=== PATIENT | male | born 1960 | race Caucasian/White ===

== ENCOUNTER 2017-12-05 05:59 | Inpatient (IN) | payer BC, SELFPAY ==
[2017-12-05] VITALS (16 sets, daily range): BP systolic 115–139; BP diastolic 57–108; PULSE 85–156; RESP 16–26; TEMP 36.3–37; O2SAT 94–100; BMI 23.9; BMI 23.6
--- NOTE | 2017-12-05 06:07 | RAD_ITS ---
RAD/Chest 1 View (Portable) IMPRESSION: Stable COPD. Interstitial prominence, slightly more pronounced in the right base possible due to compression. No air bronchograms to suggest a confluent pneumonia detected. Electronically Signed: Kinjal Bernardo MD at 6:44 EDT , Service support ,
[2017-12-05] MEDS: dilTIAZem 25 MG/5 ML Vial 20 MG IV BOLUS (06:09)
[2017-12-05] MEDS: Aspirin 81 MG TAB.CHEW 324 MG PO (06:10)
[2017-12-05 06:18] LABS: Absolute Lymphocyte Count 1.79 X10^3/ul (0.83-4.51); Absolute Neutrophil Count 6.7 X10^3/uL (2.0-7.7); Basophil# 0.05 X10^3/uL; Basophil% 0.5 % (0-1); Eosinophil# 0.21 X10^3/uL; Eosinophils% 2.2 % (0-5); Hematocrit 45.1 % (40-54); Hemoglobin 14.8 g/dl (13.0-16.5); Lymphocyte # 1.79 X10^3/ul (4.0); Lymphocyte % 18.5 % (19-41); Mean Corp Hgb Conc 32.8 g/gl (32-36); Mean Corpuscular Volume 94.4 fL (80-94); Mean Platelet Vol. 11.5 fl (6.2-12.0); Monocyte# 0.91 X10^3/uL; Monocyte% 9.4 % (0-10); Neutrophil # 6.71 X10^3/uL (2.7-7.7); Neutrophil % 69.2 % (47-70); Platelet Count 233 K/mm3 (150-450); RBC Distribution Width CV 14.5 % (11.6-14.6); RBC Distribution Width SD 49.2 fl (35.1-43.9); Red Blood Count 4.78 M/mm3 (4.6-6.2); White Blood Count 9.7 K/mm3 (4.4-11.0)
[2017-12-05 06:23] LABS: POSITIVE COUNT NO; POSITIVE DIFFERENTIAL NO; POSITIVE MORPHOLOGY NO
[2017-12-05 06:53] LABS: Anion Gap 10 (5-15); BUN 10 mg/dL (7-18); BUN/Creat Ratio 10.7 RATIO (10-20); Calcium,Total 8.3 mg/dL (8.5-10.1); Chloride 105 mmol/L (98-107); Creatinine, Serum 0.93 mg/dL (0.70-1.30); EST Glomerular Filtration Rate 88 mL/min (>60); Est Glom Filt Rate - Afr Amer 107 mL/min (>60); Estimated Creatinine Clearance 92.21 ml/min; Glucose 103 mg/dL (74-106); Sodium Level 143 mmol/L (136-145)
--- NOTE | 2017-12-05 07:17 | ED.VISSUMM ---
- ER Visit Summary Date of Service: 12/05/17 Chief Complaint: Shortness of breath History of Present Illness: The patient is a 57 M presenting for evaluation secondary shortness of breath. Patient reports that at about 4:00 this morning he woke up and had a sudden onset of feeling that he was significantly short of breath. Patient states it was not associated with any sort of chest pain, and states that the shortness of breath was worse with exertion and really did not seem to have any sort of relieving factors. He denies that he has been having any illnesses recently, but does state that he has been having some intermittent palpitations over the course the last couple of weeks. Patient states that he has a history of hypertension but does not take his medications for this. Patient is a heavy smoker. Denies any DVT or PE risk factors. Review of systems otherwise negative. Physical Examination: Vital signs notable for heart rate of 150. Well-nourished male no acute distress. Moist mucous membranes. No JVD. Heart was irregular and significantly tachycardic without murmur noted. Lung sounds were clear. Abdomen was soft nontender. Extremities were nontender nonedematous 2+ radial pulses bilaterally symmetric skin was normal color no rash patient was alert and oriented with no lateralizing neurological deficits. Test Results: EKG demonstrates atrial fibrillation with a rapid ventricular rate, rate of 142 with nonspecific T-wave changes. CBC chemistry unremarkable troponin elevated to an indeterminate range at 0.06. Chest x-ray shows some interstitial changes, blood per radiology no evidence of confluent pneumonia. Emergency Department Course and Treatment: Patient presented secondary to atrial fibrillation with rapid ventricular rate. I did attempt vagal maneuvers on this patient in an attempt to slow down or convert him. This was unsuccessful, so the patient was given 20 mg of Cardizem and had improvement of his heart rate 200. Patient's workup does show some elevated troponin likely associated with cardiac strain from the patient's rapid rate. He had improvement on repeat evaluation, but I still believe he requires admission I discussed this with hospitalist Disposition: Admission Impression: 1. New onset atrial fibrillation with rapid ventricular rate This note was generated with [employer]ation software. It may contain incorrect words, spelling, and punctuation that were not noted in review of the chart prior to signing ED Disposition - Plan for ED Patient: Chief Complaint: Shortness of Breath Referrals: Nathaniel Be MD [Primary Care Provider] -
--- NOTE | 2017-12-05 07:26 | ED.DCSUM_ITS ---
- ER Visit Summary Date of Service: 12/05/17 Chief Complaint: Shortness of breath History of Present Illness: The patient is a 57 M presenting for evaluation secondary shortness of breath. Patient reports that at about 4:00 this morning he woke up and had a sudden onset of feeling that he was significantly short of breath. Patient states it was not associated with any sort of chest pain, and states that the shortness of breath was worse with exertion and really did not seem to have any sort of relieving factors. He denies that he has been having any illnesses recently, but does state that he has been having some intermittent palpitations over the course the last couple of weeks. Patient states that he has a history of hypertension but does not take his medications for this. Patient is a heavy smoker. Denies any DVT or PE risk factors. Review of systems otherwise negative. Physical Examination: Vital signs notable for heart rate of 150. Well- nourished male no acute distress. Moist mucous membranes. No JVD. Heart was irregular and significantly tachycardic without murmur noted. Lung sounds were clear. Abdomen was soft nontender. Extremities were nontender nonedematous 2+ radial pulses bilaterally symmetric skin was normal color no rash patient was alert and oriented with no lateralizing neurological deficits. Test Results: EKG demonstrates atrial fibrillation with a rapid ventricular rate , rate of 142 with nonspecific T-wave changes. CBC chemistry unremarkable troponin elevated to an indeterminate range at 0.06. Chest x-ray shows some interstitial changes, blood per radiology no evidence of confluent pneumonia. Emergency Department Course and Treatment: Patient presented secondary to atrial fibrillation with rapid ventricular rate. I did attempt vagal maneuvers on this patient in an attempt to slow down or convert him. This was unsuccessful, so the patient was given 20 mg of Cardizem and had improvement of his heart rate 200. Patient's workup does show some elevated troponin likely associated with cardiac strain from the patient's rapid rate. He had improvement on repeat evaluation, but I still believe he requires admission I discussed this with hospitalist Disposition: Admission Impression: 1. New onset atrial fibrillation with rapid ventricular rate This note was generated with [employer] software. It may contain incorrect words, spelling, and punctuation that were not noted in review of the chart prior to signing ED Disposition - Plan for ED Patient: Chief Complaint: Shortness of Breath Referrals: Nathaniel Be MD [Primary Care Provider] -
--- NOTE | 2017-12-05 07:26 | PCM.HP.STD ---
Problem List (1) Atrial fibrillation with RVR Status: Acute (2) Tobacco user Status: Chronic History of Present Illness Date of Admission: 12/05/17 Chief Complaint: SOB, palpitations - 6 days The patient is a 57 year old M with past medical history of nicotine dependence, comes in with complaints of shortness of breath ongoing for 6 days. Patient noticed sudden onset of shortness of breath 6 days ago that lasted for a short time and went away. Over the course of the next few days she had associated palpitations with shortness of breath that was worse with exertion. Denied any chest pain or dizziness or fever or chills or night sweats or weight loss. He denied any leg swelling orthopnea or PND. In the emergency department, his vitals showed heart rate 156, blood pressure 132/108, respiratory rate of 21, 97.4F EKG shows atrial fibrillation with RVR Admitting blood work was unremarkable except for elevated troponin of 0.062. Past Medical History Past Medical History (Chronic Problems): Chronic Problems Hypotension (Chronic) Psoriasiform eczema (Chronic) Tobacco user (Chronic) Psoriasis (Chronic) Fatty liver (Chronic) Allergies No Known Allergies Allergy (Verified 12/05/17 06:03) Home Medications: Ambulatory Orders Medication Instructions Recorded Acetaminophen [Tylenol Extra 1,000 mg PO BID 12/05/17 Strength] Surgical History: herniorrhaphy, - - Eye surgery as child. Psychiatric History: No pertinent psych hx Lives: With Family Smoking Status: Current every day smoker Tobacco Use: Cigarettes Alcohol: None Drugs: None - *Family History Maternal History Items: Asthma, Hypertension Paternal History Items: Heart Disease, Hypertension - Father w/ history of [place] 60-61. Notes his paternal uncles w/ history of early [place] also. Review of Systems Constitutional: Denies: Anorexia, Chills, Fever, Malaise, Weakness, Weight Change Eyes: Denies: Blurred vision, Cataracts, Conjunctivae Inflammation, Pain, Redness, Vision Change HEENT: Denies: Difficulty Hearing, Difficulty Swallowing, Head Aches, Hearing Changes, Sinus Congestion, Sinus Drainage Cardiovascular: Denies: Chest Pain, Claudication, Light Headedness, Orthopnea, Palpitations, Syncope Respiratory: Reports: Shortness of Breath, Shortness of breath at rest, Shortness of breath upon exertion. Denies: Cough, Hemoptysis, Pleuritic Pain, Sputum production Gastrointestinal: Denies: Abdominal Pain, Constipation, Hematemesis, Hematochezia, Nausea, Vomiting Genitourinary: Denies: Dysuria, Frequency, Incontinence Musculoskeletal: Denies: Joint Pain, Joint stiffness, Joint swelling, Joint Tenderness Skin: Denies: Pruritis, Rash, Wounds Neurological: Reports: Headaches - mild bilateral temporal headaches, Numbness - left thenar region, not new, ongoing for 5 years. Denies: Focal weakness, Tingling Psychiatric: Denies: Anxiety, Depression, Homicidal Ideations, Suicidal Ideations Hematologic/ Lymphatic: Denies: Easy Bruising, Easy Bleeding VTE Information - Inpt Only VTE Present on Admission: No VTE Pharm Prophylaxis ordered?: Yes Patient Problems: Active and Suspected Problems Atrial fibrillation with RVR (Acute) - Physical Exam General: Alert, Oriented x3, Cooperative, No apparent distress HEENT: Atraumatic, PERRLA, EOMI, Normocephalic Oral: Moist Mucosa Neck: Supple, No JVD, Negative Carotid Bruits Lungs: Clear to auscultation, Normal air movement Cardiovascular: Regular rate, Regular Rhythm, Normal S1, Normal S2, No murmurs Abdomen: Bowel Sounds Present, Soft, Non Tender, Non-Distended, No Hepato-splenomegaly Extremities: No edema Skin: No rashes, No breakdown Musculoskeletal: No Tenderness to Palpation of Joints or Extremities Lymphatic: No Cervical, Supraclavicular, or Inguinal Adenopathy Neurological: Cranial nerves II-XII grossly intact, Neuro grossly intact Psych/Mental Status: Normal Affect, Appropriate Vital Signs Temp Pulse Resp BP Pulse Ox 97.4 F L 112 H 25 H 120/85 H 94 12/05/17 06:00 12/05/17 06:53 12/05/17 06:53 12/05/17 06:53 12/05/17 06:53 Oxygen Delivery Method Room Air Weight: 77.9 kg Body Mass Index (BMI) 23.9 Laboratory Tests Past 24 Hrs 12/05/17 12/05/17 06:03 06:03 WBC 9.7 RBC 4.78 Hgb 14.8 Hct 45.1 MCV 94.4 H MCH 31.0 MCHC 32.8 RDW 14.5 RDW Differential 49.2 H Plt Count 233 MPV 11.5 Immature Gran % (Auto) 0.200 Neut % (Auto) 69.2 Lymph % (Auto) 18.5 L [place] % (Auto) 9.4 Eos % (Auto) 2.2 Baso % (Auto) 0.5 Absolute Neuts (auto) 6.7 Absolute Lymphs (auto) 1.79 Total Counted Not Reportable Sodium 143 Potassium 4.0 Chloride 105 Carbon Dioxide 28.0 Anion Gap 10 BUN 10 Creatinine 0.93 Estim Creat Clear Calc 92.21 Est GFR (MDRD) Af Amer 107 Est GFR (MDRD) Non-Af 88 BUN/Creatinine Ratio 10.7 Glucose 103 Calcium 8.3 L Troponin I 0.062 H Assessment/Plan All Active Problems Atrial fibrillation with RVR (Acute) 57 year old M with past medical history of nicotine dependence, comes in with complaints of shortness of breath ongoing for 6 days. Patient noticed sudden onset of shortness of breath 6 days ago that lasted for a short time and went away . It kept recurring over the subsequent days and worse when he woke up this am. 1. Shortness of breath likely secondary to A. fib with RVR, patient was given Cardizem bolus in the ED, rate controlled at time of admission to the floor. Plan: Admit to PCU, monitor on telemetry, Lovenox therapeutic dosing twice daily, 2D echo, trend troponins, continue on metoprolol 25 mg p.o. twice daily check D-dimer to r/o PE 2. Elevated troponin, likely secondary to demand ischemia, continue to trend troponins 3. Hypertension, uncontrolled, will monitor with start of metoprolol 4. Nicotine dependence, on replacement 5. DVT prophylaxis with Lovenox -therapeutic dosing Code Visit Inpatient E&M: 11285 [facility] Hosp L2
[2017-12-05] MEDS: dilTIAZem 30 MG Tablet PO (07:27)
[2017-12-05] MEDS: 0.9% Normal Saline 1,000 ML 75 ML IV (08:00)
[2017-12-05 08:23] LABS: Thyroid Stim Hormone (TSH) 0.89 uIU/mL (0.358-3.74)
[2017-12-05 08:39] LABS: BNP,B-Type NATRIURETIC PEPTIDE 1047.6 pg/mL (0-100)
[2017-12-05 09:12] LABS: D-Dimer Quantitative (DVT/PE) 0.28 FEU/ug/m (0.27-0.49)
[2017-12-05] MEDS: Enoxaparin 80 MG/0.8 ML Syringe SC (10:20)
[2017-12-05] MEDS: Metoprolol Tartrate 25 MG Tablet PO (10:20)
[2017-12-05] MEDS: 0.9% NaCl Peripheral Flush Adult/Peds IV (13:35)
[2017-12-05] MEDS: Furosemide 20 MG/2 ML VIAL IV (13:35)
--- NOTE | 2017-12-05 13:59 | CASEMGMT ---
Per [employer] Website, tertiary hospitals in Network w/ [employer] insurance are as follows: [facility], [facility], [facility], [facility], [facility], [facility], [facility], [facility], [facility], [facility] Jaime SINGHN RN CM
--- NOTE | 2017-12-05 14:05 | PCM.CONS.C ---
Problem List (1) LV dysfunction Status: Acute (2) Non-STEMI (non-ST elevated myocardial infarction) Status: Acute (3) Atrial fibrillation with RVR Status: Acute (4) Tobacco user Status: Chronic Reason for Consult Date of Consultation: 12/05/17 Reason for Consultation: Atrial fibrillation, non-STEMI, LV dysfunction, hypertension History of Present Illness: The patient is a 57 year old M [id number] smoking history, nondiabetic, with hypertension, unknown cholesterol, no previous known cardiac disease, who has noted worsening insomnia over the last several weeks, culminating into not feeling well this past Sunday after visiting with his grandchildren. Patient noted shortness of breath, diaphoresis, but no chest pain or anginal symptoms. He denied any palpitations, but did have dyspnea on exertion. His symptoms worsened over the weekend and when he went to go cut his grass this past Sunday he was unable to complete his grass cutting despite the fact that he done in a week and a half ago without any difficulty whatsoever. His main issue was extreme diaphoresis, shortness of breath and dyspnea on exertion. When the patient's symptoms did not improve he reported to [facility] ER where he is found to be in atrial fibrillation with rapid ventricular response which was a new diagnosis for him. He was admitted and placed on Cardizem as well as subcu Lovenox. A 2D echo with Doppler today demonstrated severe LV dysfunction with an EF around 25% and atrial fibrillation. EKG shows atrial fibrillation with rapid ventricular response and poor R-wave progression across precordium possibly suggestive of an old anterior wall myocardial infarction. Previous EKG in 2014 showed sinus bradycardia with adequate R-wave progression. Patient has low normal troponins and maximum which is 0.06, and trending downwards. His TSH is normal. Chest x-ray shows clear lungs bilaterally, no evidence of pulmonary edema. [] Past Medical History Allergies/Adverse Reactions: Allergies doxycycline Allergy (Verified 12/05/17 08:36) Rash Home Medications: Ambulatory Orders Medication Instructions Recorded Acetaminophen [Tylenol Extra 1,000 mg PO BID 12/05/17 Strength] Past Medical History (Chronic Problems): Chronic Problems Hypotension (Chronic) Psoriasiform eczema (Chronic) Tobacco user (Chronic) Psoriasis (Chronic) Fatty liver (Chronic) Surgical History: herniorrhaphy, - - Eye surgery as child. Psychiatric History: No pertinent psych hx - *Family History Maternal History Items: Asthma, Hypertension Paternal History Items: Heart Disease, Hypertension - Father w/ history of [place] 60-61. Notes his paternal uncles w/ history of early [place] also. Lives: With Family Smoking Status: Current every day smoker Tobacco Use: Cigarettes Alcohol: None Drugs: None Review of Systems - Review of Systems General: Denies: Fever, Night Sweats, Fatigue Cardiovascular: Reports: Shortness of Breath with Exertion, Palpitations. Denies: Chest Discomfort, Orthopnea, PND, Peripheral Edema, Lightheadedness, Dizziness, Near Syncope, Syncope Respiratory: Denies: Cough, Sputum Production, Hemoptysis Gastrointestinal: Denies: Hematemesis, Hematochezia, Melena Genitourinary: Denies: Dysuria, Hematuria Skin: Denies: Rash Subjectve: Patient sitting up in bed, no acute distress. Objective: Vital Signs Temp Pulse Resp BP Pulse Ox 98.4 F 85 16 121/69 H 98 12/05/17 10:20 12/05/17 11:03 12/05/17 10:20 12/05/17 10:20 12/05/17 10:20 Oxygen Delivery Method Room Air Weight: 169 lb 8.568 oz Body Mass Index (BMI) 23.6 Intake and Output for Last 24 Hours 12/03/17 12/04/17 12/05/17 23:59 23:59 23:59 Intake Total 424 / 424 Balance 424 / 424 General: Awake, Alert, Oriented x 3 HEENT: PERRL, EOMI, Sclera Non Icteric Neck: Supple, Good ROM, No Lymph Node Enlargement Lungs: Clear to auscultation Cardiovascular: Irregular Rhythm, Normal S1, Normal S2, No Murmurs, No Rubs, No Gallops Vascular: No Carotid Bruits, Normal Femoral Pulses, Normal Radial Pulses, Normal Dorsalis Pedal Pulse, Normal Posterior Tibial Pulses Abdomen: Bowel Sounds Present, Soft, Non Tender, No HSM, No Organomegaly Extremities: No Cyanosis, No Clubbing, No edema Neurological: No Focal Motor or Sensory Deficit 12/05/17 08:55: Troponin I 0.047 H 12/05/17 12:12: Troponin I 0.043 Rhythm: EKG: ECHO: Severely dysfunction with an EF of 25%, severe left atrial enlargement, atrial fibrillation, unable to quantitate RVSP. Stress Test: Cardiac Cath: Pending PCI: CT Surgery: Holter monitor: EPS: PPM: CXR: Chest CT Scan: Assessment/Plan 1. LV dysfunction: Patient has significant LV dysfunction as diagnosed by echocardiogram and evidence on his EKG of possible old anteroseptal wall myocardial infarction. Patient has newly diagnosed atrial fibrillation with rapid ventricular response. He does not appear to have significant pulmonary edema by chest x-ray or by physical exam and has no evidence of edema. At this point I recommend rate control with Coreg 3.125 mg p.o. twice daily and starting him on Cozaar 25 mg p.o. daily for afterload reduction. Patient received 1 dose of IV Lasix, and his breathing has improved. Also recommended that he undergo a left heart catheterization tomorrow morning to determine if he has any coronary artery disease that could explain his significant LV dysfunction. Recommend holding his Lovenox tomorrow morning and loading him with Plavix 3 mg ?1 now followed by 75 mg p.o. daily starting tomorrow. Recommend starting baby aspirin 81 mg p.o. daily. If the patient has no significant coronary disease we will discontinue his Plavix and continue baby aspirin as well as Coumadin. He will continue Coumadin for period of 4 weeks time followed by elective DC cardioversion. If his cardioversion is successful and durable, we will repeat his echocardiogram in 3 months time. If his LV dysfunction has not improved with maximal medical therapy and resynchronization he may require a prophylactic AICD therapy. In addition would recommend a 1500 cc fluid restriction going forward. His TSH is normal so this most likely not a thyroid related issue. 2. Hyperlipidemia: Recommend obtaining a fasting lipid profile. Recommend treating his LDL to less than 70. 3. Tobacco cessation: I had a long and thorough discussion with the patient and his daughter regarding tobacco cessation, and strongly recommended he discontinue all tobacco products. Patient is voiced understanding and agrees to quit. 4. Discussed with Dr. Mendes. Thank you very much for the opportunity to participate in the cardiac care of your patient. Consultation time took place between 145 and 2:15 PM. Code Visit Inpatient E&M: 80812 Init Hosp L2
--- NOTE | 2017-12-05 14:25 | CASEMGMT ---
SEE KIMBERLY CHILDS ASSESS LINK: D/C PLAN: HOME Intro role to KIMBERLY CHILDS. Pt independent with all ADL's, drives, and uses no DME. No needs identified. Pt's daughter in room with pt at time of assessment. Pt and daughter state they have questions re: heart cath scheduled for tomorrow and daughter voicing concerns about pt having cath done @ [facility]. Daughter and pt asking questions about pt having cath done @ another hospital that would be able to provide all levels of care for pt in the event her dad would need more done than [facility] veterinary laboratory technician is able to do. Pt given list of tertiary hospitals that are in-network with [facility]. KIMBERLY CHILDS stated will have Primary RN talk with them re: questions and concerns. They stated they would also like to talk to Dr Vazquez if he is available. KIMBERLY Spencer, made aware. Jaime SINGHN KIMBERLY CHILDS
[2017-12-05] MEDS: Clopidogrel Bisulfate 300 MG Tablet PO (14:26)
[2017-12-05 14:42] LABS: Hemoglobin A1c 5.3 % (4.2-6.3)
--- NOTE | 2017-12-05 16:15 | PCM.DC ---
- Discharge Diagnoses Current Active Problems: Current Active and Chronic Problems Atrial fibrillation with RVR (Acute) LV dysfunction (Acute) Non-STEMI (non-ST elevated myocardial infarction) (Acute) Reason(s) for Visit for Discharge Instructions: Palpitations, new onset LV dysfunction You will use the following diet at home:: Cardiac Your food should be the consistency of: Regular Your liquids should be the consistency of: Regular/Thin Discharge Activity: Return to Normal Activity Allergies/Adverse Reactions: Allergies doxycycline Allergy (Verified 12/05/17 08:36) Rash Medications to take at Discharge Acetaminophen [Tylenol Extra Strength] 1,000 mg PO BID 12/05/17 Primary Care Physician: Nathaniel Be MD [Primary Care Provider] - Please follow up with your Primary Care Physician in: within 2 week of Test Results: Test results from this visit will be discussed in further detail at your follow-up appointment, if applicable. Proposed Discharge Date: 12/05/17
--- NOTE | 2017-12-05 16:19 | PCM.DC.SUM ---
Discharge Date and Diagnosis Date of Admission: 12/05/17 Date of Discharge: 12/05/17 - Primary Discharge Diagnosis Active and Suspected Problems Atrial fibrillation with RVR (Acute) LV dysfunction (Acute) Non-STEMI (non-ST elevated myocardial infarction) (Acute) - Secondary Discharge Diagnosis Chronic Problems Hypotension (Chronic) Psoriasiform eczema (Chronic) Tobacco user (Chronic) Psoriasis (Chronic) Fatty liver (Chronic) Hospital Course and Treatment Imaging Results: 12/05/17 07:58 Echo Complete W/ Contrast [ECHO] Routine Cardiology Operations: None Procedures: 2-D Echocardiogram Summary of Care Provided: 57 year old M with past medical history of nicotine dependence, comes in with complaints of shortness of breath ongoing for 6 days. Patient noticed sudden onset of shortness of breath 6 days ago that lasted for a short time and went away . It kept recurring over the subsequent days and worse when he woke up on the day of admission. Patient was found to be in A. fib with RVR in the ED, was given Cardizem bolus, he was rate controlled. Started on Lovenox therapeutic dosing. He was rate controlled on metoprolol 25 mg p.o. twice daily. Patient had 2D echo done that showed significant left ventricular dysfunction with EF of 25%. Review of patient previous echo showed EF of about 46%. Patient also has slight elevation in troponin. Cardiology was consulted, recommended cardiac cath. Upon discussion with the patient and family, patient preferred to have workup done in [facility]. Patient was transferred to [facility] request of family. Discharge Diet: Low fat/ Low Cholesterol, 2000 mg Sodium Diet Discharge Activity: Return to Normal Activity Home Medications: Medications to take at Discharge Acetaminophen [Tylenol Extra Strength] 1,000 mg PO BID 12/05/17 Primary Care Physician: Nathaniel Be MD [Primary Care Provider] - Please follow up with your Primary Care Physician in: within 2 week of Disposition: Acute care Hospital Minutes spent on discharge:: 55 - Time spent coordinating transfer to acute care hospital Patient Condition:: Stable Medical Necessity - Tobacco Use Smoking Status: Current every day smoker Tobacco Use: Cigarettes Meaningful Use Info Meaningful Use Diagnoses (Choose all that apply): None applicable Code Visit Inpatient E&M: 94572 Disch Hosp
--- NOTE | 2017-12-05 19:32 | NURSING ---
Called report to Sara HARRIS at [facility]
--- NOTE | 2017-12-05 19:49 | NURSING ---
CALLED FOR TRANSPORT FROM [facility]. THEY WILL BE HERE IN 30-45 MINUTES.
[2017-12-05] MEDS: Carvedilol 3.125 MG TABLET PO (20:06)
--- NOTE | 2017-12-05 20:29 | NURSING ---
transport at bedside. patient getting transported to [facility]. report given to transport team. at bedside.
== END 2017-12-05 20:30 | disposition short-term general hospital (02) | DRG 282 ==
LOC: ED 07:26 → PCU 07:29
PROVIDERS: Admitting Provider Internal Medicine; Emergency Provider Emergency Medicine; Family Provider Family Medicine; PCP Family Medicine; Visit Provider Internal Medicine
DX: I48.91 Unspecified atrial fibrillation (principal); I21.4 Non-ST elevation (NSTEMI) myocardial infarction; F17.210 Nicotine dependence, cigarettes, uncomplicated; K76.0 Fatty (change of) liver, not elsewhere classified; L40.9 Psoriasis, unspecified; I11.9 Hypertensive heart disease without heart failure
CPT/HCPCS: 71045; 80048; 83036; 83880; 84443; 84484; 85025; 85379; 93005; 93306; 99285; 99406; J7030; Q9957; A4216; C8929; J1940

== ENCOUNTER → 2017-12-13 12:37 | Outpatient (CLI) | payer BC, SELFPAY ==
[2017-12-13 14:08] LABS: Anion Gap 9 (5-15); BUN 25 mg/dL (7-18); BUN/Creat Ratio 24.5 RATIO (10-20); Calcium,Total 8.9 mg/dL (8.5-10.1); Chloride 98 mmol/L (98-107); Creatinine, Serum 1.02 mg/dL (0.70-1.30); EST Glomerular Filtration Rate 80 mL/min (>60); Est Glom Filt Rate - Afr Amer 96 mL/min (>60); Glucose 94 mg/dL (74-106); Potassium 4.5 mmol/L (3.5-5.1); Sodium Level 135 mmol/L (136-145)
== END ==
PROVIDERS: Family Provider Family Medicine; PCP Family Medicine; Visit Provider Family Medicine
DX: I50.9 Heart failure, unspecified (principal)
CPT/HCPCS: 36415; 80048

== ENCOUNTER 2017-12-25 10:30 | Emergency (ER) | payer BC, SELFPAY ==
[2017-12-25] VITALS (10 sets, daily range): BP systolic 112–136; BP diastolic 80–90; PULSE 62–72; RESP 12–19; TEMP 36.4; O2SAT 94–100; BMI 24.8
--- NOTE | 2017-12-25 10:51 | EKG12_ITS ---
Test Reason : Blood Pressure : / mmHG Vent. Rate : 066 BPM Atrial Rate : 066 BPM P-R Int : 156 ms QRS Dur : 098 ms QT Int : 418 ms P-R-T Axes : 079 070 133 degrees QTc Int : 438 ms Normal sinus rhythm T wave abnormality, consider lateral ischemia Abnormal ECG Confirmed by TERI YOUNGER, INNA ([id number]), newspaper editor managing CRISTELA RODRIGUEZ ([id number]) on 12/28/2017 1:14:59 PM Referred By: BRIONNA Confirmed By:INNA WILLIAMSON MD
--- NOTE | 2017-12-25 11:04 | RAD_ITS ---
STUDY: X-RAY CHEST REASON FOR EXAM: Male, 57 years old. Chest tightness. TECHNIQUE: Single AP portable view of the chest. COMPARISON: Comparison is made with prior study dated December 05, 2017. FINDINGS: EKG electrodes are seen. Hyperinflation. Scattered calcified granulomas. The lungs are clear. There is no demonstrated pleural abnormality. Normal size heart. Normal mediastinum and rudi. Normal visualized pulmonary arteries. Normal visualized aortic arch and descending thoracic aorta. Normal visualized thoracic spine. Normal visualized ribs, clavicles, and shoulders. There is no demonstrated abnormality of the visualized soft tissue structures of the upper abdomen. RAD/Chest 1 View (Portable) IMPRESSION: Hyperinflation. No acute abnormality is seen. Electronically Signed: Tanmay Zheng MD at 11:18 EDT Tel [phone], Service support ,
--- NOTE | 2017-12-25 11:10 | NURSING ---
ATTEMPTING TO REACH MEDICAL RECORDS AT [facility] FOR CATH REPORT AND EKG FROM LAST MONTH.
[2017-12-25 11:29] LABS: Absolute Lymphocyte Count 1.89 X10^3/ul (0.83-4.51); Absolute Neutrophil Count 5.1 X10^3/uL (2.0-7.7); Basophil# 0.07 X10^3/uL; Basophil% 0.9 % (0-1); Eosinophils% 2.5 % (0-5); Hematocrit 45.5 % (40-54); Hemoglobin 15.1 g/dl (13.0-16.5); Lymphocyte # 1.89 X10^3/ul (4.0); Lymphocyte % 23.4 % (19-41); Mean Corp Hgb Conc 33.2 g/gl (32-36); Mean Corpuscular Hgb 30.6 pg (27.0-32.0); Mean Corpuscular Volume 92.1 fL (80-94); Mean Platelet Vol. 10.6 fl (6.2-12.0); Monocyte# 0.84 X10^3/uL; Monocyte% 10.4 % (0-10); Neutrophil # 5.05 X10^3/uL (2.7-7.7); Neutrophil % 62.4 % (47-70); Platelet Count 262 K/mm3 (150-450); RBC Distribution Width CV 13.7 % (11.6-14.6); RBC Distribution Width SD 45.2 fl (35.1-43.9); Red Blood Count 4.94 M/mm3 (4.6-6.2); White Blood Count 8.1 K/mm3 (4.4-11.0)
[2017-12-25 11:32] LABS: POSITIVE COUNT NO; POSITIVE DIFFERENTIAL NO; POSITIVE MORPHOLOGY NO
[2017-12-25 11:41] LABS: Anion Gap 8 (5-15); BUN 19 mg/dL (7-18); BUN/Creat Ratio 22.9 RATIO (10-20); Calcium,Total 8.7 mg/dL (8.5-10.1); Chloride 101 mmol/L (98-107); Creatinine, Serum 0.83 mg/dL (0.70-1.30); EST Glomerular Filtration Rate 101 mL/min (>60); Est Glom Filt Rate - Afr Amer 122 mL/min (>60); Estimated Creatinine Clearance 100.17 ml/min; Glucose 89 mg/dL (74-106); Potassium 4.5 mmol/L (3.5-5.1); Sodium Level 139 mmol/L (136-145)
--- NOTE | 2017-12-25 13:13 | NURSING ---
CALLED [facility], IN MEDICAL RECORDS. FAXED RELEASE TO HER [phone] SCHNEIDER OFFICE, THEY WILL SEND CATH REPORT AND EKG TO US
--- NOTE | 2017-12-25 14:33 | NURSING ---
DR MANZANARES PAGED
--- NOTE | 2017-12-25 14:34 | NURSING ---
DR LEIGHTON STATON
[2017-12-25 15:04] LABS: Erythrocyte Sedimentation Rate 8 mm/hr (0-20)
--- NOTE | 2017-12-25 16:00 | ED.VISSUMM ---
- ER Visit Summary Date of Service: 12/25/17 Chief Complaint: Chest discomfort, dyspnea, diaphoresis History of Present Illness: The patient is a 57 M who has history of nonischemic cardiomyopathy and A. fib with RVR was diagnosed the past month who presents with chest tightness, dyspnea and diaphoresis that occurred at work. He did report lightheadedness. He denied any radiation of the discomfort. He has minimal discomfort at this time. He initially told the nurse he is on no anticoagulant. He is presently on Eliquis. His only cardiac risk factor is tobacco. He reports he had a cardiac catheterization [facility]. The cath was performed by Dr. Brandon Knox. The report was faxed to us from [facility] and left main, left anterior descending, left circumflex artery and right coronary artery are normal with 0% stenosis or plaques. The posterior descending artery was normal with 0% stenosis and no plaque. The distal right coronary artery to the distal third right posterior lateral artery was normal with no stenosis or plaque. EF was 22%. EF on echo performed prior to transfer to [facility] was 25%. Physical Examination: Vital signs are noted. Slightly diaphoretic. Blood pressure slightly elevated 139/89. Head is atraumatic normocephalic. Pupils are equal round reactive. Extraocular muscles are intact. TMs are pearly white with landmarks noted. Nares patent with no drainage. Posterior pharynx without erythema or exudate. Uvula is midline. There is no dysphonia or dysphasia. Trachea is midline. There is no stridor with auscultation of the neck. Heart is regular without murmur, gallop or rub. S1 and S2 are normal. Lungs are clear to auscultation with good movement of air bilaterally. Abdomen is soft nontender. Neuro exam is nonfocal. There is no asymmetry, swelling, discoloration, leg vein distention, palpable cords or tenderness along the distribution of the deep venous system. Test Results: EKG performed upon arrival revealed a sinus rhythm rate of [address]-T wave changes noted V3 through V4. This is unchanged from EKG obtained July 07, 2014. Portable chest x-ray reveals normal cardiac silhouette normal mediastinum. Osseous structures are normal. Minimal chronic lung parenchymal changes noted. CBC unremarkable. Basic metabolic panel is unremarkable. Troponin less than 0.015. ESR was obtained to evaluate for pericarditis and negative. Emergency Department Course and Treatment: With history of EF of 25% concern for coronary disease cardiac workup was undertaken. After reviewing records from [facility] patient has no evidence of coronary artery disease. His cardiomyopathy is nonischemic and most likely secondary to viral infection. ESR was obtained to evaluate for evidence of pericarditis. Treatment Plan: Follow-up with primary care physician as needed. Disposition: Discharged home Impression: 1. Chest pain unknown etiology 2. Nonischemic cardiomyopathy 3. History of paroxysmal atrial fibrillation This note was generated with [employer] dictation software. It may contain incorrect words, spelling, and punctuation that were not noted in review of the chart prior to signing ED Disposition - Plan for ED Patient: Disposition: Home or Assisted Living Chief Complaint: Shortness of Breath Instructions: ED Chest Pain Atypical Unkn Cause, Living with Cardiomyopathy Referrals: Kendra Antunez MD [Primary Care Provider] - 3-5 Days
--- NOTE | 2017-12-25 16:05 | ED.DCSUM_ITS ---
- ER Visit Summary Date of Service: 12/25/17 Chief Complaint: Chest discomfort, dyspnea, diaphoresis History of Present Illness: The patient is a 57 M who has history of nonischemic cardiomyopathy and A. fib with RVR was diagnosed the past month who presents with chest tightness, dyspnea and diaphoresis that occurred at work. He did report lightheadedness. He denied any radiation of the discomfort. He has minimal discomfort at this time. He initially told the nurse he is on no anticoagulant. He is presently on Eliquis. His only cardiac risk factor is tobacco. He reports he had a cardiac catheterization [facility]. The cath was performed by Dr. Brandon Knox. The report was faxed to us from [facility] and left main, left anterior descending, left circumflex artery and right coronary artery are normal with 0% stenosis or plaques. The posterior descending artery was normal with 0% stenosis and no plaque. The distal right coronary artery to the distal third right posterior lateral artery was normal with no stenosis or plaque. EF was 22%. EF on echo performed prior to transfer to [facility] was 25%. Physical Examination: Vital signs are noted. Slightly diaphoretic. Blood pressure slightly elevated 139/89. Head is atraumatic normocephalic. Pupils are equal round reactive. Extraocular muscles are intact. TMs are pearly white with landmarks noted. Nares patent with no drainage. Posterior pharynx without erythema or exudate. Uvula is midline. There is no dysphonia or dysphasia. Trachea is midline. There is no stridor with auscultation of the neck. Heart is regular without murmur, gallop or rub. S1 and S2 are normal. Lungs are clear to auscultation with good movement of air bilaterally. Abdomen is soft nontender. Neuro exam is nonfocal. There is no asymmetry, swelling, discoloration, leg vein distention, palpable cords or tenderness along the distribution of the deep venous system. Test Results: EKG performed upon arrival revealed a sinus rhythm rate of [address]-T wave changes noted V3 through V4. This is unchanged from EKG obtained July 07, 2014. Portable chest x-ray reveals normal cardiac silhouette normal mediastinum. Osseous structures are normal. Minimal chronic lung parenchymal changes noted. CBC unremarkable. Basic metabolic panel is unremarkable. Troponin less than 0.015. ESR was obtained to evaluate for pericarditis and negative. Emergency Department Course and Treatment: With history of EF of 25% concern for coronary disease cardiac workup was undertaken. After reviewing records from [facility] patient has no evidence of coronary artery disease. His cardiomyopathy is nonischemic and most likely secondary to viral infection. ESR was obtained to evaluate for evidence of pericarditis. Treatment Plan: Follow-up with primary care physician as needed. Disposition: Discharged home Impression: 1. Chest pain unknown etiology 2. Nonischemic cardiomyopathy 3. History of paroxysmal atrial fibrillation This note was generated with [employer] dictation software. It may contain incorrect words, spelling, and punctuation that were not noted in review of the chart prior to signing ED Disposition - Plan for ED Patient: Disposition: Home or Assisted Living Chief Complaint: Shortness of Breath Instructions: ED Chest Pain Atypical Unkn Cause, Living with Cardiomyopathy Referrals: Kendra Antunez MD [Primary Care Provider] - 3-5 Days
== END 2017-12-25 16:23 | disposition home or self-care (01) ==
PROVIDERS: Emergency Provider Emergency Medicine; Family Provider Family Medicine; PCP Family Medicine
DX: R07.9 Chest pain, unspecified (principal); I42.9 Cardiomyopathy, unspecified; I48.0 Paroxysmal atrial fibrillation; Z72.0 Tobacco use; Z79.02 Long term (current) use of antithrombotics/antiplatelets; Z79.82 Long term (current) use of aspirin
CPT/HCPCS: 71045; 80048; 84484; 85025; 85652; 93005; 99285; J7030; A4216

== ENCOUNTER → 2018-01-16 15:26 | Outpatient (CLI) | payer BC, SELFPAY ==
--- NOTE | 2018-01-16 15:28 | CT_ITS ---
STUDY: LOW DOSE CT LUNG CANCER SCREENING REASON FOR EXAM: Male, 57 years old. 45 pack-year smoking history. RADIATION DOSAGE (If Supplied By Facility): CTDIvol = ( 2.55 ) mGy, DLP = ( 98.57 ) mGycm TECHNIQUE: No contrast was administered. Low dose technique was utilized (average mAS-38 and kVp 120). 1.25 mm axial source images with a slice interval of 1.25-mm were reconstructed in lung windows. 2.5 mm axial source images with a slice interval of 2.5-mm were reconstructed in lung windows. 5.0 mm axial source images with a slice interval of 5.0-mm were reconstructed in soft tissue windows. Nodule measured using lung windows on PACS and/or independent workstation with automated measurement of minimum and maximum diameter. Nodule measurement reported as average diameter rounded to the nearest whole number. Growth is defined as an increase ins size of greater than 1.5 mm. COMPARISON: None. NODULES: Total lung nodules (excluding granulomas): 0 Emphysema: There are minimal emphysematous changes lungs with minimal bilateral apical pleural scarring. Endobronchial lesion: None Aorta: Normal Coronary arteries: There is very minimal atherosclerotic changes of the coronary arteries. Heart: Normal in size Pulmonary artery: Normal Mediastinal nodes: There is nonspecific subcentimeter mediastinal lymphadenopathy. Other chest and abdominal findings: Minimal degenerative changes of the thoracic spine. CT/Low Dose CT Lung Screening IMPRESSION: Lung-RADS category 1 - Continue annual screening with LDCT in 12 months. IMPORTANT NOTES FOR USE: ACR Lung-RADS Version 1.0 Assessment Categories Release Date: August 11, 2013 Category: Coded 0-4 bases on nodule(s) with highest degree of suspicion. Negative screen is defined as categories 1 and 2; a positive screen is defined as categories 3 and 4. Category 3 and 4A nodules that are unchanged on interval CT should be coded as category 2, and individuals returned to screening in 12 months. Category 4X: Category 3 or 4 nodules with additional imaging findings that increase the suspicion of lung cancer, such as spiculation, GGN that doubles in size in 1 year, enlarged lymph notes, etc. Category Modifiers: S (significant finding unrelated to lung cancer) and C (prior history of treated lung cancer) may be added to the 0-4 Lung-RADS Electronically Signed: Elver Fernández DO at 21:09 EDT Tel [phone], Service support ,
== END ==
PROVIDERS: Family Provider Family Medicine; PCP Family Medicine; Referring Provider Internal Medicine Pulmonary Disease; Visit Provider Internal Medicine Pulmonary Disease
DX: Z87.891 Personal history of nicotine dependence (principal)
CPT/HCPCS: G0297

== ENCOUNTER → 2018-05-28 14:36 | Outpatient (CLI) | payer BC, SELFPAY ==
[2018-04-12 15:20] VITALS: BMI 23.6
--- NOTE | 2018-05-28 14:41 | ECHOD_ITS ---
Left Ventricle Normal left ventricle. The estimated ejection fraction is 35 %. Stage 1 diastolic dysfunction. No regional wall motion abnormalities noted. Right Ventricle Normal RV size. Normal systolic function. Atria Normal left atrium. Normal right atrium. Mitral Valve Normal mitral valve. Mild (1+) eccentric mitral valve insufficiency. Tricuspid Valve Normal tricuspid valve. Mild tricuspid valve insufficiency. Pulmonary artery systolic pressure is 30 mmHg. Aortic Valve Normal aortic valve. Trisinus/trileaflet aortic valve. Pulmonic Valve Normal pulmonic valve. Great Vessels Normal aortic root. The pulmonary artery is normal size. Normal inferior vena cava. Pericardium/Pleural No pericardial effusion. MMode/2D Measurements & Calculations LVIDd: 5.3 cm IVSd: 0.84 cm Ao root diam: 3.6 cm LVIDs: 4.0 cm LVPWd: 0.96 cm RVDd: 3.2 cm FS: 25.5 % LAV(MOD-bp): 50.0 ml LA A4 area: 17.4 cm2 LA dimension(2D): 3.8 cm LAV(MOD-bp) Indexed: 25.6 ml/m2 LAV(MOD-sp2): 49.6 ml LAV(MOD-sp4): 47.5 ml RA A4 area: 14.5 cm2 Time Measurements MV dec time: 0.35 sec Doppler Measurements & Calculations MV E max frank: 40.2 cm/sec Lat Peak E' Frank: 5.8 cm/sec Med Peak E' Frank: 4.8 cm/sec MV A max frank: 52.9 cm/sec E/E' lat: 6.9 E/E' med: 8.3 MV E/A: 0.76 Ao V2 max: 115.4 cm/sec LV V1 max: 88.4 cm/sec PA V2 max: 85.4 cm/sec Ao max P.3 mmHg LV V1 max P.1 mmHg TR max frank: 249.6 cm/sec TR max P.0 mmHg Interpretation Summary Normal left ventricle. The estimated ejection fraction is 35 %. Stage 1 diastolic dysfunction. Mild tricuspid valve insufficiency. Compared to previous study, the left ventricular systolic function has improved.. Ordering Physician: Yvon Patiño Referring Physician: Yvon Patiño
== END ==
PROVIDERS: Family Provider Family Medicine; PCP Family Medicine; Referring Provider Internal Medicine Cardiovascular Disease; Visit Provider Internal Medicine Cardiovascular Disease
DX: I42.8 Other cardiomyopathies (principal); I48.91 Unspecified atrial fibrillation; I50.21 Acute systolic (congestive) heart failure
CPT/HCPCS: 93306

== ENCOUNTER → 2018-07-15 15:34 | Outpatient (CLI) | payer BC, SELFPAY ==
[2018-06-04 15:35] VITALS: BMI 24.3
[2018-07-15 17:44] LABS: Anion Gap 7 (5-15); BUN 19 mg/dL (7-18); BUN/Creat Ratio 19.7 RATIO (10-20); Calcium,Total 8.8 mg/dL (8.5-10.1); Chloride 107 mmol/L (98-107); Creatinine, Serum 0.96 mg/dL (0.70-1.30); EST Glomerular Filtration Rate 85 mL/min (>60); Est Glom Filt Rate - Afr Amer 103 mL/min (>60); Glucose 90 mg/dL (74-106); Potassium 4.3 mmol/L (3.5-5.1); Sodium Level 141 mmol/L (136-145)
== END ==
PROVIDERS: Family Provider Family Medicine; PCP Family Medicine; Visit Provider Family Medicine
DX: I10 Essential (primary) hypertension (principal)
CPT/HCPCS: 36415; 80048

== ENCOUNTER 2018-08-16 06:25 | Day surgery (SDC) | payer BC, SELFPAY ==
[2018-08-08 10:30] VITALS: BMI 24.3
--- NOTE | 2018-08-15 19:44 | PCM.HP.BLA ---
History and Physical Date of Admission: 08/16/18 HISTORY OF PRESENT ILLNESS 58 year old man presents with a lesion on his left upper eyelid in the mid aspect by the eyebrow that has been increasing in size over the last several months. He states it is starting to bother his vision because it is in the way. He denies trauma. He denies bleeding. He denies fever. He denies recent infection. He states he had the lesion removed in 2018 and it has since recurred. He thinks he was told it was benign. He also has concerns about a soft tissue mass on his right posterior neck by occipital hairline that has increased in size over the last several months. He denies any recent infection. He denies fever. He denies any bleeding. He denies any trauma. There is some discomfort when he bumps it. He presents at this time for further evaluation and treatment. PAST MEDICAL HISTORY New onset atrial fibrillation Non-ischemic cardiomyopathy Acute systolic CHF (congestive heart failure) Nicotine dependence Atrial fibrillation with RVR Non-STEMI (non-ST elevated myocardial infarction) COPD (chronic obstructive pulmonary disease) Fatty liver Psoriasiform eczema Psoriasis PAST SURGICAL HISTORY eye surgery herniorrhaphy right and left heart catheterization ALLERGIES doxycycline MEDICATIONS furosemide losartan nitroglycerin carvedilol FAMILY HISTORY Father - Heart disease, Myocardial infarction, Hypertension Uncle - Heart disease, Myocardial infarction Mother - Hypertension, Asthma, Breast cancer, Diabetes SOCIAL HISTORY Smoking Status: Former smoker how long ago did patient quit smokin weeks ago alcohol intake: current alcohol intake frequency: holidays/special occasions only Alcohol type: beer REVIEW OF SYSTEMS General - Denies fever and weight loss. Has fatigue. Eyes - Denies cataracts and glaucoma. ENT - Denies nasal congestion and sore throat. Endocrine - Denies excessive thirst and urination. Skin - Denies skin cancer. Has enlarging lesion left upper eyelid in mid aspect by eyebrow and enlarging soft tissue mass right posterior neck by occipital hairline. Musculoskeletal - Denies joint pain, weakness of muscles and joints, back pain, and arthritis. Has joint stiffness. Neuro - Denies headaches. Cardiovascular - Denies chest pain, fatigue, and shortness of breath with exertion. Psych - Denies anxiety and depression. Respiratory - Denies chronic cough. Has shortness of breath. Patient is a former smoker. Gastrointestinal - Denies nausea, vomiting, diarrhea, and constipation. Hematologic - Denies abnormal bruising and bleeding. Genitourinary - Denies hematuria and urinary frequency. PHYSICAL EXAMINATION General - Alert and Oriented. HEENT - PERRL. EOMI. Throat is clear. On the left upper eyelid is a lesion that is nodular and raised in configuration. Located in mid aspect by eyebrow and measures 1 cm. No ulceration. Lesion is nontender. It has a stalk which helps it to protrude in the line of vision. Neck - Supple and nontender. No cervical adenopathy. On the right posterior neck by occipital hairline is a soft tissue mass. It is mobile. Some of the overlying skin is adherent to the mass. Measures 2 cm. No evidence of infection. Slight discomfort when bumped. No ulceration. Lungs - Clear to auscultation. Heart - Regular rate and rhythm. Abdomen - Soft and nondistended. Extremities - FROM. No axillary adenopathy. Radial pulses are palpable. Neuro - CN II-XII grossly intact. Psych - Normal mood and affect. ASSESSMENT 1. 1 cm lesion left upper eyelid in mid aspect by eyebrow. 2. 2 cm painful soft tissue mass right posterior neck by occipital hairline. 3. Former smoker. PLAN Recommend excision of these lesions which can be done under general anesthesia on an outpatient basis. Will send the lesions to pathology for analysis to rule out carcinoma. If carcinoma is present then further excision will be done with skin flap and/or skin graft reconstruction. Additional margin needed for a carcinoma would mean some excision of the adjacent eyebrow which will necessitate advancement eyebrow skin flaps reconstruction. Depending on how much of the skin needs to be removed from the soft tissue mass right posterior neck by occipital hairline due to adherence to the mass will determine if a local skin flap is needed for wound closure reconstruction. Patient was informed of the risks and complications of the procedure including alternatives to surgery. These were discussed with the patient personally. Patient voices understanding and wishes to proceed. Some of the risks and complications were included in a form from the [employer].
[2018-08-16] VITALS (7 sets, daily range): BP systolic 103–128; BP diastolic 79–87; PULSE 48–62; RESP 16; TEMP 36.2–36.8; O2SAT 97–99; BMI 23.7
--- NOTE | 2018-08-16 08:00 | LES_PTH ---
PATIENT: YARY CAVAZOS LOC: [facility] – [place] U#:[id number] AGE/SX: 58/M ROOM: RE08/16/[address]: Dr. Jun Tobias MD : 1960 BED: DIS: 08/16/2018 SPEC #: [id number] RECD: 08/16/18 10:28 STATUS: SANDEEP ERNESTO #: [id number] GAYLE: 08/16/18 08:[address]: Jun Tobias DEPT: SURGICAL PATHOLOGY RECD BY: Tom Mckinney ENTERED: 08/16/18 13:33 SP TYPE: Lesion OTHR DR: Dr. Kendra Antunez MD Tissues: A - Skin of eyelid, NOS B - Skin of neck, NOS Procedures: Surgery Specimen Level III Surgery Specimen Level IV HEADER OPERATION: Excision soft tissue mass right posterior neck, possible skin flap PRE-OP DIAGNOSIS: 1 cm lesion left upper eyelid in mid aspect by eyebrow; 2 cm painful soft tissue mass right posterior neck by occipital hairline TISSUE SUBMITTED: A - Cystic lesion left upper eyelid by eyebrow, B - 2 cm soft tissue mass right posterior neck by occipital hairline MICROSCOPIC DIAGNOSIS A. 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 B. Right posterior neck soft tissue mass by occipital hairline, excisional biopsy: Mature adipose tissue consistent with lipoma. NUNO:katlyn 08/19/18 MICROSCOPIC DESCRIPTION Slides are reviewed. GROSS DESCRIPTION A - Received in fixative is one container labeled with the patient's name and designated cystic lesion left upper eyelid by eyebrow. The specimen consists of a previously bisected piece of upton-white skin with underlying tissue measuring 1 x 0.7 cm and up to 0.7 cm in thickness. The specimen is bisected and submitted entirely in one cassette. B - Received in fixative is one container labeled with the patient's name and designated 2 cm soft tissue mass right posterior neck by occipital hairline. The specimen consists of a piece of skin with underlying tissue. The skin piece measures 2 x 0.6 cm and underlying tissue measures 2 x 2 x 1 cm. The underlying tissue consists of upton-yellow adipose tissue without area of hemorrhage, necrosis or cystic degeneration. The entire specimen is submitted in two cassettes. / NUNO:katlyn 08/16/18 TC:1 CPT: 27125, 76392
[2018-08-16] MEDS: Mupirocin Ointment 22gm Tube 1 APPLIC (10:00)
--- NOTE | 2018-08-16 10:05 | OP.PCM_ITS ---
Report of Operation Date of Procedure: 08/16/18 Pre-Operative Diagnosis: 1. 1 cm lesion left upper eyelid in mid aspect by eyebrow. 2. 2 cm painful soft tissue mass right posterior neck by occipital hairline. 3. Former smoker. Post-Operative Diagnosis: 1. 1 cm cystic lesion left upper eyelid in mid aspect by eyebrow. 2. 2 cm painful soft tissue mass right posterior neck by occipital hairline. 3. Former smoker. Surgery/Procedure Performed:: 1. Excision 1 cm cystic lesion left upper eyelid in mid aspect by eyebrow with medial and lateral advancement flaps reconstruction (6.6 cm2). 2. Excision 2 cm painful soft tissue mass right posterior neck by occipital hairline with 2 cm layered closure. Description of Surgical Findings:: 58 year old man presents with a lesion on his left upper eyelid in the mid aspect by the eyebrow that has been increasing in size over the last several months. He states it is starting to bother his vision because it is in the way. He denies trauma. He denies bleeding. He denies fever. He denies recent infection. He states he had the lesion removed in 2018 and it has since recurred. He thinks he was told it was benign. He also has concerns about a soft tissue mass on his right posterior neck by occipital hairline that has increased in size over the last several months. He denies any recent infection. He denies fever. He denies any bleeding. He denies any trauma. There is some discomfort when he bumps it. Patient was informed of the risks and complications of the procedure including alternatives to surgery. These were discussed with the patient personally. Patient voices understanding and wishes to proceed. Some of the risks and complications were included in a form from the [employer]. 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 Specimen's removed: 1. Cystic lesion left upper eyelid in mid aspect by eyebrow to Pathology. 2. Painful soft tissue mass right posterior neck by occipital hairline to Pathology. Drains: None. Estimated Blood Loss (mL): 5 ml. Description of Procedure: Patient was taken to OR in supine position and was given IV sedation. The face and right posterior neck areas were prepped and draped in the usual fashion. SCD's were placed for DVT prophylaxis. Perioperative antibiotics were given intravenously. The lesion left upper eyelid in mid aspect by eyebrow and the soft tissue mass right posterior neck were infiltrated with xylocaine and epinephrine. After waiting 5 minutes for the anesthetic to take effect, I attempted an intradermal excision of the lesion left upper eyelid because of the concern for carcinoma. However, at the time of the intradermal excision, it was noted it was a cystic lesion and not a solid lesion that may possibly indicate carcinoma. Therefore, instead of a frozen section, I went ahead and excised the cystic lesion into the subcutaneous tissue. It was adherent to the underlying muscle. After excision, it was sent to Pathology for analysis to rule out carcinoma. It was excised with a couple mm margin. I then designed adjacent horizontal skin flaps. I infiltrated the inferior aspect of the eyebrow as I will be making horizontal incisions in the eyebrow hairline. Incisions were made and I elevated skin flaps on a subcutaneous pedicel at the level of the underlying muscle. I advanced both the medial and lateral eyelid flaps into the defect with minimal tension and minimal distortion except for a small bulge inferiorly. I excised this small bulge with a V-excision. Hemostasis was obtained with electrocautery. The wound was irrigated with saline. The wounds were then closed in a layered fashion with 5-0 Monocryl interrupted sutures for the dermis and subcutaneous tissue. The skin was approximated with 5-0 fast absorbing simple interrupted sutures. Antibiotic ointment was applied followed by a small gauze dressing. Patient was able to close his eyelid without difficulty and without distortion. The size of the defect and the size of the flaps required to close the defect was 6.6 cm2. I then made an oblique elliptical incision over the soft tissue mass right posterior neck by the occipital hairline and dissected into the subcutaneous tis victor manuel. A lipomatous mass was seen. It was surrounded by a lot of scar tissue which was excised. The mass extended down to and was adherent to the muscle. Once the lipomatous mass was excised, it was sent to Pathology for analysis to rule out carcinoma. The mass was well encapsulated. Hemostasis was obtained with electrocautery. The wound was irrigated with saline. The mass was 2 cm. The layered closure was 2 cm. Using 4-0 Monocryl figure of eight interrupted sutures, I approximated the deep subcutaneous tissue to close the space and minimizer seroma formation. The deep dermis and subcutaneous tissue was approximated with 4-0 Monocryl interrupted sutures. The skin was approximated with 4-0 Prolene simple interrupted and vertical mattress interrupted sutures. Antibiotic ointment was applied followed by a gauze dressing. Patient tolerated the procedure well and was sent to PACU in satisfactory condition. Patient will be sent home on antibiotics and pain medication. He will keep his head elevated during the initial postop period. Patient will followup in a week for a wound check and for discussion of the pathology report and for removal of the sutures. Grafts/Implants Used: None. - Complications None. - Admit VTE Documentation VTE Present on Admission: No VTE Mechan Device Prophylaxis: SCD's VTE Pharm Prophylaxis ordered?: No Code Visit Surgery Charges CPT - 86086 ICD-10 - D49.2, Z87.891 90670 R22.1, R20.8, Z87.891
--- NOTE | 2018-08-16 10:10 | PCM.DC ---
You will use the following diet at home:: No restrictions Discharge Activity: May not drive while taking narcotic pain medications., May Shower - in two days., - - keep head elevated. no heavy lifting. May shower in (days): 2 May resume sexual activity in: No Restrictions Ice area for (Minutes): 5 - as needed for facial swelling. Weight Bearing Status: Weight bearing as tolerated Lifting Restrictions: 20 lbs. Keep extremity elevated above heart level: - - elevate head. Call your doctor if your incision/area has: Continuous Slow Oozing, Sudden Increased Bleeding, Increased Pain/ Swelling, Increased Redness, Foul Smelling Discharge, Swelling at the incision site Call your doctor if you observe: Fever of 101 or Higher, Coldness, Increased Pain, Shortness of breath, Chest pain, Calf discomfort, Uncontrolled pain Suture Line Care: - - apply antibiotic ointment to suture line daily after operative dressing is removed in two days. Change Dressing in (Days):: 2 - apply antibiotic ointment daily to suture lines. Cleanse incision/area with: - - may get incisions wet in the shower in two days. Allergies/Adverse Reactions: Allergies doxycycline Allergy (Verified 08/16/18 07:04) Rash Medications to take at Discharge furosemide 20 mg tablet 20 mg PO DAILY #30 tab 12/26/17 losartan 25 mg tablet 25 mg PO DAILY #30 tab 12/26/17 nitroglycerin 0.4 mg sublingual tablet 0.4 mg SUBLINGUAL Q5-15M PRN 12/26/17 carvedilol 25 mg tablet 25 mg PO BID #180 tab 06/04/18 Acetaminophen [Tylenol] 500 - 1,000 mg PO Q6H PRN PRN 08/12/18 Clindamycin HCl [Cleocin] 300 mg PO TID #12 cap 08/16/18 Lactobacillus Acidophilus/Fos [Acidophilus Probiotic Tablet] 1 ea PO BID #10 tab 08/16/18 Oxycodone HCl/Acetaminophen [Percocet 5/325] 1 tab PO 4X/DAY PRN PRN 5 Days #20 tab 08/16/18 The following prescriptions were given: Oxycodone HCl/Acetaminophen [Percocet 5/325] 1 tab PO 4X/DAY PRN PRN 5 Days #20 tab PRN Reason: Pain Lactobacillus Acidophilus/Fos [Acidophilus Probiotic Tablet] 1 ea PO BID #10 tab Clindamycin HCl [Cleocin] 300 mg PO TID #12 cap Primary Care Physician: Kendra Antunez MD [Primary Care Provider] - Test Results: Test results from this visit will be discussed in further detail at your follow-up appointment, if applicable. Please Follow Up With: Jun Tobias MD When: one week. call [phone] for appt. Proposed Discharge Date: 08/16/18
--- NOTE | 2018-08-16 10:13 | DCINST_ITS ---
You will use the following diet at home:: No restrictions Discharge Activity: May not drive while taking narcotic pain medications., May Shower - in two days., - - keep head elevated. no heavy lifting. May shower in (days): 2 May resume sexual activity in: No Restrictions Ice area for (Minutes): 5 - as needed for facial swelling. Weight Bearing Status: Weight bearing as tolerated Lifting Restrictions: 20 lbs. Keep extremity elevated above heart level: - - elevate head. Call your doctor if your incision/area has: Continuous Slow Oozing, Sudden Increased Bleeding, Increased Pain/ Swelling, Increased Redness, Foul Smelling Discharge, Swelling at the incision site Call your doctor if you observe: Fever of 101 or Higher, Coldness, Increased Pain, Shortness of breath, Chest pain, Calf discomfort, Uncontrolled pain Suture Line Care: - - apply antibiotic ointment to suture line daily after operative dressing is removed in two days. Change Dressing in (Days):: 2 - apply antibiotic ointment daily to suture lines. Cleanse incision/area with: - - may get incisions wet in the shower in two days. Allergies/Adverse Reactions: Allergies doxycycline Allergy (Verified 08/16/18 07:04) Rash Medications to take at Discharge furosemide 20 mg tablet 20 mg PO DAILY #30 tab 12/26/17 losartan 25 mg tablet 25 mg PO DAILY #30 tab 12/26/17 nitroglycerin 0.4 mg sublingual tablet 0.4 mg SUBLINGUAL Q5-15M PRN 12/26/17 carvedilol 25 mg tablet 25 mg PO BID #180 tab 06/04/18 Acetaminophen [Tylenol] 500 - 1,000 mg PO Q6H PRN PRN 08/12/18 Clindamycin HCl [Cleocin] 300 mg PO TID #12 cap 08/16/18 Lactobacillus Acidophilus/Fos [Acidophilus Probiotic Tablet] 1 ea PO BID #10 tab 08/16/18 Oxycodone HCl/Acetaminophen [Percocet 5/325] 1 tab PO 4X/DAY PRN PRN 5 Days #20 tab 08/16/18 The following prescriptions were given: Oxycodone HCl/Acetaminophen [Percocet 5/325] 1 tab PO 4X/DAY PRN PRN 5 Days #20 tab PRN Reason: Pain Lactobacillus Acidophilus/Fos [Acidophilus Probiotic Tablet] 1 ea PO BID #10 tab Clindamycin HCl [Cleocin] 300 mg PO TID #12 cap Primary Care Physician: Kendra Antunez MD [Primary Care Provider] - Test Results: Test results from this visit will be discussed in further detail at your follow- up appointment, if applicable. Please Follow Up With: Jun Tobias MD When: one week. call [phone] for appt. Proposed Discharge Date: 08/16/18
== END 2018-08-16 10:54 | disposition home or self-care (01) ==
LOC: SDC 06:29 → AC 06:29
PROVIDERS: Family Provider Family Medicine; PCP Family Medicine; Referring Provider Surgery; Visit Provider Surgery
PROC: (CPT 11422; principal; 2018-08-16 07:45)
DX: D23.121 Other benign neoplasm of skin of left upper eyelid, including canthus (principal); D17.0 Benign lipomatous neoplasm of skin and subcutaneous tissue of head, face and neck; I48.91 Unspecified atrial fibrillation; I42.9 Cardiomyopathy, unspecified; I11.0 Hypertensive heart disease with heart failure; I50.21 Acute systolic (congestive) heart failure; J44.9 Chronic obstructive pulmonary disease, unspecified; I25.2 Old myocardial infarction; Z87.891 Personal history of nicotine dependence; Z79.899 Other long term (current) drug therapy
CPT/HCPCS: 11422; 12041; 14060; 88304; 88305; J7120

== ENCOUNTER → 2019-01-15 | Outpatient (CLI) | payer BC, SELFPAY ==
[2018-12-24 15:10] VITALS: BMI 24.1
[2019-01-15 18:19] LABS: Anion Gap 7 (5-15); BUN 17 mg/dL (7-18); Calcium,Total 8.7 mg/dL (8.5-10.1); Chloride 102 mmol/L (98-107); EST Glomerular Filtration Rate 92 mL/min (>60); Est Glom Filt Rate - Afr Amer 112 mL/min (>60); Glucose 82 mg/dL (74-106); Sodium Level 141 mmol/L (136-145)
== END | disposition home or self-care (01) ==
LOC: MFPLAB 16:18
PROVIDERS: Family Provider Family Medicine; PCP Family Medicine; Referring Provider Family Medicine; Visit Provider Family Medicine
DX: I10 Essential (primary) hypertension (principal)
CPT/HCPCS: 36415; 80048

== ENCOUNTER → 2019-01-23 | Outpatient (CLI) | payer BC, SELFPAY ==
[2018-12-24 15:10] VITALS: BMI 24.1
--- NOTE | 2019-01-23 15:20 | CT_ITS ---
STUDY: LOW DOSE CT LUNG CANCER SCREENING REASON FOR EXAM: Male, 58 years old. Lung screening RADIATION DOSAGE (If Supplied By Facility): CTDIvol = ( 2.55 ) mGy, DLP = ( 94.74 ) mGycm TECHNIQUE: No contrast was administered. Low dose technique was utilized (average mAS-38 and kVp 120). 1.25 mm axial source images with a slice interval of 1.25-mm were reconstructed in lung windows. 2.5 mm axial source images with a slice interval of 2.5-mm were reconstructed in lung windows. 5.0 mm axial source images with a slice interval of 5.0-mm were reconstructed in soft tissue windows. Nodule measured using lung windows on PACS and/or independent workstation with automated measurement of minimum and maximum diameter. Nodule measurement reported as average diameter rounded to the nearest whole number. Growth is defined as an increase ins size of greater than 1.5 mm. COMPARISON: None. NODULES: Total lung nodules (excluding granulomas): 0 Emphysema: Mild Endobronchial lesion: None Aorta: Normal Coronary arteries: Minimal calcifications. Heart: Normal Pulmonary artery: Normal Mediastinal nodes: Normal Other chest and abdominal findings: None significant CT/Low Dose CT Lung Screening IMPRESSION: Mild emphysema. No significant pulmonary nodules or masses. Lung Rads 1. IMPORTANT NOTES FOR USE: ACR Lung-RADS Version 1.0 Assessment Categories Release Date: August 11, 2013 Category: Coded 0-4 bases on nodule(s) with highest degree of suspicion. Negative screen is defined as categories 1 and 2; a positive screen is defined as categories 3 and 4. Category 3 and 4A nodules that are unchanged on interval CT should be coded as category 2, and individuals returned to screening in 12 months. Category 4X: Category 3 or 4 nodules with additional imaging findings that increase the suspicion of lung cancer, such as spiculation, GGN that doubles in size in 1 year, enlarged lymph notes, etc. Category Modifiers: S (significant finding unrelated to lung cancer) and C (prior history of treated lung cancer) may be added to the 0-4 Lung-RADS Electronically Signed: Prabhjot Osei, at 16:04 EDT Tel , Service support ,
== END | disposition home or self-care (01) ==
LOC: CT 15:18
PROVIDERS: Family Provider Family Medicine; PCP Family Medicine; Referring Provider Family Medicine; Visit Provider Family Medicine
DX: J44.9 Chronic obstructive pulmonary disease, unspecified (principal); Z12.2 Encounter for screening for malignant neoplasm of respiratory organs
CPT/HCPCS: G0297

== ENCOUNTER 2019-06-26 11:11 | Observation (INO) | payer BC, SELFPAY ==
[2018-12-24 15:10] VITALS: BMI 24.1
[2019-06-26] VITALS (12 sets, daily range): BP systolic 116–148; BP diastolic 80–95; PULSE 46–70; RESP 14–17; TEMP 36.6–36.9; O2SAT 94–98; BMI 25.2; BMI 24.9
--- NOTE | 2019-06-26 11:12 | EKG12_ITS ---
Test Reason : WEAKNESS Blood Pressure : / mmHG Vent. Rate : 057 BPM Atrial Rate : 057 BPM P-R Int : 160 ms QRS Dur : 090 ms QT Int : 446 ms P-R-T Axes : 074 048 059 degrees QTc Int : 434 ms Sinus bradycardia Low voltage QRS Borderline ECG Confirmed by KALIE YOUNGER, LAZARO ([id number]), editor in chief newspaper QUINTON BREWSTER ([id number]) on 06/27/2019 1:07:28 PM Referred By: SHANNON Confirmed By:HATTIE JADE MD
--- NOTE | 2019-06-26 11:12 | CT_ITS ---
STUDY: CT BRAIN WITHOUT CONTRAST REASON FOR EXAM: Male, 59 years old. WEAKNESS RADIATION DOSAGE (If Supplied By Facility): CTDIvol = ( 44.99 ) mGy, DLP = ( 796.11 ) mGycm TECHNIQUE: Transaxial CT imaging of the brain was performed without administration of intravenous contrast material. Individualized dose optimization techniques were used for this CT. COMPARISON: No relevant priors. FINDINGS: Normal soft tissue structures. Normal calvarium. Normal size ventricles and extra-axial spaces for the patient''s age. There are areas of decreased attenuation within the white matter tracts of the supratentorial brain, consistent with microvascular disease changes. Normal basal ganglia and thalami. Normal brainstem. Normal cerebellum. There is no intracranial hemorrhage. There are no findings of an acute ischemic infarction. Normal visualized paranasal sinuses. CT/Brain/Head without Contrast IMPRESSION: No acute intracranial pathology Electronically Signed: Rajesh Dominguez, at 12:24 EDT Tel , Service support ,
--- NOTE | 2019-06-26 11:14 | ED.VIS.GEN ---
History of Present Illness Chief Complaint: Weakness Informant: Patient Onset: Today Context: Gradual Onset Timing: Intermittent Current Severity: Moderate Maximum Severity: Moderate Narrative: The patient is a 59-year-old male with medical history significant for viral cardiomyopathy that presents to the emergency department with dizziness and arm pain. The patient states he woke in his normal state of health. He states that he felt unsteady on his feet. He went to work and was feeling mildly dizzy. He states he took his blood pressure and it was normal. He states shortly thereafter, the dizziness came back. He is unsure if it is incited by motion. He states he also had some pain in his left arm and under his left chest. He does not he is never had pain like this before. He denies any fevers or chills. He has had a scant nonproductive cough. He denies any recent falls or trauma. Prior similar symptoms: No Recent Illness/Hospitalization: No Past Medical History - Allergies and Home Meds Allergies/Adverse Reactions: Allergies doxycycline Allergy (Verified 06/26/19 11:12) Rash Primary Care Physician: Kendra Antunez MD [Primary Care Provider] - Prior records reviewed: Yes Past Medical History: - - Viral cardiomyopathy Surgical History: herniorrhaphy, - Smoking Status: Former smoker - Family History Maternal Family History: Family History (Last Reviewed 12/24/18 @ 15:43 by BERNIE Bowen) Father Heart disease Myocardial infarction Hypertension Uncle Heart disease Myocardial infarction Mother Hypertension Asthma Breast cancer Diabetes Family History: Reports: Asthma, Hypertension Paternal Family History: Family History (Last Reviewed 12/24/18 @ 15:43 by BERNIE Bowen) Father Heart disease Myocardial infarction Hypertension Uncle Heart disease Myocardial infarction Mother Hypertension Asthma Breast cancer Diabetes Family History: Reports: Heart Disease, Hypertension - Father w/ history of DE 60-61. Notes his paternal uncles w/ history of early DE also. Review of Systems General: Denies: Chills, Fever, Sweats Eyes: Denies: Visual changes - bilaterally, Diplopia ENT: Denies: Rhinorrhea, Sore throat Cardiovascular: Reports: Chest pain. Denies: Palpitations Respiratory: Denies: Dyspnea, Cough, Dyspnea on exertion Gastrointestinal: Reports: Nausea. Denies: Abdominal pain, Vomiting, Diarrhea, Melena, Hematochezia Genitourinary: Denies: Dysuria, Hematuria, Frequency Musculoskeletal: Denies: Back pain, Extremity Pain Skin: Denies: Rash, Wounds Neurological: Reports: Numbness. Denies: Headache, Weakness Physical Exam Inital Vital Signs reviewed: Yes General: Well nourished, Well developed, No Acute Distress Head: Normocephalic, Atraumatic Eyes: Perrl, EOMI ENT: Moist mucous membranes, No rhinorrhea Neck: Supple, Nontender Cardiovascular: Regular rate, Regular rhythm, No murmurs Respiratory: No distress, CTA bilaterally, Chest nontender Abdomen: Soft, Nontender, Nondistended, Normal bowel sounds Back: Nontender, Normal Inspection Extremities: Nontender, No edema Skin: Normal color, No rash Neurological: Alert, Oriented x3, Cranial nerves II-XII grossly intact, Normal Strength, Normal Sensation Psychological: Normal affect, Normal Mood Diagnostic/Tx/Re-eval Clinical Impression(s) from Imaging Studies Brain CT 06/26/19 11:12 IMPRESSION: No acute intracranial pathology Electronically Signed: Rajesh Dominguez, at 12:24 EDT Tel , Service support , Chest X-Ray 06/26/19 11:25 IMPRESSION: Hyperinflation. No acute abnormality is seen. Electronically Signed: Tanmay Zheng, at 13:30 EDT , Service support , Head/Neck CTA 06/26/19 12:16 IMPRESSION: Normal CTA Head and neck with contrast. Electronically Signed: Rajesh Dominguez, at 13:42 EDT Tel , Service support , Abnormal Lab Results 06/26/19 06/26/19 06/26/19 11:26 11:26 13:21 WBC 6.1 RBC 4.60 Hgb 13.7 Hct 41.7 MCV 90.7 MCH 29.8 MCHC 32.9 RDW Std Deviation 42.7 RDW Coeff of Sanjuanita 13.0 Plt Count 242 MPV 10.4 Immature Gran % (Auto) 0.200 Neut % (Auto) 57.7 Lymph % (Auto) 28.3 Mcleod % (Auto) 9.2 Eos % (Auto) 3.6 Baso % (Auto) 1.0 Absolute Neuts (auto) 3.5 Absolute Lymphs (auto) 1.72 Nucleated RBC % 0 Sodium 139 Potassium 4.0 Chloride 105 Carbon Dioxide 29.0 Anion Gap 5 BUN 11 Creatinine 0.80 Estim Creat Clear Calc 104.58 Est GFR (MDRD) Af Amer 126 Est GFR (MDRD) Non-Af 105 BUN/Creatinine Ratio 13.7 Glucose 91 Calcium 8.1 L Total Bilirubin 0.30 AST 14 L ALT 30 Alkaline Phosphatase 55 Troponin I < 0.015 Total Protein 6.7 Albumin 3.5 Globulin 3.2 Albumin/Globulin Ratio 1.1 Urine Color Yellow Urine Clarity Sl. Cloudy Urine pH 6.0 Ur Specific [place] 1.015 Urine Protein Negative Urine Glucose (UA) Normal Urine Ketones Negative Urine Occult Blood Negative Urine Nitrite Negative Urine Bilirubin Negative Urine Urobilinogen Normal Ur Leukocyte Esterase Negative Urine RBC 0-5 SEEN Urine WBC 0 SEEN Ur Squamous Epith Cells 0-5 SEEN Urine Bacteria 0 SEEN Urine Mucus 0 SEEN - Medical Decision Making The patient presents with new onset ataxia. He does have a remote history of paroxysmal atrial fibrillation but is off anticoagulants. He has a history of viral cardiomyopathy with diminished ejection fraction. His NIH is 0 as he has no appreciable ataxia on exam while sitting, when the patient ambulates he does stumble mildly to the left. Metabolic work-up was pursued. EKG demonstrates low voltage but no acute ischemia. Labs are unremarkable. Noncontrast head CT is negative for acute process. With a new ataxia and mild pain in his neck, I did obtain a CTA. This was also negative for acute process. However, given the patient's age and multiple risk factors I do feel that he would benefit from observation for MRI and neurologic work-up. I do feel that he may benefit from echo given his symptoms. This was discussed with the hospitalist who agrees with plan of care. Impression 1. Ataxia ED Disposition - Plan for ED Patient: Referrals: Kendra Antunez MD [Primary Care Provider] -
--- NOTE | 2019-06-26 11:25 | RAD_ITS ---
STUDY: X-RAY CHEST REASON FOR EXAM: Male, 59 years old. PT ARRIVES WITH WEAKNESS THAT CAUSES HIM TO LEAN TO HIS LEFT OCCASIONALLY. PAIN RADIATING DOWN LEFT ARM STARTING IN HIS LEFT TRAPEZIUS TECHNIQUE: Single AP portable view of the chest. COMPARISON: Comparison is made with prior examination of December 25, 2017. FINDINGS: EKG electrodes are seen. Hyperinflation. Scattered calcified granulomas. There is no demonstrated pleural abnormality. Normal size heart. Normal mediastinum and rudi. Normal visualized pulmonary arteries. There is atherosclerotic tortuosity of the aortic arch and descending thoracic aorta. There are diffuse degenerative changes of the visualized thoracic spine. Normal visualized ribs, clavicles, and shoulders. There is no demonstrated abnormality of the visualized soft tissue structures of the upper abdomen. RAD/Chest 1 View (Portable) IMPRESSION: Hyperinflation. No acute abnormality is seen. Electronically Signed: Tanmay Zheng, at 13:30 EDT , Service support ,
[2019-06-26 11:32] LABS: Absolute Lymphocyte Count 1.72 X10^3/uL (0.83-4.51); Absolute Neutrophil Count 3.5 X10^3/uL (2.0-7.7); Basophil# 0.06 X10^3/uL; Eosinophil# 0.22 X10^3/uL; Eosinophils% 3.6 % (0-5); Hematocrit 41.7 % (40-54); Hemoglobin 13.7 g/dL (13.0-16.5); Lymphocyte # 1.72 X10^3/ul (4.0); Lymphocyte % 28.3 % (19-41); Mean Corp Hgb Conc 32.9 g/dL (32-36); Mean Corpuscular Hgb 29.8 pg (27.0-32.0); Mean Corpuscular Volume 90.7 fL (80-94); Mean Platelet Vol. 10.4 fl (6.2-12.0); Monocyte# 0.56 X10^3/uL; Monocyte% 9.2 % (0-10); NRBC Flagged by Analyzer 0 % (0-5); Neutrophil # 3.51 X10^3/uL (2.7-7.7); Neutrophil % 57.7 % (47-70); Platelet Count 242 K/mm3 (150-450); RBC Distribution Width SD 42.7 fl (35.1-43.9); White Blood Count 6.1 K/mm3 (4.4-11.0)
[2019-06-26 11:50] LABS: ALB/GLOB Ratio 1.1 RATIO (0.9-2.4); AST(SGOT) 14 U/L (15-37); Alanine Aminotransfer ALT/SGPT 30 U/L (16-61); Albumin, Serum 3.5 g/dL (3.2-5.0); Alkaline Phosphatase 55 U/L (45-117); Anion Gap 5 (5-15); BUN 11 mg/dL (7-18); BUN/Creat Ratio 13.7 RATIO (10-20); Calcium,Total 8.1 mg/dL (8.5-10.1); Chloride 105 mmol/L (98-107); EST Glomerular Filtration Rate 105 mL/min (>60); Est Glom Filt Rate - Afr Amer 126 mL/min (>60); Estimated Creatinine Clearance 104.58 ml/min; Globulin 3.2 g/dL (2.2-4.2); Glucose 91 mg/dL (74-106); Protein, Total 6.7 g/dL (6.4-8.2); Sodium Level 139 mmol/L (136-145)
--- NOTE | 2019-06-26 12:16 | CT_ITS ---
STUDY: CTA HEAD AND NECK WITH CONTRAST REASON FOR EXAM: Male, 59 years old. ATAXIA, WEAKNESS, PAIN DOWN LEFT ARM RADIATION DOSAGE (If Supplied By Facility): CTDIvol = ( 24.30 ) mGy, DLP = ( 779.13 ) mGycm TECHNIQUE: CT angiography was performed with a multi-detector CT scanner. Data acquisition was obtained from the skull base through the vertex following intravenous administration of IV 100mL [id number]-370. MIP images were reconstructed from the axial data set. Post-processing of the angiographic images was performed, with multiplanar reformation and 3D reconstruction. Individualized dose optimization techniques were used for this CT. COMPARISON: No relevant priors. FINDINGS: Normal bilateral petrous carotid arteries. Normal right cavernous carotid artery with a normal supraclinoid bifurcation. Normal left cavernous carotid artery with a normal supraclinoid bifurcation. Normal right A1 segments of the anterior cerebral artery. Normal left A1 segments of the anterior cerebral artery. Normal intact anterior communicating artery (ACOM). Normal bilateral A2 segments of the anterior cerebral arteries. Normal right M1 and M2 segments of the middle cerebral arteries, with a normal M1 bifurcation. Normal left M1 and M2 segments of the middle cerebral arteries, with a normal M1 bifurcation. Normal right posterior communicating artery (PCOM). Normal left posterior communicating artery (PCOM). Normal bilateral vertebral arteries. Normal basilar artery with a normal basilar bifurcation. The visualized bilateral superior cerebellar (SCA) arteries are normal. Normal bilateral P1, P2 and visualized P3 segments of the posterior cerebral arteries. There is no demonstrated aneurysm of the mentasta of [place]. There is no demonstrated abnormality of the visualized brain. AORTIC ARCH: Normal visualized aortic arch. Normal origins of the brachiocephalic, left common carotid, and left subclavian arteries. RIGHT CAROTID ARTERIES: Normal right common carotid artery (CCA). Normal right common carotid bulb. Normal origin of the right internal carotid (ICA) artery without a hemodynamically significant stenosis. Normal visualized cervical portion of the right internal carotid artery. Normal origin of the right external carotid artery (ECA). LEFT CAROTID ARTERIES: Normal left common carotid artery (CCA). Normal left common carotid bulb. Normal origin of the left internal carotid (ICA) artery without a hemodynamically significant stenosis. Normal visualized cervical portion of the left internal carotid artery. Normal origin of the left external carotid artery (ECA). VERTEBRAL ARTERIES: Normal bilateral vertebral arteries. Mild centrilobular emphysema. 9 mm posterior left thyroid lobe nodule. There is reversal of the cervical lordosis. Multilevel degenerative disc disease. CT/CTA Head AND Neck W/ Contrast IMPRESSION: Normal CTA Head and neck with contrast. Electronically Signed: Rajesh Dominguez, at 13:42 EDT Tel , Service support ,
[2019-06-26 13:29] LABS: Bacteria 0 SEEN /hpf (None Seen); Mucous, Urine 0 SEEN /hpf (<or=2+); White Blood Cells 0 SEEN /hpf (0-5)
[2019-06-26 13:35] LABS: Color, Urine Yellow (Yellow); Glucose, Dipstick Normal (Normal); Ketone-Dipstick Negative (Negative); Leukocyte Esterase-Dipstick Negative /ul (Negative); Nitrite-Dipstick Negative (Negative); Occult Blood-Urine Negative /ul (Negative); Protein-Dipstick Negative (Negative); Specific Gravity, Urine 1.015 (1.002-1.030); Urine Bilirubin Dipstick Negative (Negative); Urine Clarity Sl. Cloudy (Clear); Urine Urobilinogen Normal (Normal)
[2019-06-26 13:53] LABS: Red Blood Cells-Urine 0-5 SEEN /hpf (0-5); Squamous Epithelial Cells - UA 0-5 SEEN /hpf (0-5)
--- NOTE | 2019-06-26 14:12 | HP.PCM_ITS ---
Problem List (1) Pilomatrixoma of eyelid Status: Chronic Comment: 1 cm pilomatrixoma left upper eyelid mid aspect adjacent to eyebrow (2) Lipoma of neck Status: Chronic Comment: 2 cm painful lipoma right posterior neck by occipital hairline (3) Former smoker Status: Chronic (4) Neoplasm of skin of eyelid Status: Chronic Comment: 1 cm lesion left upper eyelid mid aspect adjacent to eyebrow (5) Dysesthesia Status: Chronic Comment: right posterior neck by occipital hairline (6) Mass of right side of neck Status: Chronic Comment: 2 cm painful mass right posterior neck by occipital hairline (7) Dyspnea on exertion Status: Acute (8) Hypertension Status: Chronic Qualifiers: Hypertension type: essential hypertension Qualified Code(s): I10 - Essential (primary) hypertension (9) New onset atrial fibrillation Status: Chronic (10) Non-ischemic cardiomyopathy Status: Chronic (11) Acute systolic CHF (congestive heart failure) Status: Resolved (12) Nicotine dependence Status: Chronic (13) Atrial fibrillation with RVR Status: Resolved (14) Non-STEMI (non-ST elevated myocardial infarction) Status: Resolved (15) Disequilibrium Status: Acute History of Present Illness Date of Admission: 06/26/19 Chief Complaint: Loss of balance today The patient is a 59 year old M with 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 The symptoms la sted about 2 to 3 hours. This started with left axilla pain which radiated to left arm and fingers and then back to the neck. He denies any shortness of breath, palpitation, near syncope or syncope. At same time he felt he could not walk straight and leaning on the left side. He denies flulike illness last 2 to 3 weeks including fever chills, denies new urinary tract symptoms including burning micturition In ED, vital signs stable. Orthostatic vitals were negative for postural hypotension. Head CT was done negative for acute intracranial abnormality. CT head and neck was reported as normal EKG sinus bradycardia at 51 bpm. QTc 439 ms. EMS EKG was similar normal sinus rhythm at [address]-T abnormality. First troponin negative Clinical Impression(s) from Imaging Studies Brain CT 06/26/19 11:12 IMPRESSION: No acute intracranial pathology Chest X-Ray 06/26/19 11:25 IMPRESSION: Hyperinflation. No acute abnormality is seen. Head/Neck CTA 06/26/19 12:16 IMPRESSION: Normal CTA Head and neck with contrast. Past Medical History Past Medical History (Chronic Problems): Chronic Problems (Last Updated 12/24/18 @ 15:43 by BERNIE Bowen) Pilomatrixoma of eyelid (Chronic) 1 cm pilomatrixoma left upper eyelid mid aspect adjacent to eyebrow Lipoma of neck (Chronic) 2 cm painful lipoma right posterior neck by occipital hairline Former smoker (Chronic) Neoplasm of skin of eyelid (Chronic) 1 cm lesion left upper eyelid mid aspect adjacent to eyebrow Dysesthesia (Chronic) right posterior neck by occipital hairline Mass of right side of neck (Chronic) 2 cm painful mass right posterior neck by occipital hairline Hypertension (Chronic) New onset atrial fibrillation (Chronic 12/05/17) Non-ischemic cardiomyopathy (Chronic) Nicotine dependence (Chronic) Medical History: Medical History (Last Updated 12/24/18 @ 15:43 by BERNIE Bowen) New onset atrial fibrillation (Chronic) Onset Date: 12/05/17 I48.91 Non-ischemic cardiomyopathy (Chronic) I42.8 Acute systolic CHF (congestive heart failure) (Resolved) I50.21 Nicotine dependence (Chronic) F17.200 Atrial fibrillation with RVR (Resolved) Onset Date: 12/05/17 I48.91 Non-STEMI (non-ST elevated myocardial infarction) (Resolved) I21.4 COPD (chronic obstructive pulmonary disease) J44.9 Fatty liver K76.0 Psoriasiform eczema L30.8 Psoriasis L40.9 Allergies doxycycline Allergy (Verified 06/26/19 11:12) Rash Home Medications: Ambulatory Orders Medication Instructions Recorded carvedilol 25 mg tablet 25 mg PO BID #180 tab 12/24/18 furosemide 20 mg tablet 20 mg PO DAILY #90 tab 12/24/18 Losartan Potassium [Cozaar] 25 mg PO DAILY 06/26/19 Surgical History: Surgical History (Last Reviewed 12/24/18 @ 15:43 by BERNIE Bowen) History of eye surgery Z98.890 History of herniorrhaphy Z98.890, Z87.19 History of right and left heart catheterization Onset Date: 12/07/17 Z98.890 normal coronary angiography @ [facility] 12/07/17 Surgical History: herniorrhaphy, - Psychiatric History: No pertinent psych hx Smoking Status: Former smoker Tobacco Use: Cigarettes - *Family History Maternal Family History: Family History (Last Reviewed 12/24/18 @ 15:43 by BERNIE Bowen) Father Heart disease Myocardial infarction Hypertension Uncle Heart disease Myocardial infarction Mother Hypertension Asthma Breast cancer Diabetes History Items: Asthma, Hypertension Paternal Family History: Family History (Last Reviewed 12/24/18 @ 15:43 by BERNIE Bowen) Father Heart disease Myocardial infarction Hypertension Uncle Heart disease Myocardial infarction Mother Hypertension Asthma Breast cancer Diabetes History Items: Heart Disease, Hypertension - Father w/ history of PA 60-61. Notes his paternal uncles w/ history of early PA also. Review of Systems Constitutional: Denies: Chills, Fever, Weight Change HEENT: Denies: Head Aches, Sinus Congestion, Sinus Drainage Cardiovascular: Reports: - - Left axilla and arm pain. Denies: Chest Pain, Palpitations Respiratory: Denies: Cough, Shortness of breath at rest, Sputum production Gastrointestinal: Denies: Abdominal Pain, Nausea, Vomiting Genitourinary: Denies: Dysuria Musculoskeletal: Reports: Arm Pain. Denies: Joint Pain, Joint Tenderness Skin: Denies: Rash, Wounds Neurological: Reports: Balance problems, Incoordination, Numbness - Some numbness and tingling in the left hand and finger, Tingling. Denies: Blurred vision, Double vision, Change in Speech, Slurred speech, Confusion, Difficulty swallowing, Focal weakness, Headaches Psychiatric: Denies: Anxiety, Depression, Homicidal Ideations, Suicidal Ideations Hematologic/ Lymphatic: Denies: Easy Bruising, Easy Bleeding VTE Information - Inpt Only VTE Present on Admission: No VTE Mechan Device Prophylaxis: None VTE Pharm Prophylaxis ordered?: Yes Patient Problems: Active and Suspected Problems (Last Updated 12/24/18 @ 15:43 by BERNIE Bowen) Disequilibrium (Acute) - Physical Exam Vitals/I&O's: Vital Signs Temp Pulse Resp BP Pulse Ox 98.3 F 53 L 16 116/80 98 06/26/19 11:12 06/26/19 13:35 06/26/19 13:35 06/26/19 12:10 06/26/19 13:35 Oxygen Delivery Method Room Air Weight: 180 lb 12.465 oz Body Mass Index (BMI) 25.2 Intake and Output for Last 24 Hours 06/24/19 06/25/19 06/26/19 23:59 23:59 23:59 Intake Total 500 / 500 Balance 500 / 500 General: Alert, Oriented x3, Cooperative HEENT: Atraumatic, PERRLA, EOMI, Normocephalic Neck: Supple, No JVD, Negative Carotid Bruits Lungs: Clear to auscultation, Normal air movement, No rhonchi, No wheeze, No rales Cardiovascular: Regular rate, Regular Rhythm, Normal S1, Normal S2, No murmurs, - - Low intensity heart sounds Abdomen: Bowel Sounds Present, Soft, Non Tender, Non-Distended Extremities: No edema, Capillary Refill Less than 3 Seconds Skin: No rashes, No breakdown Musculoskeletal: No Tenderness to Palpation of Joints or Extremities, Arthritic Changes Lymphatic: No Cervical, Supraclavicular, or Inguinal Adenopathy Neurological: Cranial nerves II-XII grossly intact, Deep Tendon Reflexes 2+/4 and Symmetrical, Neuro grossly intact, Motor Exam 5/5 strength throughout, - - NIH stroke scale 0. Cerebellar signs including [id number] test, heel fernandes test, dysdiadochokinesia are negative Psych/Mental Status: Normal Affect, Appropriate Laboratory Results 06/26/19 11:26: WBC 6.1, RBC 4.60, Hgb 13.7, Hct 41.7, MCV 90.7, MCH 29.8, MCHC 32.9, RDW Std Deviation 42.7, RDW Coeff of Sanjuanita 13.0, Plt Count 242, MPV 10.4, Immature Gran % (Auto) 0.200, Neut % (Auto) 57.7, Lymph % (Auto) 28.3, Vernon % (Auto) 9.2, Eos % (Auto) 3.6, Baso % (Auto) 1.0, Absolute Neuts (auto) 3.5, Absolute Lymphs (auto) 1.72, Nucleated RBC % 0 06/26/19 11:26: Sodium 139, Potassium 4.0, Chloride 105, Carbon Dioxide 29.0, Anion Gap 5, BUN 11, Creatinine 0.80, Estim Creat Clear Calc 104.58, Est GFR (MDRD) Af Amer 126, Est GFR (MDRD) Non-Af 105, BUN/Creatinine Ratio 13.7, Glucose 91, Calcium 8.1 L, Total Bilirubin 0.30, AST 14 L, ALT 30, Alkaline Phosphatase 55, Troponin I < 0.015, Total Protein 6.7, Albumin 3.5, Globulin 3.2, Albumin/Globulin Ratio 1.1 06/26/19 13:21: Urine Color Yellow, Urine Clarity Sl. Cloudy, Urine pH 6.0, Ur Specific [place] 1.015, Urine Protein Negative, Urine Glucose (UA) Normal, Urine Ketones Negative, Urine Occult Blood Negative, Urine Nitrite Negative, Urine Bilirubin Negative, Urine Urobilinogen Normal, Ur Leukocyte Esterase Negative, Urine RBC 0-5 SEEN, Urine WBC 0 SEEN, Ur Squamous Epith Cells 0-5 SEEN, Urine Bacteria 0 SEEN, Urine Mucus 0 SEEN Assessment/Plan All Active Problems (Last Updated 12/24/18 @ 15:43 by BERNIE Bowen) Disequilibrium (Acute) Dyspnea on exertion (Acute) Acute systolic CHF (congestive heart failure) (Resolved) Atrial fibrillation with RVR (Resolved 12/05/17) Non-STEMI (non-ST elevated myocardial infarction) (Resolved) The patient is a 59 year old M with 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 The symptoms lasted about 2 to 3 hours. This started with left axilla pain which radiated to left arm and fingers and then back to the neck. He denies any shortness of breath, palpitation, near syncope or syncope. At same time he felt he could not walk straight and leaning on the left side. He denies flulike illness last 2 to 3 weeks including fever chills, denies new urinary tract symptoms including burning micturition In ED, vital signs stable. Orthostatic vitals were negative for postural hypotension. Head CT was done negative for acute intracranial abnormality. CT head and neck was reported as normal EKG sinus bradycardia at 51 bpm. QTc 439 ms. EMS EKG was similar normal sinus rhythm at [address]-T abnormality. First troponin negative. 1. Transient disequilibrium possible TIA rule out acute stroke: Patient does not have history of previous TIA or stroke. Being admitted in PCU. MRI brain and 2D echo ordered. Repeat 1 more troponin to rule out acute coronary syndrome although this is very unlikely with normal first troponin and EKG and heart cath in 2018 which was negative. Patient got aspirin 81 mg in ER and is continued. 2. Viral myocarditis, chronic systolic heart failure, nonischemic cardiomyopathy: It had echo in May 2018 as recorded below follows Dr. vargas. Normal left ventricle. The estimated ejection fraction is 35 %. Stage 1 diastolic dysfunction. Mild tricuspid valve insufficiency. Compared to previous study, the left ventricular systolic function has improved. 3. Hypertension, paroxysmal A. fib, former smoker: Blood pressure is 116/80. Continue home medications. Patient on losartan, Lasix and Coreg. Patient not on anticoagulant agent. Currently in sinus rhythm. Advance directive/living will/CODE STATUS: Patient does not have living will or advanced directive at home. When asked directly about different code situations, he wants to be resuscitated but does not want to be in the vegetable condition for long time. Patient does want artificial life support including intubation, tube feed, ventilator and/chest compression, CVC and vasopressor if needed and DC shock. Code. Total time spent in [id number] encounter in discussion of advanced directive 16 minutes. Laboratory Results 06/26/19 11:26: WBC 6.1, RBC 4.60, Hgb 13.7, Hct 41.7, MCV 90.7, MCH 29.8, MCHC 32.9, RDW Std Deviation 42.7, RDW Coeff of Sanjuanita 13.0, Plt Count 242, MPV 10.4, Immature Gran % (Auto) 0.200, Neut % (Auto) 57.7, Lymph % (Auto) 28.3, Vernon % (Auto) 9.2, Eos % (Auto) 3.6, Baso % (Auto) 1.0, Absolute Neuts (auto) 3.5, Absolute Lymphs (auto) 1.72, Nucleated RBC % 0 06/26/19 11:26: Sodium 139, Potassium 4.0, Chloride 105, Carbon Dioxide 29.0, Anion Gap 5, BUN 11, Creatinine 0.80, Estim Creat Clear Calc 104.58, Est GFR (MDRD) Af Amer 126, Est GFR (MDRD) Non-Af 105, BUN/Creatinine Ratio 13.7, Glucose 91, Calcium 8.1 L, Total Bilirubin 0.30, AST 14 L, ALT 30, Alkaline Phosphatase 55, Troponin I < 0.015, Total Protein 6.7, Albumin 3.5, Globulin 3.2, Albumin/Globulin Ratio 1.1 06/26/19 13:21: Urine Color Yellow, Urine Clarity Sl. Cloudy, Urine pH 6.0, Ur Specific [place] 1.015, Urine Protein Negative, Urine Glucose (UA) Normal, Urine Ketones Negative, Urine Occult Blood Negative, Urine Nitrite Negative, Urine Bilirubin Negative, Urine Urobilinogen Normal, Ur Leukocyte Esterase Negative, Urine RBC 0-5 SEEN, Urine WBC 0 SEEN, Ur Squamous Epith Cells 0-5 SEEN, Urine Bacteria 0 SEEN, Urine Mucus 0 SEEN Clinical Impression(s) from Imaging Studies Brain CT 06/26/19 11:12 IMPRESSION: No acute intracranial pathology Chest X-Ray 06/26/19 11:25 IMPRESSION: Hyperinflation. No acute abnormality is seen. Head/Neck CTA 06/26/19 12:16 IMPRESSION: Normal CTA Head and neck with contrast. OBSV E&M: 70739 Initial observation care L3 Procedures: 41983 Advncd Care Plan 30 Min
--- NOTE | 2019-06-26 15:58 | ECHOCS_ITS ---
Version 2 Reason For Study: TIA/CVA Procedure This was a 2D Doppler, Color Flow transthoracic echocardiogram. The study was technically difficult. Contrast injection was performed. Exam performed portable in patient room. Left Ventricle Normal LV size. The estimated ejection fraction is 55 %. No evidence for diastolic dysfunction. No regional wall motion abnormalities noted. Right Ventricle Normal RV size. Normal systolic function. Atria Normal left atrium. Normal right atrium. No doppler evidence for ASD. Mitral Valve There is no mitral valve stenosis. No mitral valve insufficiency. Tricuspid Valve There is no tricuspid stenosis. Trivial tricuspid valve insufficiency. Pulmonary artery systolic pressure is 35 mmHg. Aortic Valve Trisinus/trileaflet aortic valve. There is no aortic stenosis. No aortic valve insufficiency. Pulmonic Valve There is no pulmonic valvular stenosis. No pulmonic valve insufficiency. Great Vessels Normal aortic root. Pericardium/Pleural No pericardial effusion. Medication Diluted definity 2ml given slow IV push to enhance endocardial definition. Performed a rapid injection of agitated mix of 9 cc saline and 1cc air to assess for atrial septal defect. MMode/2D Measurements & Calculations LVIDd: 5.2 cm IVSd: 1.2 cm Ao root diam: 3.9 cm LVIDs: 3.2 cm LVPWd: 0.96 cm LA dimension: 3.8 cm RVDd: 3.8 cm FS: 38.2 % LAV(MOD-bp): 55.9 ml LA A4 area: 20.6 cm2 RA A4 area: 16.0 cm2 LAV(MOD-bp) Indexed: 27.7 ml/m2 LAV(MOD-sp2): 51.1 ml LAV(MOD-sp4): 56.6 ml Time Measurements MV dec time: 0.20 sec Doppler Measurements & Calculations MV E max frank: 70.9 cm/sec Lat Peak E' Frank: 9.6 cm/sec Med Peak E' Frank: 12.5 cm/sec MV A max frank: 87.8 cm/sec E/E' lat: 7.4 E/E' med: 5.7 MV E/A: 0.81 MV V2 max: 104.2 cm/sec MV P1/2t max frank: 85.3 cm/sec Ao V2 max: 140.6 cm/sec MV max P.3 mmHg MV P1/2t: 59.0 msec Ao max P.9 mmHg MV V2 mean: 59.7 cm/sec MV dec slope: 423.4 cm/sec2 MV mean P.7 mmHg MV V2 VTI: 24.3 cm MVA(P1/2t): 3.7 cm2 LV V1 max: 98.8 cm/sec PA V2 max: 87.6 cm/sec TR max frank: 277.1 cm/sec LV V1 max P.9 mmHg TR max P.7 mmHg Interpretation Summary The estimated ejection fraction is 55 %. No evidence for diastolic dysfunction. Trivial tricuspid valve insufficiency. The study was technically difficult. Contrast injection was performed. Ordering Physician: Mendoza Mes[place] Referring Physician: Kendra Antunez M.D. Performed By: Luis Lewis RCS
--- NOTE | 2019-06-26 15:58 | MRI_ITS ---
STUDY: MRI BRAIN WITHOUT CONTRAST REASON FOR EXAM: Male, 59 years old. L SIDED WEAKNESS THIS AM TECHNIQUE: Standardized multiplanar fat and water weighted pulse sequences were obtained. COMPARISON: None. FINDINGS: There is mild cerebral atrophy with widening of the extra-axial spaces and ventricular dilatation. There are multiple white matter hyperintensities, distributed throughout the deep white matter tracts of the cerebral hemispheres, consistent with moderate chronic white matter ischemic changes. There is no evidence for recent intracranial ischemia or other cause of cytotoxic edema on diffusion weighted imaging (DWI). Normal bilateral basal ganglia. Normal thalami. There is no extra-axial fluid accumulation. Normal flow voids within the major intracranial circulation suggesting patency by spin echo criteria. Normal sella turcica, pituitary gland, infundibular stalk, optic chiasm and hypothalamus. Normal tectal plate and pineal gland. Normal midbrain, nanci and medulla. Normal cerebellum. Normal basal cisterns. Normal bilateral temporal bones. Normal bilateral internal auditory canals. No demonstrated orbital abnormality, within the constraints of a routine brain study. Normal visualized paranasal sinuses. Normal calvarium and skull base. Normal visualized soft tissue structures. Normal visualized upper cervical spine. Right parietal subcutaneous line pulmonary venous region is present. MRI/Brain without Contrast IMPRESSION: Senescent changes with no evidence of acute intracranial bleed, mass or ischemia. Electronically Signed: Juan Alberto Rowland DO at 20:40 EDT , Service support ,
[2019-06-26] MEDS: 0.9% Normal Saline 1,000 ML 75 ML IV (16:25)
[2019-06-26 17:20] LABS: Bedside Glucose 77 mg/dL (70-110)
[2019-06-26] MEDS: Carvedilol 25 MG Tablet PO (17:23)
[2019-06-26] MEDS: Enoxaparin 40 MG/0.4 ML Syringe SC (17:23)
[2019-06-26] MEDS: Acetaminophen 325 MG Tablet 650 MG PO (17:25)
[2019-06-26] MEDS: LORazepam 2 MG/ML Syringe 1 MG IV (18:36)
[2019-06-27 03:10] VITALS: PULSE 62
[2019-06-27 04:24] VITALS: BP 114/73; PULSE 60; RESP 17; TEMP 37.1; O2SAT 94
[2019-06-27] MEDS: 0.9% Normal Saline 1,000 ML 75 ML IV (06:44)
[2019-06-27 07:00] VITALS: PULSE 67
[2019-06-27 07:57] LABS: Anion Gap 3 (5-15); BUN 10 mg/dL (7-18); BUN/Creat Ratio 13.2 RATIO (10-20); Calcium,Total 7.9 mg/dL (8.5-10.1); Chloride 108 mmol/L (98-107); Cholesterol 178 mg/dL (200); Creatinine, Serum 0.76 mg/dL (0.70-1.30); EST Glomerular Filtration Rate 112 mL/min (>60); Est Glom Filt Rate - Afr Amer 136 mL/min (>60); Estimated Creatinine Clearance 110.09 ml/min; Glucose 80 mg/dL (74-106); High Density Lipoprotein 40 mg/dL; Potassium 3.9 mmol/L (3.5-5.1); Sodium Level 141 mmol/L (136-145); Triglycerides 112 mg/dL; Very Low Density Lipoprotein 22 mg/dL (5-40)
[2019-06-27 08:05] VITALS: O2SAT 93
[2019-06-27 08:20] VITALS: BP 113/63; PULSE 84; RESP 16; TEMP 36.5; O2SAT 93
[2019-06-27] MEDS: Enoxaparin 40 MG/0.4 ML Syringe SC (08:58)
[2019-06-27] MEDS: Aspirin E.C. 81 MG Tablet PO (08:59)
[2019-06-27] MEDS: Carvedilol 25 MG Tablet PO (08:59)
[2019-06-27] MEDS: Losartan Potassium 25 MG Tablet PO (08:59)
--- NOTE | 2019-06-27 10:21 | DCINST_ITS ---
- Discharge Diagnoses Current Active Problems: Current Active and Chronic Problems (Last Updated 12/24/18 @ 15:43 by BERNIE Bowen) Disequilibrium (Acute) You will use the following diet at home:: Cardiac Your food should be the consistency of: Soft (bite-sized & easy to chew/swallow) - Alternate bite and swallow, no extra Discharge Activity: May Not Drive Weight Bearing Status: Weight bearing as tolerated Call your doctor if you observe: Fever of 101 or Higher, Coldness, Increased Pain, Numbness or Tingling, Inability to urinate, Inability to have a bowel movement, Shortness of breath, Fainting spells, Swelling in the ankles, Chest pain, Prolonged hiccoughing, Increased palpitations (irregular heartbeat), Calf discomfort, Uncontrolled pain Additional Instructions: OUTPATIENT SPEECH/SWALLOW EVALUATION WITH MBS. Allergies/Adverse Reactions: Allergies doxycycline Allergy (Verified 06/26/19 11:12) Rash Medications to take at Discharge carvedilol 25 mg tablet 25 mg PO BID #180 tab 12/24/18 furosemide 20 mg tablet 20 mg PO DAILY #90 tab 12/24/18 Losartan Potassium [Cozaar] 25 mg PO DAILY 06/26/19 Apixaban [Eliquis] 5 mg PO BID #60 tab 06/27/19 Atorvastatin Calcium 20 mg PO DAILY #30 tab 06/27/19 The following prescriptions were given: Atorvastatin Calcium 20 mg PO DAILY #30 tab Transmission Status: Sent to [facility] Apixaban [Eliquis] 5 mg PO BID #60 tab Transmission Status: Received by [facility] Primary Care Physician: Kendra Antunez MD [Primary Care Provider] - Please follow up with your Primary Care Physician in: In 1 to 2 weeks Test Results: Test results from this visit will be discussed in further detail at your follow- up appointment, if applicable. Please Follow Up With: Jun Dumont MD When: IN 2-3 WEEKS Please Follow Up With: Yvon Patiño MD When: IN 3-4 WEEKS for PAFIB
--- NOTE | 2019-06-27 11:30 | DS.PCM_ITS ---
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 mid aspect adjacent to eyebrow Lipoma of neck (Chronic) 2 cm painful lipoma right posterior neck by occipital hairline Former smoker (Chronic) Neoplasm of skin of eyelid (Chronic) 1 cm lesion left upper eyelid mid aspect adjacent to eyebrow Dysesthesia (Chronic) right posterior neck by occipital hairline Mass of right side of neck (Chronic) 2 cm painful mass right posterior neck by occipital hairline Hypertension (Chronic) New onset atrial fibrillation (Chronic 12/05/17) Non-ischemic cardiomyopathy (Chronic) Nicotine dependence (Chronic) Hospital Course and Treatment Operations: None Summary of Care Provided: The patient is a 59 year old M with 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 The symptoms lasted about 2 to 3 hours. Also complaining of left axilla pain which radiated to left arm and fingers and then back to the neck is old. Head CT was done negative for acute intracranial abnormality. CT head and neck was reported as normal EKG sinus bradycardia at 51 bpm. QTc 439 ms. EMS EKG was similar normal sinus rhythm at [address]-T abnormality. First troponin negative. Was further admitted with clinical diagnosis of TIA 1. Transient disequilibrium possible TIA rule out acute stroke: Patient does not have history of previous TIA or stroke. Being admitted in PCU. MRI brain and 2D echo ordered. Repeat 1 more troponin to rule out acute coronary syndrome although this is very unlikely with normal first troponin and EKG and heart cath in 2018 which was negative. Patient got aspirin 81 mg in ER and is continued. On 06/26: MRI brain is negative for acute stroke or mass or bleed. 2D echo was done as reported below. No Doppler evidence of ASD Interpretation Summary The estimated ejection fraction is 55 %. No evidence for diastolic dysfunction. Trivial tricuspid valve insufficiency. The study was technically difficult. Contrast injection was performed. 2. Viral myocarditis, chronic systolic heart failure, nonischemic cardiomyopathy: It had echo in May 2018 as recorded below follows Dr. vargas. Normal left ventricle. Previous echo of May 2018 The estimated ejection fraction is 35 %. Stage 1 diastolic dysfunction. Mild tricuspid valve insufficiency. Compared to previous study, the left ventricular systolic function has improved. 3. Paroxysmal A. fib: On monitor technician patient rhythm alternates sinus bradycardia with A. fib. 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 We agreed upon putting him on Eliquis 5 mg twice daily. Patient said he was on Eliquis for 1 month prior to cardioversion and then was converted to sinus rhythm and Eliquis was discontinued. I also think patient should take baby aspirin along with Eliquis as he is high risk for stroke. If patient gets GI b leed or high risk for bleeding, will stop aspirin first. 4. Other comorbidities hypertension, former smoker: Blood pressure is 116/80. Continue home medications. Patient on losartan, Lasix and Coreg. Discharge medication reconciliation done. Discharge follow-up instructions completed. Discharge process discussed with the patient and all questions were answered to patient's satisfaction. Full code Total time spent, exact 35 minutes on discharge meds reconciliation, examination, coordination of care with nurses and ancillary staff, review of imaging and blood test and discussion with the patient on follow-up instructions Advance directive/living will/CODE STATUS: Patient does not have living will or advanced directive at home. When asked directly about different code situations, he wants to be resuscitated but does not want to be in the vegetable condition for long time. Patient does want artificial life support including intubation, tube feed, ventilator and/chest compression, CVC and vasopressor if needed and DC shock. Code. Total time spent in [id number] encounter in discussion of advanced directive 16 minutes. Clinical Impression(s) from Imaging Studies Brain CT 06/26/19 11:12 IMPRESSION: No acute intracranial pathology Electronically Signed: Rajesh Dominguez, at 12:24 EDT Tel , Service support , Chest X-Ray 06/26/19 11:25 IMPRESSION: Hyperinflation. No acute abnormality is seen. Electronically Signed: Tanmay Zheng, at 13:30 EDT , Service support , Head/Neck CTA 06/26/19 12:16 IMPRESSION: Normal CTA Head and neck with contrast. Electronically Signed: Rajesh Dominguez, at 13:42 EDT Tel , Service support , Brain MRI 06/26/19 15:58 IMPRESSION: Senescent changes with no evidence of acute intracranial bleed, mass or ischemia. - Physical Exam Vitals/I&O's: Vital Signs Temp Pulse Resp BP Pulse Ox 97.7 F L 84 16 113/63 93 06/27/19 08:20 06/27/19 08:20 06/27/19 08:20 06/27/19 08:20 06/27/19 08:20 Oxygen Delivery Method Room Air Weight: 178 lb 9.191 oz Body Mass Index (BMI) 24.9 Intake and Output for Last 24 Hours 06/25/19 06/26/19 06/27/19 23:59 23:59 23:59 Intake Total 1102.5 / 1102.5 927.5 / 927.5 Balance 1102.5 / 1102.5 927.5 / 927.5 General: Alert, Oriented x3, Cooperative HEENT: Atraumatic, PERRLA, EOMI, Normocephalic Neck: Supple, No JVD, Negative Carotid Bruits Lungs: Clear to auscultation, Normal air movement, No rhonchi, No wheeze, No rales Cardiovascular: Normal S1, Normal S2, No murmurs, Irregular Rate - On monitor technician independently patient has irregular heartbeat suggestive of A. fib, intermittently sinus rhythm alternating with with A. fib Abdomen: Bowel Sounds Present, Soft, Non Tender Extremities: No edema, Capillary Refill Less than 3 Seconds Skin: No rashes, No breakdown Musculoskeletal: No Tenderness to Palpation of Joints or Extremities, Arthritic Changes Neurological: Cranial nerves II-XII grossly intact, Deep Tendon Reflexes 2+/4 and Symmetrical, Neuro grossly intact, Motor Exam 5/5 strength throughout, - - NIHSS 0 Psych/Mental Status: Normal Affect, Appropriate Laboratory Results 06/26/19 11:26: WBC 6.1, RBC 4.60, Hgb 13.7, Hct 41.7, MCV 90.7, MCH 29.8, MCHC 32.9, RDW Std Deviation 42.7, RDW Coeff of [place] 13.0, Plt Count 242, MPV 10.4, Immature Gran % (Auto) 0.200, Neut % (Auto) 57.7, Lymph % (Auto) 28.3, [place] % (Auto) 9.2, Eos % (Auto) 3.6, Baso % (Auto) 1.0, Absolute Neuts (auto) 3.5, Absolute Lymphs (auto) 1.72, Nucleated RBC % 0 06/26/19 11:26: Sodium 139, Potassium 4.0, Chloride 105, Carbon Dioxide 29.0, Anion Gap 5, BUN 11, Creatinine 0.80, Estim Creat Clear Calc 104.58, Est GFR (MDRD) Af Amer 126, Est GFR (MDRD) Non-Af 105, BUN/Creatinine Ratio 13.7, Gluco se 91, Calcium 8.1 L, Total Bilirubin 0.30, AST 14 L, ALT 30, Alkaline Phosphatase 55, Troponin I < 0.015, Total Protein 6.7, Albumin 3.5, Globulin 3. 2, Albumin/Globulin Ratio 1.1 06/26/19 13:21: Urine Color Yellow, Urine Clarity Sl. Cloudy, Urine pH 6.0, Ur Specific [place] 1.015, Urine Protein Negative, Urine Glucose (UA) Normal, Urine Ketones Negative, Urine Occult Blood Negative, Urine Nitrite Negative, Urine Bilirubin Negative, Urine Urobilinogen Normal, Ur Leukocyte Esterase Negative, Urine RBC 0-5 SEEN, Urine WBC 0 SEEN, Ur Squamous Epith Cells 0-5 SEEN, Urine Bacteria 0 SEEN, Urine Mucus 0 SEEN 06/26/19 16:07: Troponin I < 0.015 06/26/19 17:17: POC Glucose 77 06/27/19 06:40: Sodium 141, Potassium 3.9, Chloride 108 H, Carbon Dioxide 30.0, Anion Gap 3 L, BUN 10, Creatinine 0.76, Estim Creat Clear Calc 110.09, Est GFR (MDRD) Af Amer 136, Est GFR (MDRD) Non-Af 112, BUN/Creatinine Ratio 13.2, Glucose 80, Calcium 7.9 L, Triglycerides 112, Cholesterol 178, LDL Cholesterol 116, VLDL Cholesterol 22, HDL Cholesterol 40, TSH 0.60 Current Medications Acetaminophen (Tylenol) 650 mg PO Q6H PRN PRN PRN Reason: Pain Score 1-10/Temp > 100.7 F Last Admin: 06/26/19 17:25 Dose: 650 mg Documented by: Al Hydroxide/Mg Hydroxide (Mylanta Ii) 30 ml PO Q6H PRN PRN PRN Reason: Gastric Burning Aspirin (Ecotrin) 81 mg PO DAILY@0800 [facility] Last Admin: 06/27/19 08:59 Dose: 81 mg Documented by: Carvedilol (Coreg) 25 mg PO BIDCM [facility] Last Admin: 06/27/19 08:59 Dose: 25 mg Documented by: Dextrose (D50w Syringe) 0 gm IV X1 PRN; Protocol PRN Reason: Hypoglycemia Enoxaparin Sodium (Lovenox) 40 mg SC DAILY [facility] Last Admin: 06/27/19 08:58 Dose: 40 mg Documented by: Glucagon () 1 mg IM .X1 PRN PRN Reason: Hypoglycemia Hydralazine HCl (Apresoline Iv) 5 mg IV Q30M PRN PRN Reason: to maintain BP goals Sodium Chloride () 1,000 mls @ 75 mls/hr IV .[id number] [facility] Last Admin: 06/27/19 06:44 Dose: 75 mls/hr Documented by: Labetalol HCl (Trandate) 10 - 20 mg IV Q10M PRN PRN PRN Reason: to maintain BP goals Losartan Potassium (Cozaar) 25 mg PO DAILY [facility] Last Admin: 06/27/19 08:59 Dose: 25 mg Documented by: Morphine Sulfate () 2 mg IV Q3H PRN PRN PRN Reason: Pain Score 6-10/10 Nitroglycerin (Nitrostat) 0.4 mg SUBLINGUAL Q5M PRN PRN Reason: CARDIAC/CHEST PAIN Oxycodone HCl (Oxyir) 5 mg PO Q4H PRN PRN PRN Reason: Pain Score 4-5/10 Prochlorperazine Edisylate (Compazine Iv) 5 mg IV Q4H PRN PRN PRN Reason: Breakthrough Nausea/Vomiting Senna/Docusate Sodium (Senokot-S, Kellee-Colace) 2 tablet PO BID PRN PRN PRN Reason: Constipation Discharge Activity: May Not Drive Weight Bearing Status: Weight bearing as tolerated Call your doctor if you observe: Fever of 101 or Higher, Coldness, Increased Pain, Numbness or Tingling, Inability to urinate, Inability to have a bowel movement, Shortness of breath, Fainting spells, Swelling in the ankles, Chest pain, Prolonged hiccoughing, Increased palpitations (irregular heartbeat), Calf discomfort, Uncontrolled pain Home Medications: Medications to take at Discharge carvedilol 25 mg tablet 25 mg PO BID #180 tab 12/24/18 furosemide 20 mg tablet 20 mg PO DAILY #90 tab 12/24/18 Losartan Potassium [Cozaar] 25 mg PO DAILY 06/26/19 Apixaban [Eliquis] 5 mg PO BID #60 tab 06/27/19 Aspirin [Aspirin EC] 81 mg PO DAILY #30 tablet. 06/27/19 Atorvastatin Calcium 20 mg PO DAILY #30 tab 06/27/19 Following Prescrptions Were Given to Patient: Aspirin [Aspirin EC] 81 mg PO DAILY #30 tablet. Transmission Status: Sent to [facility] Atorvastatin Calcium 20 mg PO DAILY #30 tab Transmission Status: Sent to [facility] Apixaban [Eliquis] 5 mg PO BID #60 tab Transmission Status: Received by [facility] Primary Care Physician: Kendra Antunez MD [Primary Care Provider] - Please follow up with your Primary Care Physician in: In 1 to 2 weeks Please Follow Up With: Jun Dumont MD When: IN 2-3 WEEKS Medical Necessity - Tobacco Use Smoking Status: Former smoker Tobacco Use: Cigarettes Meaningful Use Info Meaningful Use Diagnoses (Choose all that apply): None applicable OBSV E&M: 69094 Observation care discharge
--- NOTE | 2019-06-27 12:09 | CASEMGMT ---
Per Keri HARRIS, pt's gait is steady and pt independent in hallway. Pt ready for discharge at this time. Destiny HARRIS CM
--- NOTE | 2019-06-27 12:47 | EKG12_ITS ---
Test Reason : ROUTINE Blood Pressure : / mmHG Vent. Rate : 061 BPM Atrial Rate : 061 BPM P-R Int : 180 ms QRS Dur : 074 ms QT Int : 384 ms P-R-T Axes : 068 099 060 degrees QTc Int : 386 ms Normal sinus rhythm with sinus arrhythmia Low voltage QRS Septal infarct , age undetermined Abnormal ECG When compared with ECG of 26-JUN-2019 11:34, Septal infarct is now Present Confirmed by TERI YOUNGER, INNA ([id number]), commissioning editor QUINTON BREWSTER ([id number]) on 07/01/2019 7:50:36 AM Referred By: RAMYA Confirmed By:INNA WILLIAMSON MD
== END 2019-06-27 10:24 | disposition home or self-care (01) ==
LOC: ED 11:30 → PCU 16:07
PROVIDERS: Admitting Provider Internal Medicine; Emergency Provider Emergency Medicine; PCP Family Medicine; Visit Provider Internal Medicine
DX: R53.1 Weakness (principal); R26.81 Unsteadiness on feet; I07.1 Rheumatic tricuspid insufficiency; R00.1 Bradycardia, unspecified; I48.0 Paroxysmal atrial fibrillation; I42.8 Other cardiomyopathies; Z87.891 Personal history of nicotine dependence; Z79.899 Other long term (current) drug therapy; J44.9 Chronic obstructive pulmonary disease, unspecified; I25.2 Old myocardial infarction; L40.9 Psoriasis, unspecified; I11.0 Hypertensive heart disease with heart failure; I50.22 Chronic systolic (congestive) heart failure
CPT/HCPCS: 70450; 70496; 70498; 70551; 71045; 80048; 80053; 80061; 81001; 82962; 84443; 84484; 85025; 92610; 93005; 93306; 94762; 96361; 96372; 96374; 99218; 99251; 99285; J7030; Q9957; Q9967; A4216; C8929; G0378; G0463

== ENCOUNTER → 2019-06-27 | Outpatient (REF) | payer BC, SELFPAY ==
[2019-06-26 21:56] VITALS: BMI 24.9
== END | disposition home or self-care (01) ==
LOC: CVS 13:11
PROVIDERS: PCP Family Medicine; Referring Provider Internal Medicine; Visit Provider Internal Medicine
DX: I48.91 Unspecified atrial fibrillation (principal); R00.1 Bradycardia, unspecified; Z86.73 Personal history of transient ischemic attack (TIA), and cerebral infarction without residual deficits
CPT/HCPCS: 93270; 93271

== ENCOUNTER → 2020-01-23 | Outpatient (CLI) | payer BC, SELFPAY ==
[2020-01-21 15:37] VITALS: BMI 24.8
[2020-01-23 07:39] LABS: AST(SGOT) 14 U/L (15-37); Alanine Aminotransfer ALT/SGPT 28 U/L (16-61); Albumin, Serum 3.5 g/dL (3.2-5.0); Alkaline Phosphatase 66 U/L (45-117); Bilirubin, Direct 0.15 mg/dL (0.00-0.30); Cholesterol 149 mg/dL (200); Globulin 3.4 g/dL (2.2-4.2); High Density Lipoprotein 51 mg/dL; Protein, Total 6.9 g/dL (6.4-8.2); Triglycerides 81 mg/dL; Very Low Density Lipoprotein 16 mg/dL (5-40)
== END | disposition home or self-care (01) ==
LOC: LAB 06:56
PROVIDERS: PCP Family Medicine; Referring Provider Nurse Practitioner Family; Visit Provider Nurse Practitioner Family
DX: I10 Essential (primary) hypertension (principal); E78.5 Hyperlipidemia, unspecified
CPT/HCPCS: 36415; 80061; 80076

== ENCOUNTER → 2020-12-01 14:52 | Outpatient (CLI) | payer BC, SELFPAY ==
[2020-08-31 15:27] VITALS: BMI 25.7
--- NOTE | 2020-12-01 14:56 | ECHOCS_ITS ---
Reason For Study: HTN Procedure This was a 2D Doppler, Color Flow transthoracic echocardiogram. Contrast injection was performed. The study was technically difficult. Exam performed in department. Left Ventricle Normal LV size. The estimated ejection fraction is 45 %. Stage 1 diastolic dysfunction. There is mild global hypokinesis of the left ventricle. Right Ventricle Normal RV size. Normal systolic function. Atria Normal left atrium. Normal right atrium. Mitral Valve Normal mitral valve. Tricuspid Valve Normal tricuspid valve. Aortic Valve Normal aortic valve. Trisinus/trileaflet aortic valve. Pulmonic Valve Normal pulmonic valve. Great Vessels Normal aortic root. The pulmonary artery is normal size. Normal inferior vena cava. Pericardium/Pleural No pericardial effusion. Medication Diluted definity 6ml given slow IV push to enhance endocardial definition. MMode/2D Measurements & Calculations LVIDd: 5.2 cm IVSd: 1.3 cm Ao root diam: 2.8 cm LVIDs: 4.3 cm LVPWd: 1.3 cm RVDd: 3.4 cm FS: 17.2 % LAV(MOD-bp): 51.4 ml LVAd ap4: 35.0 cm2 SV(MOD-sp4): 49.2 ml LAV(MOD-bp) Indexed: 25.8 ml/m2 LVLd ap4: 8.8 cm LAV(MOD-sp2): 47.7 ml EDV(MOD-sp4): 117.9 ml LAV(MOD-sp4): 45.6 ml EDV(sp4-el): 118.6 ml LVAs ap4: 24.7 cm2 LVLs ap4: 7.7 cm ESV(MOD-sp4): 68.6 ml ESV(sp4-el): 67.2 ml EF(MOD-sp4): 41.8 % EF(sp4-el): 43.3 % SV(sp4-el): 51.4 ml LA A4 area: 18.0 cm2 LA dimension(2D): 3.7 cm RA A4 area: 13.1 cm2 Doppler Measurements & Calculations MV E max frank: 45.7 cm/sec Lat Peak E' Frank: 5.7 cm/sec Med Peak E' Frank: 4.6 cm/sec MV A max frank: 59.6 cm/sec E/E' lat: 8.0 E/E' med: 10.0 MV E/A: 0.77 Ao V2 max: 106.8 cm/sec LV V1 max: 70.2 cm/sec PA V2 max: 83.5 cm/sec Ao max P.6 mmHg LV V1 max P.0 mmHg Ao V2 mean: 77.9 cm/sec Ao mean P.6 mmHg Ao V2 VTI: 19.2 cm TR max frank: 220.0 cm/sec TR max P.4 mmHg ECHO/Echo Complete W/ Contrast Interpretation Summary Normal LV size. The estimated ejection fraction is 45 %. Stage 1 diastolic dysfunction. Compared to previous study, the left ventricular systolic function has worsened .. Contrast injection was performed. Ordering Physician: Yvon Patiño Referring Physician: Kendra Antunez Performed By: Tania Duran, ERNST, RVT
== END ==
PROVIDERS: PCP Family Medicine; Referring Provider Internal Medicine Cardiovascular Disease; Visit Provider Internal Medicine Cardiovascular Disease
DX: I10 Essential (primary) hypertension (principal)
CPT/HCPCS: 93306; Q9957; A4216; C8929; J3490

== ENCOUNTER → 2022-12-19 | Outpatient (CLI) | payer OTHER, SELFPAY ==
[2022-12-19 14:38] LABS: Absolute Lymphocyte Count 1.48 X10^3/uL (0.83-4.51); Absolute Neutrophil Count 4.2 X10^3/uL (2.0-7.7); Basophil# 0.05 X10^3/uL; Basophil% 0.8 % (0-1); Eosinophil# 0.13 X10^3/uL; Hemoglobin 15.2 g/dL (13.0-16.5); Lymphocyte # 1.48 X10^3/ul (0.83-4.51); Lymphocyte % 23.2 % (19-41); Mean Corpuscular Volume 93.7 fL (80-94); Mean Platelet Vol. 10.6 fl (6.2-12.0); Monocyte# 0.48 X10^3/uL; Monocyte% 7.5 % (0-10); NRBC Flagged by Analyzer 0 % (0-5); Neutrophil # 4.21 X10^3/uL (2.7-7.7); Neutrophil % 66.2 % (47-70); Platelet Count 247 K/mm3 (150-450); RBC Distribution Width CV 13.8 % (11.6-14.6); RBC Distribution Width SD 47.8 fl (35.1-43.9); Red Blood Count 4.91 M/mm3 (4.6-6.2); White Blood Count 6.4 K/mm3 (4.4-11.0)
[2022-12-19 15:02] LABS: Anion Gap 6 (5-15); BUN 14 mg/dL (7-18); BUN/Creat Ratio 15.7 RATIO (10-20); Calcium,Total 8.7 mg/dL (8.5-10.1); Chloride 103 mmol/L (98-107); Creatinine, Serum 0.89 mg/dL (0.70-1.30); EST Glomerular Filtration Rate 91 mL/min (>60); Est Glom Filt Rate - Afr Amer 110 mL/min (>60); Glucose 125 mg/dL (74-106); PSA,Total - Annual Screen 1.47 ng/mL (0.00-4.00); Potassium 4.1 mmol/L (3.5-5.1); Sodium Level 138 mmol/L (136-145); Thyroid Stim Hormone (TSH) 0.82 uIU/mL (0.358-3.74)
== END | disposition home or self-care (01) ==
LOC: MFPLAB 14:06
PROVIDERS: PCP Family Medicine; Visit Provider Family Medicine
DX: I50.9 Heart failure, unspecified (principal); Z12.5 Encounter for screening for malignant neoplasm of prostate
CPT/HCPCS: 36415; 80048; 84153; 84443; 85025; G0103

== ENCOUNTER → 2023-01-10 | Outpatient (CLI) | payer OTHER, SELFPAY ==
--- NOTE | 2023-01-10 09:00 | ECHOCS_ITS ---
Reason For Study: EVAL EF POST MED RESTART Procedure This was a 2D Doppler, Color Flow transthoracic echocardiogram. The study was technically difficult. Contrast injection was performed. Exam performed in department. Left Ventricle Normal LV size. The estimated ejection fraction is 25 %. Stage 1 diastolic dysfunction. No regional wall motion abnormalities noted. Right Ventricle Normal RV size. Normal systolic function. Tricuspid Valve Normal tricuspid valve. Aortic Valve Trisinus/trileaflet aortic valve. Pulmonic Valve Normal pulmonic valve. Great Vessels Normal aortic root. The pulmonary artery is normal size. Normal inferior vena cava. Pericardium/Pleural No pericardial effusion. Medication 22 gauge I.V. with prn adaptor inserted into right arm. Diluted definity 1ml given slow IV push to enhance endocardial definition. MMode/2D Measurements & Calculations LVIDd: 5.4 cm IVSd: 1.00 cm Ao root diam: 3.8 cm LVIDs: 4.9 cm LVPWd: 1.00 cm FS: 10.7 % LAV(MOD-bp): 45.9 ml LVAd ap4: 45.3 cm2 SV(MOD-sp4): 51.5 ml LAV(MOD-bp) Indexed: 22.1 ml/m2 LVLd ap4: 9.2 cm LAV(MOD-sp2): 67.6 ml EDV(MOD-sp4): 187.7 ml LAV(MOD-sp4): 25.4 ml EDV(sp4-el): 189.0 ml LVAs ap4: 38.4 cm2 LVLs ap4: 9.0 cm ESV(MOD-sp4): 136.2 ml ESV(sp4-el): 139.9 ml EF(MOD-sp4): 27.4 % EF(sp4-el): 26.0 % SV(sp4-el): 49.1 ml LA dimension(2D): 4.2 cm LA A4 area: 11.2 cm2 RA A4 area: 13.6 cm2 TAPSE: 1.8 cm Time Measurements MV dec time: 0.08 sec Doppler Measurements & Calculations MV E max frank: 34.0 cm/sec Lat Peak E' Frank: 5.0 cm/sec Med Peak E' Frank: 5.8 cm/sec MV A max frank: 61.2 cm/sec E/E' lat: 6.8 E/E' med: 5.9 MV E/A: 0.56 MV V2 max: 83.2 cm/sec Ao V2 max: 121.4 cm/sec MV max P.8 mmHg MV dec slope: 442.9 cm/sec2 Ao max P.9 mmHg MV V2 mean: 45.1 cm/sec Ao V2 mean: 86.6 cm/sec MV mean P.00 mmHg Ao mean P.4 mmHg MV V2 VTI: 21.5 cm Ao V2 VTI: 22.9 cm AV (velocity ratio): 0.66 LV V1 max: 88.6 cm/sec PA V2 max: 84.2 cm/sec LV V1 max P.1 mmHg PA V2 mean: 57.6 cm/sec LV V1 mean P.8 mmHg LV V1 mean: 63.0 cm/sec LV V1 VTI: 15.1 cm ECHO/Echo Complete W/ Contrast Interpretation Summary Normal LV size. The estimated ejection fraction is 25 %. No regional wall motion abnormalities noted. Stage 1 diastolic dysfunction. Contrast injection was performed. Compared to previous study, the left ventricu lar systolic function has worsened.. Ordering Physician: Marco Duran Referring Physician: Marco Duran Performed By: Ying Hayden RCS
== END | disposition home or self-care (01) ==
LOC: CVS 08:55
PROVIDERS: PCP Family Medicine; Referring Provider Nurse Practitioner Family; Visit Provider Nurse Practitioner Family
DX: I42.8 Other cardiomyopathies (principal)
CPT/HCPCS: 93306; Q9957; A4216; C8929

== ENCOUNTER 2023-01-31 09:30 | Outpatient (RCR) | payer OTHER, SELFPAY ==
--- NOTE | 2022-12-25 08:38 | HP.PTEVAL_ITS ---
Patient's Visit Information Visit Information Visit Information: YARY CAVAZOS is a 62 year old M referred to Physical Therapy by Dr. Kendra Antunez MD with a diagnosis of L shoulder tendonitis. Date of Evaluation: 12/25/22 Physical Therapist: Garo Ayers, DPT, OCS, CSCS Visit Plan Frequency: 2x /Week Duration: 4-6 Weeks Plan: 2x/week for 3-6 weeks 1. Activity mdoificaiton per hammer theory, postural focus, progress to RC and postural strength via HEP, pec stretches, ice 2. Get I with overall general strength in gym to I. 3. US and STM as needed if painful at rest. Subjective Subjective: L shoulder hurts at night. That started about 3 months ago. Possibly because he caught his mom when she was falling one time, hurt a little at that time. It also hurts to lift it into abduction with IR. Comfortable at rest. Hard to sleep , cannot lie on it or on the other side. Activities: Don't do much, drives OK. Basic ADLS;getting dressed hurts into jacket. Behind is not a problem No regular exercises Retired. Pain L shoulder: Pain Intensity (Out of 10): 0 Pain Intensity Range: 0 and 6 Comment: night is worse. Objective Objective: Posture is forward head and protracted scap B. Tender to touch at subscap and supra tendon in L shoulder, not in R. cervical aROM WFL and without pain, feels stiff. UE AROM is fulla t shoulder , elbow and wrist. Shoulder abd hurts, ER hurts at end range on L. flexion hurts at end range. PROM better but still painful end range elevation reflexes 2/3 bi and tri sensation UE limited in B hands but pt has CTS in both hands. Strength:flexion 4 R and 4- with pain L, abduction 4 R and 4- pain left, er 4 R and 3+ L pain, IR 4- R and 3+ L pain. + L HK and neer impingement test, - ext rotation lag test, - drop arm,- sulcus. Balance/Special Test Scores Quick DASH Score: 42.5000 Goals Goal 1:: Sleep at night without interruption Goal Time Frame: 4-6 Weeks Goal 2:: pain in shoulder 75% better at 1/10 at worst Goal Time Frame: 4-6 Weeks Goal 3:: i appropriate HEP for shoulder and gym program for overall health Goal Time Frame: 4-6 Weeks Goal 4:: quickdash score of 15 or less. Goal Time Frame: 4-6 Weeks Rehabilitation Potential Physical Therapy Diagnosis: supraspinatus, subscap tendonitis L shoulder causing sleeping problems and pain. Rehabilitation Potential: Good Anticipated Interventions Patient/Client Instruction: Educate patient on: Condition and Plan of Care For the Purpose of:: To decrease pain, To increase ROM, To improve nutrient delivery to tissue, To improve muscle performance and motor function, To increase tolerance to activity/condition/position and To improve ability of physical actions for home/community/work/leisure Therapeutic Exercise to Include: Strength training, Postural training, Flexibilty training, Passive ROM and Active ROM For the Purpose of:: To decrease pain, To decrease swelling/inflammation, To increase ROM, To improve nutrient delivery to tissue, To improve muscle performance and motor function, To improve ability to perform ADL's and To improve ability of physical actions for home/community/work/leisure Manual Therapy Techniques to Include: Mobilization and Soft tissue mobilization For the Purpose of:: To decrease pain, To increase ROM and To improve nutrient delivery to tissue Cryotherapy (ice pack, ice massage): Yes Ultrasound (thermal/non thermal): Yes For the Purpose of:: To decrease pain, To increase ROM and To improve nutrient delivery to tissue Text: Thank you for the opportunity to evaluate your patient. For Medicare and Medicare HMO plans, please review the plan of care and approve it. It will need to be FAXED BACK to us at [phone] for Medicare purposes. For Medicare only, by signing this I certify the plan of care. Please let me know if there are questions or concerns regarding this plan of care. Physician Signature: Date:
--- NOTE | 2023-01-31 09:56 | HP.PTDCSUM ---
Discharge Summary D/C summary: It has been my pleasure to treat YARY CAVAZOS referred by Dr. Kendra Antunez MD, with the diagnosis of L shoulder tendonitis for a total of 8 visit(s). Discharge Date: 01/31/23 Please see the following information for a summary of their discharge status. Subjective Subjective: Been doing strengthening exercises. thumb down elevation position is still painful. Carrying tables once bothered him. May hurt at night if he gets that sensation during the day. Cream helps and then he is Ok . Comfortable otherwise. Activities: normal. Dr. Antunez nothing scheduled. Pain L shoulder: Pain Intensity (Out of 10): 0 Overall Improvement % Improvement: 75 Objective Objective/Function: Full AROM B shoulders and symmetrical however abduction with thumb down still mildly transiently painful. Strength is also symmetircal without pain excpt abduction L 4 vs 4+ and slightly painful. Pain at end range ext rotation L. Goals Goal 1:: Sleep at night without interruption Goal Progress: mostly met. Goal 2:: pain in shoulder 75% better at 1/10 at worst Goal Progress: Goal Met Goal 3:: i appropriate HEP for shoulder and gym program for overall health Goal Progress: Goal Met Goal 4:: quickdash score of 15 or less. Goal Progress: Progressing Plan Plan: d/c to HEP, pt to call doctor if pain worsens but is willing to live with current symptoms as long as they don't get worse since they are minimal and avoidable. D/C Information d/c sentence: If there are questions or concerns regarding this patient's physical therapy, please feel free to call me at [phone]. Thank you for the referral of this patient. Sincerely, Garo Ayers, DPT, OCS, CSCS Balance/Gait/Functional tests Balance/Special Test Scores Quick DASH Score: 32.5000 Improvement % Improvement: 75
== END 2023-01-31 10:04 | disposition home or self-care (01) ==
LOC: PT 09:30
PROVIDERS: PCP Family Medicine; Referring Provider Family Medicine; Visit Provider Family Medicine
DX: M77.8 Other enthesopathies, not elsewhere classified (principal)
CPT/HCPCS: 97110; 97140; 97161; 97164; 97530

== ENCOUNTER 2023-06-16 18:37 | Inpatient (IN) | payer OTHER, SELFPAY ==
[2023-06-16] VITALS (10 sets, daily range): BP systolic 125–141; BP diastolic 97–101; PULSE 64–88; RESP 16–20; TEMP 36.4–36.9; O2SAT 2–95; BMI 25.7; BMI 26.2
--- OUTSIDE RECORDS SUMMARY | 2023-06-16 18:50 | XMS RPT_ITS | CCD ---
Author Name Unknown Address [address] [place] [address] Organization [facility] Care Team Providers Care Earth Science Professor Name Role Phone YARED BURTON Unavailable Unavailable KANAA'N, NOHEMI DILCIA Unavailable Unavailabl e ASLAM, SUSHMA Unavailable Unavailable NILAJOSEPHOSWALDYARED Unavailable Unavailable ASLAM, SUSHMA Unavailable Unavailable CHRISTINA, WILBUR A Unavailable Unavailable KANAA N, NOHEMI Unavailable Unavailable Allergies Allergy Classification Reported Allergen(s) Allergy Type Date of Onset Reaction(s) Facility (2 sources) doxycycline; Translations: [DOXYCYCLINE] Drug Allergy 12-10-2014 [facility] Other [place] [facility] Problems Problem Classification Problem Date Documented Da te Episodic/Chronic Cardiac dysrhythmias (2 sources) Paroxysmal atrial fibrillation; Translations: [Paroxysmal atrial fibrillation] Onset: 12-05-2017 Chronic Chronic obstructive pulmonary disease and bronchiectasis (1 source) Chronic obstructive pulmonary disease, unspecified; Translations: [Chronic obstructive pulmonary disease, unspecified] Onset: 12-05-2017 Chronic Congestive heart failure; nonhypertensive (1 source) Acute systolic (congestive) heart failure; Translations: [Acute systolic (congestive) heart failure] Onset: 12-05-2017 Chronic Essential hypertension (1 source) Essential (primary) hypertension; Translations: [Essential (primary) hypertension] Onset: 12-05-2017 Chronic Other liver diseases (1 source) Abnormal levels of other serum enzymes; Translations: [Abnormal levels of other serum enzymes] Onset: 12-05-2017 Episodic Unclassified (1 source) Unknown / UNK(Unknown) Onset: 12-05-2017 Results Test Name Value Interpretation Reference Range Facil ity Encounters Encounter Date Encounter Type Care Provider Facility Start: 12-05-2017 End: 12-08-2017 Evaluation and management of inpatient YARED BURTON [facility] Payers Date Payer Category Payer Policy ID Unknown [id number] Summary Purpose Family History No Family History Records FoundNo Family History Records Found Advance Directives No Advanced Directives Records FoundNo Advanced Directives Records Found Additional Source Comments (unrecognized sect ion and content) No Status Records FoundNo Status Records Found INFORMATION SOURCE (unrecogn ized section and content) DATE CREATED AUTHOR AUTHOR'S ORGANIZ ATION 12/12/2017 [facility] FOR RECORDS PERTAINING TO PATIENTS WHO ARE OR HAVE BEEN ENROLLED IN A CHEMICAL DEPENDENCY/SUBSTANCEABUSE PROGRAM, SOME INFORMATION MAY BE OMITTED. This clinical summary was aggregated from multiple sources. Caution should be exercised in using it in the provision of clinical care. This summary normalizes information from multiple sources, and as a consequence, information in this document may materially change the coding, format and clinical context of patient data. In addition, data may be omitted in some cases. CLINICAL DECISIONS SHOULD BE BASED ON THE PRIMARY CLINICAL RECORDS. [facility] [email or web address] provides no warranty or guarantee of the accuracy or completeness of information in this document.
--- NOTE | 2023-06-16 19:00 | EKG12_ITS ---
Test Reason : DYSRHYTHMIA Blood Pressure : / mmHG Vent. Rate : 084 BPM Atrial Rate : 084 BPM P-R Int : 176 ms QRS Dur : 094 ms QT Int : 360 ms P-R-T Axes : 080 059 081 degrees QTc Int : 425 ms Normal sinus rhythm Low voltage QRS Nonspecific T wave abnormality Abnormal ECG Confirmed by Gabriele Helton ([id number]), features editor ABIMBOLA MCCONNELL ([id number]) on 06/18/2023 10:30:29 AM Referred By: Confirmed By:Gabriele Helton
--- NOTE | 2023-06-16 19:04 | EX.ED.DYSGE1 ---
HPI <KANG Amor - Last Filed: 06/16/23 21:20> History of Present Illness Chief Complaint: Shortness of Breath Narrative Narrative: Patient is a 63-year-old male with history of CAD, hypertension, tobacco use who quit 5 years ago, however he did smoke for 40 years. Presenting to the emergency department for 3 days of worsening cough, 24 hours of worsening shortness of breath. Patient states it started off as a mild cold, however over the last 24 hours, he is noticed significant shortness of breath. Patient is getting short of breath while doing basic activities, he states he has been sweaty and is here for evaluation. He denies any sick contacts. PFS <KANG Amor - Last Filed: 06/16/23 21:20> [facility] Medical History Acute systolic CHF (congestive heart failure) (12/05/17) Atrial fibrillation with RVR (12/05/17) COPD (chronic obstructive pulmonary disease) Disequilibrium (06/2019) Dysesthesia Essential (primary) hypertension Fatty liver Former smoker Lipoma of neck Mass of right side of neck Neoplasm of skin of eyelid New onset atrial fibrillation (12/05/17) Nicotine dependence Non-ischemic cardiomyopathy Non-STEMI (non-ST elevated myocardial infarction) (12/05/17) Paroxysmal atrial fibrillation Pilomatrixoma of eyelid Psoriasiform eczema Psoriasis TIA (transient ischemic attack) (06/2019) Home Medications carvedilol 25 mg tablet 25 mg PO BID #180 tabs 11/09/22 [Rx Last Taken Unknown] losartan 100 mg tablet 100 mg PO DAILY blood pressure #90 tabs 11/09/22 [Rx Last Taken Unknown] dapagliflozin propanediol 10 mg tablet (Farxiga) 10 mg PO DAILY #30 tabs 01/19/23 [Rx Last Taken Unknown] Allergy/AdvReac Type Severity Reaction Status Date / Time doxycycline Allergy Rash Verified 11/09/22 10:23 Family History Father Heart disease Myocardial infarction early 60's Hypertension Uncle Heart disease Myocardial infarction Mother Hypertension Asthma Breast cancer Diabetes Surgical History History of eye surgery History of herniorrhaphy History of right and left heart catheterization (12/07/17) Social History Smoking Status: Former smoker how long ago did patient quit smokin alcohol intake: current alcohol intake frequency: holidays/special occasions only Alcohol type: beer caffeine: Yes Type: carbonated beverages Number of servings: 1 and coffee Number of servings: 2 ROS <KANG Amor - Last Filed: 06/16/23 21:20> ROS ED ROS Narrative Constitutional: Negative for fever, chills, weight loss. Positive for weakness Eyes: Negative for vision loss, vision change, double vision ENT: Negative for any sore throat, ear pain, congestion Cardiovascular: Negative for any chest pain, tightness, palpitations Respiratory: Negative for any sputum production, hemoptysis.positive for cough, dyspnea, dyspnea on exertion, orthopnea Gastrointestinal: Negative for any abdominal pain, nausea, vomiting, diarrhea, constipation, blood in stool, blood in vomit : Negative for any urinary frequency, dysuria, retention, blood in urine Muscle skeletal: Negative for any neck pain, back pain. Positive for myalgias Neurological: Negative for any headache, syncope, dizziness Skin: Negative for any rashes, itching, abrasions, lacerations Psychiatric: Negative for any depression, anxiety, stress, suicidal ideation, homicidal ideation Hematologic: Negative for any excessive bruising, easy bleeding EXAM <KANG Amor - Last Filed: 06/16/23 21:20> Physical Exam Const Vital Signs: 06/16/23 18:40 06/16/23 18:50 06/16/23 19:06 Temperature 97.6 F L Temperature Source Temporal Pulse Rate 87 88 Respiratory Rate 20 H 20 H Respiratory Effort Normal Non-Labored Respiratory Depth Normal Respiratory Pattern Normal Normal Blood Pressure 141/100 H Blood Pressure Mean 113 Pulse Ox 92 Oxygen Delivery Method Room Air <Dr. Odell Montoya DO - Last Filed: 06/16/23 22:28> Physical Exam Narrative Exam Narrative: Vital signs reviewed. Patient appears to be in mild respiratory distress. Patient is tachypneic, conversational dyspnea. HEET: Head normocephalic atraumatic, TMs clear bilaterally. Posterior pharynx is clear, moist mucous membranes. Nares clear bilaterally. Neck: Supple with no lymphadenopathy or tenderness. No signs of meningismus. Cardiac: Regular rate and rhythm no murmurs gallops or rubs, equal peripheral pulses bilaterally. Respiratory: Lung sounds are diminished, patient has expiratory wheezes to bilateral lower lobes, right middle lobe shows some rhonchorous breath sounds. No chest tenderness. Abdomen: Soft, nontender, nondistended. No abdominal bruit or pulsatile masses. No hepatosplenomegaly Extremities: No peripheral edema, no signs of gross trauma or deformity. Active full range of motion of all extremities. Neuro: Cranial nerves II through XII intact, no focal neurological deficits. Skin: Clean dry and intact with no rash, purpura, petechiae, vesicles or pustules. Backs/flank: No CVA tenderness, no midline spinal tenderness, no deformity. Psych: Normal mood and affect. No SI, HI or acute psychosis Const Vital Signs: 06/16/23 18:40 06/16/23 18:50 06/16/23 19:06 Temperature 97.6 F L Temperature Source Temporal Pulse Rate 87 88 Respiratory Rate 20 H 20 H Respiratory Effort Normal Non-Labored Respiratory Depth Normal Respiratory Pattern Normal Normal Blood Pressure 141/100 H Blood Pressure Mean 113 Pulse Ox 92 Oxygen Delivery Method Room Air [facility] <KANG Amor - Last Filed: 06/16/23 21:20> [facility] Narrative Medical decision making narrative: Vital signs reviewed. Patient appears to be in mild respiratory distress. Patient is tachypneic, conversational dyspnea. HEET: Head normocephalic atraumatic, TMs clear bilaterally. Posterior pharynx is clear, moist mucous membranes. Nares clear bilaterally. Neck: Supple with no lymphadenopathy or tenderness. No signs of meningismus. Cardiac: Regular rate and rhythm no murmurs gallops or rubs, equal peripheral pulses bilaterally. Respiratory: Lung sounds are diminished, patient has expiratory wheezes to bilateral lower lobes, right middle lobe shows some rhonchorous breath sounds. No chest tenderness. Abdomen: Soft, nontender, nondistended. No abdominal bruit or pulsatile masses. No hepatosplenomegaly Extremities: No peripheral edema, no signs of gross trauma or deformity. Active full range of motion of all extremities. Neuro: Cranial nerves II through XII intact, no focal neurological deficits. Skin: Clean dry and intact with no rash, purpura, petechiae, vesicles or pustules. Backs/flank: No CVA tenderness, no midline spinal tenderness, no deformity. Psych: Normal mood and affect. No SI, HI or acute psychosis. Lab Data Labs: Laboratory Results - last 24 hr 06/16/23 19:05 WBC 7.1 RBC 4.83 Hgb 14.9 Hct 46.4 MCV 96.1 H MCH 30.8 MCHC 32.1 RDW Std Deviation 46.3 H RDW Coeff of Sanjuanita 12.9 Plt Count 245 MPV 10.6 Immature Gran % (Auto) 0.400 Neut % (Auto) 66.9 Lymph % (Auto) 16.5 L Pine % (Auto) 10.7 H Eos % (Auto) 4.8 Baso % (Auto) 0.7 Absolute Neuts (auto) 4.7 Absolute Lymphs (auto) 1.17 Nucleated RBC % 0 Sodium 140 Potassium 3.9 Chloride 108 H Carbon Dioxide 30.0 Anion Gap 2 L BUN 11 Creatinine 0.88 Estim Creat Clear Calc 90.32 Est GFR (MDRD) Af Amer 112 Est GFR (MDRD) Non-Af 92 BUN/Creatinine Ratio 12.5 Glucose 123 H Calcium 8.9 Radiography Diagnostic Testing: Clinical Impression(s) from Imaging Studies Chest X-Ray 06/16/23 20:00 IMPRESSION: No radiographic evidence of acute cardiopulmonary disease. Electronically Signed: Vishal Calderón MD at 20:37 EST , EKG Normal sinus rhythm: Attestation: I personally reviewed and interpreted this EKG as follows: Interpretation: Sinus Rhythm Comments: Normal sinus rhythm, rate of 84 bpm, MO interval 176 ms, QRS duration 94 ms, no acute ST elevation, no acute infarct noted. Treatment and Re-Evaluation :: Differential diagnosis includes however is not limited to: Community-acquired pneumonia, pleural effusions, COVID-19, influenza, other viral illness, COPD exacerbation. Patient appears to be in mild respiratory distress, patient is tachypneic, showing conversational dyspnea. Patient has been having much worse shortness of breath which is stemming from a cold does been ongoing for last 3 days. Patient will receive a two-view chest x-ray as we inter by ER physician. Patient will receive basic laboratory values including a COVID/RSV/influenza. Patient will be given IV fluids, breathing treatments as well as IV steroids. Patient will be reevaluated. Patient CBC was unremarkable, patient's chemistries were unremarkable, glucose 123. Patient's chest x-ray two-view inter by ER physician shows no radiographic evidence of acute cardiopulmonary disease. Patient's viral panel shows negative for any COVID, influenza or RSV. On reevaluation, the patient did feel slightly better after breathing treatments IV steroids. Patient was ambulated without his oxygen, patient immediately dropped to 86%. Secondary to the patient having oxygen at home, having no significant history of COPD I do believe the patient is to be admitted to the hospital. I spoke with hospitalist who is in agreement. Stable for admission <Dr. Odell Montoya, DO - Last Filed: 06/16/23 22:28> [facility] MDM Narrative Medical decision making narrative: Differential diagnosis includes however is not limited to: Community-acquired pneumonia, pleural effusions, COVID-19, influenza, other viral illness, COPD exacerbation. Patient appears to be in mild respiratory distress, patient is tachypneic, showing conversational dyspnea. Patient has been having much worse shortness of breath which is stemming from a cold does been ongoing for last 3 days. Patient will receive a two-view chest x-ray as we inter by ER physician. Patient will receive basic laboratory values including a COVID/RSV/influenza. Patient will be given IV fluids, breathing treatments as well as IV steroids. Patient will be reevaluated. Patient CBC was unremarkable, patient's chemistries were unremarkable, glucose 123. Patient's chest x-ray two-view inter by ER physician shows no radiographic evidence of acute cardiopulmonary disease. Patient's viral panel shows negative for any COVID, influenza or RSV. On reevaluation, the patient did feel slightly better after breathing treatments IV steroids. Patient was ambulated without his oxygen, patient immediately dropped to 86%. Secondary to the patient having oxygen at home, having no significant history of COPD I do believe the patient is to be admitted to the hospital. I spoke with hospitalist who is in agreement. Stable for admission This patient was seen with a PA/CARGO BRACER Individually assessed they patient including history and physical. I have reviewed everything on the chart that is available and agree with the documentation provided by the PA/CARGO BRACER including discussion about the assessment, treatment plan, discussion, and return precautions. Patient presenting with shortness of breath and hypoxia. He is tachypneic and in mild distress. Likely could be from the last 3 days. Patient given Solu-Medrol and breathing treatments. Lab work was obtained and is essentially unremarkable. Patient is feeling better after treatment and chest x-ray my interpretation shows no acute process. He was on oxygen I reviewed this patient dropped 86% on room air just sitting in bed. At this point I think he needs to be admitted. Impression: 1. COPD exacerbation 2. Hypoxic respiratory failure Lab Data Attestation: I reviewed the patient's lab results. Labs: Laboratory Results - last 24 hr 06/16/23 19:05 WBC 7.1 RBC 4.83 Hgb 14.9 Hct 46.4 MCV 96.1 H MCH 30.8 MCHC 32.1 RDW Std Deviation 46.3 H RDW Coeff of Sanjuanita 12.9 Plt Count 245 MPV 10.6 Immature Gran % (Auto) 0.400 Neut % (Auto) 66.9 Lymph % (Auto) 16.5 L Pine % (Auto) 10.7 H Eos % (Auto) 4.8 Baso % (Auto) 0.7 Absolute Neuts (auto) 4.7 Absolute Lymphs (auto) 1.17 Nucleated RBC % 0 Sodium 140 Potassium 3.9 Chloride 108 H Carbon Dioxide 30.0 Anion Gap 2 L BUN 11 Creatinine 0.88 Estim Creat Clear Calc 90.32 Est GFR (MDRD) Af Amer 112 Est GFR (MDRD) Non-Af 92 BUN/Creatinine Ratio 12.5 Glucose 123 H Calcium 8.9 Radiography Diagnostic Testing: Clinical Impression(s) from Imaging Studies Chest X-Ray 06/16/23 20:00 IMPRESSION: No radiographic evidence of acute cardiopulmonary disease. Electronically Signed: Vishal Calderón MD at 20:37 EST , Discharge Plan Dx/Rx/DC Orders Clinical Impression: Hypoxia, Acute exacerbation of chronic obstructive pulmonary disease Disposition Disposition: Acute Care Hospital [facility]
[2023-06-16] MEDS: Albuterol 2.5 MG/3 ML VIAL.NEB. 5 MG INHALATION (19:06)
[2023-06-16] MEDS: Ipratropium/Albuterol Sulfate 3 ML AMPUL.NEB INHALATION (19:06)
[2023-06-16 19:23] LABS: Absolute Lymphocyte Count 1.17 X10^3/uL (0.83-4.51); Absolute Neutrophil Count 4.7 X10^3/uL (2.0-7.7); Basophil# 0.05 X10^3/uL; Basophil% 0.7 % (0-1); Eosinophil# 0.34 X10^3/uL; Eosinophils% 4.8 % (0-5); Hematocrit 46.4 % (40-54); Hemoglobin 14.9 g/dL (13.0-16.5); Lymphocyte # 1.17 X10^3/ul (0.83-4.51); Lymphocyte % 16.5 % (19-41); Mean Corp Hgb Conc 32.1 g/dL (32-36); Mean Corpuscular Hgb 30.8 pg (27.0-32.0); Mean Corpuscular Volume 96.1 fL (80-94); Mean Platelet Vol. 10.6 fl (6.2-12.0); Monocyte# 0.76 X10^3/uL; Monocyte% 10.7 % (0-10); NRBC Flagged by Analyzer 0 % (0-5); Neutrophil # 4.72 X10^3/uL (2.7-7.7); Neutrophil % 66.9 % (47-70); Platelet Count 245 K/mm3 (150-450); RBC Distribution Width CV 12.9 % (11.6-14.6); RBC Distribution Width SD 46.3 fl (35.1-43.9); Red Blood Count 4.83 M/mm3 (4.6-6.2); White Blood Count 7.1 K/mm3 (4.4-11.0)
[2023-06-16] MEDS: MethylPREDNISolone 125 MG/2 ML Vial IV (19:26)
[2023-06-16] MEDS: 0.9% Normal Saline (1000mL) 1,000 ML 999 ML IV (19:26)
--- NOTE | 2023-06-16 19:31 | CPS ---
5mg Albuterol given to pt. in ER as well
[2023-06-16 19:40] LABS: Anion Gap 2 (5-15); BUN 11 mg/dL (7-18); BUN/Creat Ratio 12.5 RATIO (10-20); Calcium,Total 8.9 mg/dL (8.5-10.1); Chloride 108 mmol/L (98-107); Creatinine, Serum 0.88 mg/dL (0.70-1.30); EST Glomerular Filtration Rate 92 mL/min (>60); Est Glom Filt Rate - Afr Amer 112 mL/min (>60); Estimated Creatinine Clearance 90.32 ml/min; Glucose 123 mg/dL (74-106); Potassium 3.9 mmol/L (3.5-5.1); Sodium Level 140 mmol/L (136-145)
--- NOTE | 2023-06-16 20:00 | RAD_ITS ---
EXAM: XR CHEST, 2 VIEWS CLINICAL INDICATION: cough TECHNIQUE: Frontal and lateral views of the chest. COMPARISON: 06/26/2019 FINDINGS: LUNGS AND PLEURAL SPACES: Unremarkable. No consolidation or edema. No pneumothorax. No effusion. HEART: Unremarkable. Cardiac silhouette not enlarged. MEDIASTINUM: Central airways and mediastinal contour are unremarkable. BONES/JOINTS: Unremarkable. No acute fracture. SOFT TISSUES: Unremarkable. RAD/Chest PA and Lateral IMPRESSION: No radiographic evidence of acute cardiopulmonary disease. Electronically Signed: Vishal Calderón MD at 20:37 EST ,
[2023-06-16] MEDS: Ondansetron 4 MG/2 ML Vial IV (21:05)
--- NOTE | 2023-06-16 21:19 | PCM.HP.STD ---
[facility] - General General Date of Admission: 06/16/23 Date of Service: 06/16/23 Chief Complaint: SOB, Wheezing and Cough. HPI Narrative YARY CAVAZOS, is a 63 M with a past medical history of essential hypertension, hyperlipidemia, DM-2; of unknown control, CAD; s/p NSTEMI (2018), history of Systolic CHF, history of atrial fibrillation, history of TIA, history of psoriasisiform eczema and history of Tobacco Abuse (quit ~2019); but never formally diagnosed with COPD who presents to [facility] ER complaining of SOB, wheezing and cough. Mr. Cavazos reports his symptoms began approximately three days prior to admission with the gradual-onset of REYES that progressed to SOB at rest. He also admits to wheezing, REYES with easy fatigability and mild URI symptoms. He denies associated fever, chills, nausea, diarrhea, constipation or known recent sick contacts but he does admit being profusely sweaty with one episode of bilious emesis triggered by cough. In the ER he was diagnosed with AE COPD complicated by clinical evidence Acute Hypoxic Respiratory Insufficiency and he was then admitted to the general medical floor for ongoing care for a stay that is expected to be greater than 48 hours. [facility] Medical History Acute systolic CHF (congestive heart failure) (12/05/17) Atrial fibrillation with RVR (12/05/17) COPD (chronic obstructive pulmonary disease) Disequilibrium (06/2019) Dysesthesia Essential (primary) hypertension Fatty liver Former smoker Lipoma of neck Mass of right side of neck Neoplasm of skin of eyelid New onset atrial fibrillation (12/05/17) Nicotine dependence Non-ischemic cardiomyopathy Non-STEMI (non-ST elevated myocardial infarction) (12/05/17) Paroxysmal atrial fibrillation Pilomatrixoma of eyelid Psoriasiform eczema Psoriasis TIA (transient ischemic attack) (06/2019) Home Medications carvedilol 25 mg tablet 25 mg PO BID #180 tabs 11/09/22 [Rx Last Taken Unknown] losartan 100 mg tablet 100 mg PO DAILY blood pressure #90 tabs 11/09/22 [Rx Last Taken Unknown] dapagliflozin propanediol 10 mg tablet (Farxiga) 10 mg PO DAILY #30 tabs 01/19/23 [Rx Last Taken Unknown] aspirin 81 mg tablet,delayed release (Adult Aspirin Regimen) 81 mg PO DAILY asa 06/16/23 [History Last Taken Unknown] Allergy/AdvReac Type Severity Reaction Status Date / Time doxycycline Allergy Rash Verified 11/09/22 10:23 Family History Father Heart disease Myocardial infarction early 60's Hypertension Uncle Heart disease Myocardial infarction Mother Hypertension Asthma Breast cancer Diabetes Surgical History History of eye surgery History of herniorrhaphy History of right and left heart catheterization (12/07/17) Social History Smoking Status: Former smoker how long ago did patient quit smokin alcohol intake: current alcohol intake frequency: holidays/special occasions only Alcohol type: beer caffeine: Yes Type: carbonated beverages Number of servings: 1 and coffee Number of servings: 2 ROS ROS Narrative Review of systems: Constitutional: Patient admits to weakness but denies fever or chills. Eyes: Patient denies vision change or discharge from eyes. ENT: Patient denies sore throat, ear pain or congestion. Cardiovascular: Patient denies chest pain or palpitations Respiratory: Patient admits to nonproductive cough, dyspnea, dyspnea on exertion and orthopnea. Gastrointestinal: Patient denies abdominal pain, nausea, vomiting, diarrhea, constipation, blood in stool, blood in vomit : Negative for any urinary frequency, dysuria, retention or blood in urine Musculoskeletal: Patient admits to myalgias. Neurological: Patient denies headache, syncope or dizziness. Skin: Patient denies rashes, itching, abrasions, lacerations Psychiatric: Patient denies depression, anxiety, stress, suicidal ideation, homicidal ideation Hematologic: Patient denies excessive bruising, easy bleeding Endocrinologic: Patient denies polyuria, polydipsia and polyphagia. 14 point ROS otherwise negative except for positives noted in HPI. Vital Signs Vital Signs Vital Signs: 06/16/23 18:40 06/16/23 18:50 06/16/23 19:06 Temperature 97.6 F L Temperature Source Temporal Pulse Rate 87 88 Respiratory Rate 20 H 20 H Respiratory Effort Normal Non-Labored Respiratory Depth Normal Respiratory Pattern Normal Normal Blood Pressure 141/100 H Blood Pressure Mean 113 Pulse Ox 92 Oxygen Delivery Method Room Air Weight Weight: 185 lb Body Mass Index (BMI) 25.7 Physical Exam Const alert, oriented x3, no apparent distress and average body habitus General Appearance: cooperative HEENT normocephalic, head/scalp atraumatic, hearing grossly normal bilaterally and moist oral mucous membranes Eyes PERRL and EOMs intact bilaterally Neck no lymphadenopathy and supple Resp Resp Narrative: Diminished breath sounds throughout with scattered wheezes and rhonci. Auscultation: rhonchi and wheezes Cardio regular rate and regular rhythm GI normal to inspection, nondistended, normoactive bowel sounds, soft to palpation, non-tender and non-distended Extremity normal to inspection, full ROM and no clubbing, cyanosis or edema Neuro oriented x3, CN's II-XII intact bilaterally, moves all extremities and no focal motor deficits Sensorium / Orientation: awake, alert, oriented to person, oriented to place and oriented to time Speech: speech normal Motor Exam: strength 5/5 throughout Psych affect normal Results Medical Records Data Attestation: I reviewed the patient's medical records Lab / Micro Data Attestation: I reviewed the patient's lab results. 06/16/23 19:05 06/16/23 19:05 Labs: Laboratory Results - last 24 hr 06/16/23 19:05: WBC 7.1, RBC 4.83, Hgb 14.9, Hct 46.4, MCV 96.1 H, MCH 30.8, MCHC 32.1, RDW Std Deviation 46.3 H, RDW Coeff of Sanjuanita 12.9, Plt Count 245, MPV 10.6, Immature Gran % (Auto) 0.400, Neut % (Auto) 66.9, Lymph % (Auto) 16.5 L, Jackson % (Auto) 10.7 H, Eos % (Auto) 4.8, Baso % (Auto) 0.7, Absolute Neuts (auto) 4.7, Absolute Lymphs (auto) 1.17, Nucleated RBC % 0, Sodium 140, Potassium 3.9, Chloride 108 H, Carbon Dioxide 30.0, Anion Gap 2 L, BUN 11, Creatinine 0.88, Estim Creat Clear Calc 90.32, Est GFR (MDRD) Af Amer 112, Est GFR (MDRD) Non-Af 92, BUN/Creatinine Ratio 12.5, Glucose 123 H, Calcium 8.9 Micro: Microbiology 06/16/23 19:20 Mucosa - Nasopharyngeal SARS-CoV-2, Influenza & RSV (PCR) - Final Imaging Radiology Impression Chest X-Ray 06/16/23 20:00 IMPRESSION: No radiographic evidence of acute cardiopulmonary disease. Electronically Signed: Vishal Calderón MD at 20:37 EST , Assessment & Plan Assessment/Plan (1) Acute exacerbation of chronic obstructive pulmonary disease: (2) Respiratory insufficiency: PLAN: Plan 1. AE COPD - Admit to general medical floor. Continue broad-spectrum antibiotics, IV Solu Medrol plus scheduled and prn nebulizers. Give Tylenol prn pain or fever. 2. Acute Hypoxic Respiratory Insufficiency due to #1 - Wean supplemental oxygen tolerated. 3. Essential hypertension - Current regimen to be maintained plus give prn IV Hydralazine for systolic blood pressure > 160 mm Hg. 4. Hyperlipidemia - Resume statin as previous. 5. DM-2; of unknown control - ADA diet. FSBS q. AC/HS plus SSI. Check HgbA1c. 6. CAD; s/p NSTEMI (2018) - Continue daily BASA. 7. History of Systolic CHF - Stable. 8. History of atrial fibrillation - Noted. 9. History of TIA - Noted. 10. History of psoriasisiform eczema - Stable with no evidence of acute flare. 11. DVT prophylaxis - Lovenox 40 mg sq daily. Total time: Approximately 55 minutes. Charges/Coding Visit Charges Inpatient E&M: 19831 Init Hosp L2
--- OUTSIDE RECORDS SUMMARY | 2023-06-16 22:05 | XMS RPT_ITS | CCD ---
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 Name Role Phone YARED BURTON Unavailable Unavailable KANAA'N, NOHEMI DILCIA Unavailable Unavailabl e ASLAM, SUSHMA Unavailable Unavailable NILAJOSEPHOSWALDYARED Unavailable Unavailable ASLAM, SUSHMA Unavailable Unavailable CHRISTINA, WILBUR A Unavailable Unavailable KANAA N, NOHEMI Unavailable Unavailable Allergies Allergy Classification Reported Allergen(s) Allergy Type Date of Onset Reaction(s) Facility (2 sources) doxycycline; Translations: [DOXYCYCLINE] Drug Allergy 12-10-2014 [facility] Other [place] Repository Problems Problem Classification Problem Date Documented [...] Evaluation and management of inpatient YARED BURTON [facility] Payers Date Payer Category Payer Policy ID Unknown [id number] Summary Purpose Family History No Family History Records FoundNo Family History Records Found Advance Directives No Advanced Directives Records FoundNo Advanced Directives Records Found Additional Source Comments (unrecognized sect ion and content) No Status Records FoundNo Status Records Found INFORMATION SOURCE (unrecogn ized section and content) DATE CREATED AUTHOR AUTHOR'S ORGANIZ ATION 12/12/2017 [facility] FOR RECORDS PERTAINING TO PATIENTS WHO [...] BE BASED ON THE PRIMARY CLINICAL RECORDS. [facility] [email or web address] provides no warranty or guarantee of the accuracy or completeness of information in this document.
[2023-06-17] VITALS (12 sets, daily range): BP systolic 109–125; BP diastolic 77–87; PULSE 69–84; RESP 16–18; TEMP 36.6–37.1; O2SAT 92–97; BMI 26.2
[2023-06-17] MEDS: 0.9% Saline Lock 10 ML Syringe IV (00:02)
[2023-06-17] MEDS: 0.9% Normal Saline (1000mL) 1,000 ML 75 ML IV (00:02)
[2023-06-17 00:12] LABS: Bedside Glucose 145 mg/dL (74-106)
[2023-06-17] MEDS: Ceftriaxone 1 GM/50 ML BAG IV ×2 (00:23→21:00)
[2023-06-17] MEDS: Azithromycin 500 MG in Dextrose 5%-Water (250mL Bag) 250 ML 250 MG IV ×2 (01:02→22:30)
[2023-06-17 06:35] LABS: Absolute Lymphocyte Count 0.72 X10^3/uL (0.83-4.51); Absolute Neutrophil Count 5.8 X10^3/uL (2.0-7.7); Basophil# 0.01 X10^3/uL; Basophil% 0.1 % (0-1); Hematocrit 43.5 % (40-54); Hemoglobin 14.2 g/dL (13.0-16.5); Lymphocyte # 0.72 X10^3/ul (0.83-4.51); Lymphocyte % 10.8 % (19-41); Mean Corp Hgb Conc 32.6 g/dL (32-36); Mean Corpuscular Hgb 30.8 pg (27.0-32.0); Mean Corpuscular Volume 94.4 fL (80-94); Mean Platelet Vol. 10.9 fl (6.2-12.0); Monocyte# 0.11 X10^3/uL; Monocyte% 1.6 % (0-10); NRBC Flagged by Analyzer 0 % (0-5); Neutrophil # 5.81 X10^3/uL (2.7-7.7); Neutrophil % 87.1 % (47-70); Platelet Count 244 K/mm3 (150-450); Red Blood Count 4.61 M/mm3 (4.6-6.2); White Blood Count 6.7 K/mm3 (4.4-11.0)
[2023-06-17 07:08] LABS: Anion Gap 5 (5-15); BUN 11 mg/dL (7-18); BUN/Creat Ratio 17.2 RATIO (10-20); Calcium,Total 8.5 mg/dL (8.5-10.1); Chloride 107 mmol/L (98-107); Creatinine, Serum 0.64 mg/dL (0.70-1.30); EST Glomerular Filtration Rate 134 mL/min (>60); Est Glom Filt Rate - Afr Amer 162 mL/min (>60); Estimated Creatinine Clearance 124.19 ml/min; Glucose 120 mg/dL (74-106); Magnesium 2.1 mg/dL (1.6-2.6); Phosphorus 3.3 mg/dL (2.5-4.9); Potassium 3.9 mmol/L (3.5-5.1); Sodium Level 138 mmol/L (136-145); Thyroid Stim Hormone (TSH) 0.19 uIU/mL (0.358-3.74)
[2023-06-17] MEDS: Albuterol 2.5 MG/3 ML VIAL.NEB. INHALATION ×2 (07:29→11:28)
[2023-06-17] MEDS: Carvedilol 25 MG Tablet PO ×2 (08:57→18:06)
[2023-06-17] MEDS: Enoxaparin 40 MG/0.4 ML Syringe SC (10:28)
[2023-06-17] MEDS: Losartan Potassium 100 MG Tablet PO (10:29)
[2023-06-17] MEDS: MethylPREDNISolone 125 MG/2 ML Vial 60 MG IV (10:29)
[2023-06-17] MEDS: Influenza Virus Vac Quad 23-24 60 MCG/0.5 ML SYRINGE IM (10:39)
--- NOTE | 2023-06-17 12:39 | PN_ITS ---
Subjective Subjective Patient seen and examined. He said his breathing had improved. He denied any chest pain, palpitations, dizziness, nausea, vomiting or any other symptoms. Review of systems is otherwise negative. Objective Data Objective Data Vital Signs: Vital Signs Temp Pulse Resp BP Pulse Ox O2 Del Method O2 Flow Rate 98 F 75 18 116/80 93 Nasal Cannula 2 06/17/23 09:30 06/17/23 09:30 06/17/23 09:30 06/17/23 09:30 06/17/23 09:30 06/17/23 09:30 06/17/23 09:30 Oxygen Flow Rate (L/min) 2 Oxygen Delivery Method Nasal Cannula Weight: 187 lb 12.8 oz Body Mass Index (BMI) 26.2 Intake & Output: Intake and Output for Last 24 Hours 06/15/23 06/16/23 06/17/23 23:59 23:59 23:59 Intake Total 1000 / 1200 705 / 705 Balance 1000 / 1200 705 / 705 Lab / Micro Data 06/17/23 05:28 06/17/23 05:28 Labs: Laboratory Results - last 24 hr 06/16/23 19:05: WBC 7.1, RBC 4.83, Hgb 14.9, Hct 46.4, MCV 96.1 H, MCH 30.8, MCH C 32.1, RDW Std Deviation 46.3 H, RDW Coeff of Sanjuanita 12.9, Plt Count 245, MPV 1 0.6, Immature Gran % (Auto) 0.400, Neut % (Auto) 66.9, Lymph % (Auto) 16.5 L, [place] % (Auto) 10.7 H, Eos % (Auto) 4.8, Baso % (Auto) 0.7, Absolute Neuts (auto) 4.7, Absolute Lymphs (auto) 1.17, Nucleated RBC % 0, Sodium 140, Potassium 3.9, Chloride 108 H, Carbon Dioxide 30.0, Anion Gap 2 L, BUN 11, Creatinine 0.88, Estim Creat Clear Calc 90.32, Est GFR (MDRD) Af Amer 112, Est GFR (MDRD) Non-Af 92, BUN/Creatinine Ratio 12.5, Glucose 123 H, Calcium 8.9 06/16/23 23:54: POC Glucose 145 H 06/17/23 05:28: WBC 6.7, RBC 4.61, Hgb 14.2, Hct 43.5, MCV 94.4 H, MCH 30.8, MCHC 32.6, RDW Std Deviation 45.0 H, RDW Coeff of Sanjuanita 13.0, Plt Count 244, MPV 10.9, Immature Gran % (Auto) 0.400, Neut % (Auto) 87.1 H, Lymph % (Auto) 10.8 L, [place] % (Auto) 1.6, Eos % (Auto) 0.0, Baso % (Auto) 0.1, Absolute Neuts (auto) 5.8, Absolute Lymphs (auto) 0.72 L, Nucleated RBC % 0, Sodium 138, Potassium 3.9, Chloride 107, Carbon Dioxide 26.0, Anion Gap 5, BUN 11, Creatinine 0.64 L, Estim Creat Clear Calc 124.19, Est GFR (MDRD) Af Amer 162, Est GFR (MDRD) Non-Af 134, BUN/Creatinine Ratio 17.2, Glucose 120 H, Calcium 8.5, Phosphorus 3.3, Magnesium 2.1, TSH 0.19 L Micro: Microbiology 06/16/23 19:20 Mucosa - Nasopharyngeal SARS-CoV-2, Influenza & RSV (PCR) - Final Radiography Diagnostic Testing: Radiology Impression Chest X-Ray 06/16/23 20:00 IMPRESSION: No radiographic evidence of acute cardiopulmonary disease. Electronically Signed: Vishal Calderón MD at 20:37 EST Reading Location ID and State: [address] [place] [address] Tel , Service support , Physical Exam Const alert, oriented x3 and no apparent distress General Appearance: cooperative and well developed HEENT normocephalic, moist oral mucous membranes and oropharynx normal Eyes PERRL and EOMs intact bilaterally Neck no lymphadenopathy, supple and no JVD Lymph Lymphatic: no lymphadenopathy noted and no lymphedema noted Resp Resp Narrative: mildly diminished breath sounds bibasally, no wheezes or crackles. On 2L of oxygen by nasal canula Cardio regular rate, regular rhythm, S1 normal heart sound, S2 normal heart sound and no murmurs Peripheral Pulses: pulses 2+ throughout GI normal to inspection, nondistended, normoactive bowel sounds, soft to palpation, non-tender and non-distended Extremity normal capillary refill, no clubbing, cyanosis or edema and no calf tenderness General Extremity: no tenderness to palpation of joints or extremities Skin General Skin Exam: no breakdown Neuro CN's II-XII intact bilaterally, no focal motor deficits, no sensory deficits noted and deep tendon reflexes 2+ bilaterally Motor Exam: strength 5/5 throughout and general weakness Psych thought process normal, cooperative and affect normal Appearance: appropriate Assessment & Plan Assessment/Plan (1) Acute exacerbation of chronic obstructive pulmonary disease: (2) Respiratory insufficiency: PLAN: Plan #Hypoxia due to COPD exacerbation * patient feeling much better. His breathing has improved. * on IV solumedrol * Breathing treatments with bronchodilators * #Benign essential hypertension: on carvedilol and losartan #Hyperlipidemia: on statin #Type 2 diabetes mellitus: on dapagliflozin. ISS. Accuchecks ACHS #CAD s/p STEMI: on aspirin. #HFrEF; not in exacerbation. #History of afib: stable #History of TIA: on aspirin. #History of psoriasis: stable. DVT prophylaxis: lovenox Charges/Coding Visit Charges Inpatient E&M: 45223 Subs Hosp L2
[2023-06-17] MEDS: Ipratropium/Albuterol Sulfate 3 ML AMPUL.NEB INHALATION ×2 (14:35→19:40)
[2023-06-17] MEDS: Insulin Lispro 100 UNIT/ML INSULN.PEN SC ×2 (18:04→21:00)
[2023-06-17 18:18] LABS: Bedside Glucose 194 mg/dL (74-106)
[2023-06-17 21:22] LABS: Bedside Glucose 180 mg/dL (74-106)
[2023-06-18] VITALS (7 sets, daily range): BP systolic 119–131; BP diastolic 75–89; PULSE 61–83; RESP 16–20; TEMP 36.3–36.9; O2SAT 93–98; BMI 26.9
[2023-06-18] MEDS: Ipratropium/Albuterol Sulfate 3 ML AMPUL.NEB INHALATION ×3 (02:08→12:15)
[2023-06-18 07:08] LABS: Bedside Glucose 135 mg/dL (74-106)
[2023-06-18] MEDS: Carvedilol 25 MG Tablet PO (07:50)
--- NOTE | 2023-06-18 08:03 | DCINST_ITS ---
Discharge Instructions Diet Discharge Diet: Low fat / Low cholesterol, 1800 Calorie Control Diet and 2000 mg Sodium Diet Activity Discharge Activity: Return to Normal Activity Weight Bearing Status: Weight bearing as tolerated Dressing / Incision Call your doctor if you observe: Fever of 101 or Higher, Coldness, Increased Pain, Numbness or Tingling, Change in Color, Inability to urinate, Inability to have a bowel movement, Shortness of breath, Dizziness, Fainting spells, Swelling in the ankles, Chest pain, Prolonged hiccupping, Increased palpitations (irregular heartbeat) and Calf discomfort Follow Up Care When: IN 2 WEEKS Test Results: Test results from this visit will be discussed in further detail at your follow- up appointment, if applicable. Discharge Plan Admission Admit Date/Time: 06/16/23 21:34 Primary Reason for Your Visit: COPD exacerbation Attending Provider: Mendoza Mesa Primary Care Provider: Kendra Antunez Consulting Providers: Jd Salcedo; Marilyn Huber Discharge Orders/Prescriptions Prescriptions: New azithromycin [Zithromax] 500 mg tablet 500 mg PO DAILY 3 Days Qty: 3 0RF Rx Instructions: 2 more days prednisone 20 mg tablet 40 mg PO DAILY 5 Days Qty: 10 0RF dextromethorphan-guaifenesin [Mucinex DM] 60-1,200 mg tablet extended release 12 hr 1 tab PO Q12H 7 Days Qty: 14 0RF albuterol sulfate 90 mcg/actuation HFA aerosol inhaler 2 puff inhalation Q6H PRN (Reason: shortness of breath or wheezing) Qty: 8.5 0RF Continued losartan 100 mg tablet 100 mg PO DAILY Qty: 90 3RF carvedilol 25 mg tablet 25 mg PO BID Qty: 180 3RF Rx Instructions: must administer with a meal/food aspirin [Adult Aspirin Regimen] 81 mg tablet,delayed release (DR/EC) 81 mg PO DAILY Farxiga 10 mg tablet 10 mg PO DAILY Qty: 30 12RF Referrals / Follow Up: Kendra Antunez MD [Primary Care Provider] - Disposition Disposition (needs filled in before D/C Order can be placed): Home, Self Care
--- NOTE | 2023-06-18 08:04 | DS.PCM_ITS ---
Providers Date of Admission: 06/16/23 Date of Discharge: 06/18/23 Primary Care Physician: Dr. Kendra Antunez MD Reason For Visit: AE COPD Diagnosis Discharge Diagnosis (1) Acute exacerbation of chronic obstructive pulmonary disease: Status: Chronic Code(s): J44.1 - Chronic obstructive pulmonary disease with (acute) exacerbation (2) Respiratory insufficiency: Status: Acute Code(s): R06.89 - Other abnormalities of breathing Plan his 63-year-old gentleman was admitted with worsening cough, shortness of breath for 3 days. Earlier patient had cold, flulike symptoms lasting for 24 hours and then got short of breath. Patient has dyspnea on mild exertion. History of smoking for 40 years quit 5 years ago # Mild hypoxia due to COPD exacerbation * patient feeling much better. His breathing has improved. * on IV solumedrol * Breathing treatments with bronchodilators * Resolved. Patient does not qualify for home oxygen. 06/18/2023: Patient was given a prescription for albuterol inhaler, pulse dose of prednisone 40 mg daily for 5 days, Mucinex DM and azithromycin. #Benign essential hypertension: on carvedilol and losartan 06/18/2023: BP is controlled. #Hyperlipidemia: on statin #Type 2 diabetes mellitus: on dapagliflozin. ISS. Accuchecks ACHS #CAD s/p STEMI: on aspirin. #HFrEF; not in exacerbation. #History of afib: stable #History of TIA: on aspirin. #History of psoriasis: stable. DVT prophylaxis: lovenox Discharge medication reconciliation done. Discharge follow-up instructions completed. Discharge process discussed with the patient and all questions were answered to patient's satisfaction. Follow with PCP in 1 to 2 weeks Total time spent, exact 35 minutes on discharge meds reconciliation, examination, coordination of care with nurses and ancillary staff, review of imaging and blood test and discussion with the patient on follow-up instructions. Medications at Discharge Home Medications carvedilol 25 mg tablet 25 mg PO BID #180 tabs 11/09/22 losartan 100 mg tablet 100 mg PO DAILY blood pressure #90 tabs 11/09/22 dapagliflozin propanediol 10 mg tablet (Farxiga) 10 mg PO DAILY #30 tabs 01/19/23 aspirin 81 mg tablet,delayed release (Adult Aspirin Regimen) 81 mg PO DAILY asa 06/16/23 albuterol sulfate 90 mcg/actuation aerosol inhaler 2 puff inhalation Q6H PRN shortness of breath or wheezing #8.5 grams 06/18/23 azithromycin 500 mg tablet (Zithromax) 500 mg PO DAILY 3 days #3 tabs 06/18/23 dextromethorphan-guaifenesin ER 60 mg-1,200 mg tab,extend release,12hr (Mucinex DM) 1 tab PO Q12H 7 days #14 tabs 06/18/23 prednisone 20 mg tablet 40 mg (2 x 20 mg) PO DAILY 5 days #10 tabs 06/18/23 Physical Exam Narrative Seen and examined on the day of discharge. General: Alert, Oriented x3, Cooperative HEENT: Atraumatic, PERRLA, EOMI, Normocephalic Oral: No Gingival or Mucosal Lesions/ Ulcerations Neck: Supple, No JVD, Negative Carotid Bruits Chest wall/Lungs: Air entry diminished in bilateral lung bases. Mild expiratory rhonchi. No wheezing. Not tachypneic or hypoxic Cardiovascular: Regular rate, Regular Rhythm, Normal S1, Normal S2, No M/G/R Abdomen: Bowel Sounds Present, Soft, Non Tender, Non-Distended : No dysuria. No renal angle tenderness. No suprapubic tenderness. Extremities: No edema, Capillary Refill Less than 3 Seconds Skin: No rashes, No breakdown Musculoskeletal: No Tenderness to Palpation of Joints or Extremities Neurological: Cranial nerves II-XII grossly intact, DTR 2+/4. No acute focal neurological deficit. Psych/Mental Status: Normal Affect, Appropriate. Weight / BMI Weight Weight: 192 lb 3.889 oz Body Mass Index (BMI) 26.9 ABG / Lab / Microbiology Data 06/17/23 05:28 06/17/23 05:28 Laboratory: Laboratory Results - last 24 hr 06/17/23 17:59: POC Glucose 194 H 06/17/23 20:57: POC Glucose 180 H 06/18/23 06:48: POC Glucose 135 H Microbiology: Microbiology 06/16/23 19:20 Mucosa - Nasopharyngeal SARS-CoV-2, Influenza & RSV (PCR) - Final Meaningful Use Info Meaningful Use Diagnoses (Choose all that apply): None applicable Discharge Plan Admission Admit Date/Time: 06/16/23 21:34 Primary Reason for Your Visit: COPD exacerbation Attending Provider: Mendoza [place] Primary Care Provider: Kendra Antunez Consulting Providers: Jd Salcedo; Marilyn Huber Discharge Orders/Prescriptions Prescriptions: New azithromycin [Zithromax] 500 mg tablet 500 mg PO DAILY 3 Days Qty: 3 0RF Rx Instructions: 2 more days prednisone 20 mg tablet 40 mg PO DAILY 5 Days Qty: 10 0RF dextromethorphan-guaifenesin [Mucinex DM] 60-1,200 mg tablet extended release 12 hr 1 tab PO Q12H 7 Days Qty: 14 0RF albuterol sulfate 90 mcg/actuation HFA aerosol inhaler 2 puff inhalation Q6H PRN (Reason: shortness of breath or wheezing) Qty: 8.5 0RF Continued losartan 100 mg tablet 100 mg PO DAILY Qty: 90 3RF carvedilol 25 mg tablet 25 mg PO BID Qty: 180 3RF Rx Instructions: must administer with a meal/food aspirin [Adult Aspirin Regimen] 81 mg tablet,delayed release (DR/EC) 81 mg PO DAILY Farxiga 10 mg tablet 10 mg PO DAILY Qty: 30 12RF Referrals / Follow Up: Kendra Antunez MD [Primary Care Provider] - Disposition Disposition (needs filled in before D/C Order can be placed): Home, Self Care Charges/Coding Visit Charges Inpatient E&M: 70346 Disch Hosp >30min
--- NOTE | 2023-06-18 08:07 | CPS ---
decreased NC to 1L, RN aware
--- NOTE | 2023-06-18 09:27 | CASEMGMT ---
Addendum entered by Meenu Hidalgo 06/18/23 13:57: Spoke with pt nurse who does not feel pt needs tested for oxygen upon dc. Pt seen making laps in rivera on RA. Original Note: KIMBERLY CHILDS Assessment: Face to Face with pt for initial transition planning/care coordination assessment. KIMBERLY CHILDS introduced self and role at [facility], pt voices understanding and consents to assessment. Pt is A&O x4 and answers all questions appropriately at this time. Pt sitting up in chair on RA in no distress. Care providers, pharmacy, and demographics verified/updated. Admitting Dx: AE COPD PCP:[facility] Specialists:[facility] Preferred [facility]acy: [facility] Insurance: [employer] Prescription Benefit: yes LNOK: Niki Phillips dtr Living Arrangements: Pt lives alone in a single story home with 3-4 steps to enter. Pt reports he is I in ADL's and denies concerns at home. Transportation: Pt drives self and denies concerns with transportation. DME: denies HHC/SNF: denies hx of Pt states no concerns with going home at time of dc. Pt states no further concerns/needs. Discussed the Patient Link program with patient and patient declined. CM to follow. Advised pt to ask CM if any further question/concerns/needs arise, voices understanding. Pt Goal: Home Plan: Home [facility] HARRIS CM
[2023-06-18] MEDS: Losartan Potassium 100 MG Tablet PO (10:04)
[2023-06-18] MEDS: Enoxaparin 40 MG/0.4 ML Syringe SC (10:05)
[2023-06-18] MEDS: Insulin Lispro 100 UNIT/ML INSULN.PEN SC (12:23)
[2023-06-18 12:47] LABS: Bedside Glucose 178 mg/dL (74-106)
[2023-06-18] MEDS: 0.9% Saline Lock 10 ML Syringe IV (13:36)
== END 2023-06-18 13:59 | disposition home or self-care (01) | DRG 191 ==
LOC: ED 21:27 → MS3 22:03
PROVIDERS: Nurse Practitioner; Student in an Organized Health Care Education/Training Program; Admitting Provider Internal Medicine; Emergency Provider Student in an Organized Health Care Education/Training Program; PCP Family Medicine; Visit Provider Internal Medicine
DX: J44.1 Chronic obstructive pulmonary disease with (acute) exacerbation (principal); I42.8 Other cardiomyopathies; I50.22 Chronic systolic (congestive) heart failure; I11.0 Hypertensive heart disease with heart failure; E11.9 Type 2 diabetes mellitus without complications; I25.10 Atherosclerotic heart disease of native coronary artery without angina pectoris; E78.5 Hyperlipidemia, unspecified; L30.8 Other specified dermatitis; I25.2 Old myocardial infarction; R09.02 Hypoxemia; Z11.52 Encounter for screening for COVID-19; Z79.82 Long term (current) use of aspirin; Z79.899 Other long term (current) drug therapy; Z87.891 Personal history of nicotine dependence; Z86.73 Personal history of transient ischemic attack (TIA), and cerebral infarction without residual deficits
CPT/HCPCS: 36415; 71046; 80048; 82962; 83735; 84100; 84443; 85025; 87631; 93005; 94640; 94668; 99252; 99284; J7030; 90686; A4216; G0463; J2405

== ENCOUNTER 2023-11-28 14:53 | Inpatient (IN) | payer OTHER, SELFPAY ==
[2023-11-28 14:54] VITALS: BP 176/126; PULSE 124; RESP 20; TEMP 35.6; O2SAT 97; BMI 28.0
--- NOTE | 2023-11-28 15:08 | EX.ED.DYSGE1 ---
HPI History of Present Illness Chief Complaint: Palpitations Narrative Narrative: Patient is a 63-year-old male with a past medical history of TIA, paroxysmal atrial fibrillation not on any anticoagulation since 2018, hypertension, COPD who presented to the emergency department with a chief complaint of shortness of breath. Patient states that he has not been feeling well for approximately going on 3 weeks now. He states that he originally came down with an upper respiratory infection. He states that he followed up with urgent care today and they advised him to come here to the emergency department as he was noted to be in atrial fibrillation and they were concerned that he pitting edema in the bilateral lower extremities and concern for congestive heart failure. According the patient started on Sunday he noted that he felt very fatigued and was not feeling his normal self. Patient states that if he attempts to walk any short distance he becomes very short of breath. [facility] Medical History TIA (transient ischemic attack) (06/2019) Paroxysmal atrial fibrillation Essential (primary) hypertension Disequilibrium (06/2019) Pilomatrixoma of eyelid Lipoma of neck Former smoker Neoplasm of skin of eyelid Dysesthesia Mass of right side of neck New onset atrial fibrillation (12/05/17) COPD (chronic obstructive pulmonary disease) Non-ischemic cardiomyopathy Acute systolic CHF (congestive heart failure) (12/05/17) Nicotine dependence Fatty liver Psoriasis Psoriasiform eczema Non-STEMI (non-ST elevated myocardial infarction) (12/05/17) Atrial fibrillation with RVR (12/05/17) Home Medications ?Medication ?Instructions ?Recorded ?Last Taken ?Type dapagliflozin propanediol 10 mg 10 mg PO DAILY #30 tabs 01/19/23 11/28/23 Rx tablet (Farxiga) aspirin 81 mg tablet,delayed 81 mg PO DAILY asa 06/16/23 11/28/23 History release (Adult Aspirin Regimen) albuterol sulfate 90 mcg/actuation 2 puff inhalation Q6H PRN 06/18/23 11/28/23 Rx aerosol inhaler shortness of breath or wheezing #8.5 grams carvedilol 25 mg tablet 25 mg PO BID #180 tabs 11/16/23 11/28/23 Rx losartan 100 mg tablet 100 mg PO DAILY blood pressure #90 11/16/23 11/28/23 Rx tabs Allergy/AdvReac Type Severity Reaction Status Date / Time doxycycline Allergy Rash Verified 11/28/23 15:03 Family History Father Heart disease Myocardial infarction early 60's Hypertension Uncle Heart disease Myocardial infarction Mother Hypertension Asthma Breast cancer Diabetes Surgical History History of eye surgery History of right and left heart catheterization (12/07/17) History of herniorrhaphy Social History Smoking Status: Former smoker how long ago did patient quit smokin alcohol intake: current alcohol intake frequency: holidays/special occasions only Alcohol type: beer caffeine: Yes Type: carbonated beverages Number of servings: 1 and coffee Number of servings: 2 ROS ROS ED ROS Narrative Constitutional: Denies any fevers, chills, headaches, lightheadedness, dizziness Eyes: Denies any changes in vision double vision blurry vision Cardiovascular: Denies chest pain or palpitations Respiratory: Complains of shortness of breath as noted above denies coughing wheezing Abdomen: Denies abdominal pain nausea vomiting diarrhea : Denies any urinary symptoms Neurological: Complains of generalized fatigue as noted above denies any numbness, weakness, tingling Musculoskeletal: Denies back pain Skin: Denies rashes or lesions EXAM Physical Exam Narrative Exam Narrative: General: Patient lying in bed rest comfortably did not appear to be in acute distress Head: Atraumatic, normocephalic Eyes: PERRL bilaterally, EOMI bilateral, no conjunctival injection noted Neck:. Soft, supple, trach midline Cardiovascular: Patient had a irregular irregular rhythm with a elevated heart rate no murmurs gallops or rubs noted Respiratory: Diminished breath sounds bilaterally at the bases no wheezing noted Abdomen: No tenderness palpation, soft, nondistended Extremities: +1 pitting edema in the bilateral lower extremities, 5+5 strength noted in the bilateral upper and lower extremities Neurological: Patient was following commands knew that he was at [facility] year is 2023 Skin: Warm, dry, intact Const Vital Signs: 11/28/23 14:54 11/28/23 14:54 11/28/23 15:10 Temperature 96.0 F L Temperature Source Temporal Pulse Rate 124 H Respiratory Rate 20 H Respiratory Effort Short of Breath Labored Respiratory Pattern Normal Blood Pressure 176/126 H Blood Pressure Mean 142 Pulse Ox 97 Oxygen Delivery Method Room Air Room Air 11/28/23 15:54 11/28/23 16:20 Temperature 97.8 F Temperature Source Pulse Rate 119 H 113 H Respiratory Rate 17 21 H Respiratory Effort Respiratory Pattern Blood Pressure 147/114 H 144/123 H Blood Pressure Mean 125 130 Pulse Ox 94 93 Oxygen Delivery Method Room Air MDM MDM MDM Narrative Medical decision making narrative: Patient is a 63-year-old male who presents to the emerged part with chief complaint of dyspnea on exertion and atrial fibrillation. Once again the patient is not anticoagulated currently. On the differential diagnose includes but limited to atrial fibrillation with rapid ventricular response, ACS, pneumonia, hypothyroidism, hyperthyroidism, CHF. Once workup is obtained reviewed he will be reevaluated. Will hold off on IV fluids for now as there is concern for hypervolemic state and he is noted be hypertensive. Patient's CBC reviewed and showed no evidence of leukocytosis white blood count normal at 8.8, hemoglobin was 14.9, platelet count normal at 258. Patient sodium normal 140, potassium was 3.7, creatinine normal at 0.96. Patient's troponin was normal at 14, EKG reviewed and showed atrial fibrillation with a rapid ventricular response of 125 bpm . Patient's proBNP elevated at 706 and TSH normal at 1.11. Patient's x-ray of his chest was reviewed and showed mild cardiomegaly with evidence of vascular congestion and mild CHF there is blunting of both costophrenic angles noted. Patient was given a dose of IV Lasix 40 mg. At this point time do believe the patient warrants admission to the hospital for further evaluation management of his recurrent atrial fibrillation with rapid ventricular response in the setting of congestive heart failure. Did discuss case with hospitalist Dr. Huddleston who is recommending after chart review giving the patient 5 mg of Eliquis as well which was ordered. Patient was notified that he will be admitted to the hospital with all question concerns answered. There is no identifiable source of infection at this point time therefore do not feel that antibiotics are warranted do believe that his tachycardia and his tachypnea and shortness of breath is secondary to his CHF exacerbation. Lab Data Labs: Laboratory Results - last 24 hr 11/28/23 14:55 WBC 8.8 RBC 4.92 Hgb 14.9 Hct 47.9 MCV 97.4 H MCH 30.3 MCHC 31.1 L RDW Std Deviation 47.5 H RDW Coeff of Sanjuanita 13.3 Plt Count 258 MPV 11.5 Immature Gran % (Auto) 0.500 Neut % (Auto) 71.6 H Lymph % (Auto) 18.0 L Wheeler % (Auto) 7.8 Eos % (Auto) 1.1 Baso % (Auto) 1.0 Absolute Neuts (auto) 6.3 Absolute Lymphs (auto) 1.58 Nucleated RBC % 0 Sodium 140 Potassium 3.7 Chloride 105 Carbon Dioxide 30.0 Anion Gap 5 BUN 15 Creatinine 0.96 Estim Creat Clear Calc 89.88 Est GFR (MDRD) Af Amer 102 Est GFR (MDRD) Non-Af 84 BUN/Creatinine Ratio 15.7 Glucose 116 H Calcium 8.9 Troponin I High Sens 14 B-Natriuretic Peptide 706.5 H TSH 1.110 Radiography Diagnostic Testing: Clinical Impression(s) from Imaging Studies Chest X-Ray 11/28/23 15:10 IMPRESSION: Mild cardiomegaly with evidence of a vascular congestion and mild CHF. There is blunting of both costophrenic angles posteriorly. Electronically Signed: Tanmay Zheng MD at 15:35 EDT , Discharge Plan Triage Chief Complaint: Palpitations ED Provider: Isaac Potter Dx/Rx/DC Orders Clinical Impression: Atrial fibrillation with rapid ventricular response, Congestive heart failure Prescriptions: No Action aspirin [Adult Aspirin Regimen] 81 mg tablet,delayed release (DR/EC) 81 mg PO DAILY albuterol sulfate 90 mcg/actuation HFA aerosol inhaler 2 puff inhalation Q6H PRN (Reason: shortness of breath or wheezing) Qty: 8.5 0RF Farxiga 10 mg tablet 10 mg PO DAILY Qty: 30 12RF carvedilol 25 mg tablet 25 mg PO BID Qty: 180 3RF Rx Instructions: must administer with a meal/food losartan 100 mg tablet 100 mg PO DAILY Qty: 90 3RF Primary Care Provider: Kendra Antunez Referrals: Kendra Antunez MD [Primary Care Provider] - Print Language: Cameroonian
--- NOTE | 2023-11-28 15:10 | RAD_ITS ---
STUDY: X-RAY CHEST REASON FOR EXAM: Male, 63 years old. Chest pain. Shortness of breath and dizziness. Swelling of the lower extremities. TECHNIQUE: PA and lateral views of the chest. COMPARISON: Comparison is made with prior study dated June 16, 2023. FINDINGS: EKG electrodes are seen. Mild degree of vascular congestion and CHF. Blunting of both costophrenic angles posteriorly. There is mild cardiac enlargement. Normal mediastinum and rudi. Normal visualized pulmonary arteries. There is atherosclerotic tortuosity of the aortic arch and descending thoracic aorta. There is demineralization of the osseous structures. Normal visualized ribs, clavicles, and shoulders. There is no demonstrated abnormality of the visualized soft tissue structures of the upper abdomen. RAD/Chest PA and Lateral IMPRESSION: Mild cardiomegaly with evidence of a vascular congestion and mild CHF. There is blunting of both costophrenic angles posteriorly. Electronically Signed: Tanmay Zheng MD at 15:35 EDT ,
[2023-11-28 15:18] LABS: Absolute Lymphocyte Count 1.58 X10^3/uL (0.83-4.51); Absolute Neutrophil Count 6.3 X10^3/uL (2.0-7.7); Basophil# 0.09 X10^3/uL; Eosinophils% 1.1 % (0-5); Hematocrit 47.9 % (40-54); Hemoglobin 14.9 g/dL (13.0-16.5); Lymphocyte # 1.58 X10^3/ul (0.83-4.51); Mean Corp Hgb Conc 31.1 g/dL (32-36); Mean Corpuscular Hgb 30.3 pg (27.0-32.0); Mean Corpuscular Volume 97.4 fL (80-94); Mean Platelet Vol. 11.5 fl (6.2-12.0); Monocyte# 0.68 X10^3/uL; Monocyte% 7.8 % (0-10); NRBC Flagged by Analyzer 0 % (0-5); Neutrophil # 6.27 X10^3/uL (2.7-7.7); Neutrophil % 71.6 % (47-70); Platelet Count 258 K/mm3 (150-450); RBC Distribution Width CV 13.3 % (11.6-14.6); RBC Distribution Width SD 47.5 fl (35.1-43.9); Red Blood Count 4.92 M/mm3 (4.6-6.2); White Blood Count 8.8 K/mm3 (4.4-11.0)
[2023-11-28 15:38] LABS: BNP,B-Type NATRIURETIC PEPTIDE 706.5 pg/mL (0-100)
[2023-11-28 15:43] LABS: Anion Gap 5 (5-15); BUN 15 mg/dL (7-18); BUN/Creat Ratio 15.7 RATIO (10-20); Calcium,Total 8.9 mg/dL (8.5-10.1); Chloride 105 mmol/L (98-107); Creatinine, Serum 0.96 mg/dL (0.70-1.30); EST Glomerular Filtration Rate 84 mL/min (>60); Est Glom Filt Rate - Afr Amer 102 mL/min (>60); Estimated Creatinine Clearance 89.88 ml/min; Glucose 116 mg/dL (74-106); Potassium 3.7 mmol/L (3.5-5.1); Sodium Level 140 mmol/L (136-145); Troponin-I HS (w/2H Reflex) 14 pg/mL (3.0-78.0)
[2023-11-28 15:54] VITALS: BP 147/114; PULSE 119; RESP 17; O2SAT 94
[2023-11-28] MEDS: Furosemide 40 MG/4 ML Vial IV ×2 (16:11→20:59)
[2023-11-28 16:20] VITALS: BP 144/123; PULSE 113; RESP 21; TEMP 36.6; O2SAT 93
--- NOTE | 2023-11-28 16:39 | HP.PCM.HOS_ITS ---
HPI - General General Date of Admission: 11/28/23 Date of Service: 11/28/23 Chief Complaint: Shortness of breath HPI Narrative YARY CAVAZOS, is a 63 M who presented to the emergency department at [facility] on 11/28/2023 with a chief complaint of shortness of breath. He reported he had not been feeling well for approximately 3 weeks now. He initially had an upper respiratory infection which has resolved but still felt short of breath and noted he was having some increased swelling. He also reported about a 10 pound weight gain. He went to the urgent care today and they advised him to come to the emergency department as they noted him to be in atrial fibrillation and that he had edema in bilateral lower extremities and they were concerned about congestive heart failure. The patient reported that his symptoms worsened significantly on Sunday and he felt very fatigued and was not himself. He also indicated that any exertion causes significant dyspnea. He has not been able to lie flat to sleep either. Patient states he eats out on a regular basis and does not watch his sodium or fluid intake. He has a known nonischemic cardiomyopathy and his last echocardiogram was done on 01/10/2023 at which time he had an EF of 25% and stage I diastolic function. He has not seen cardiology since 11/09/2022. He does have a known history of paroxysmal atrial fibrillation and has not been on anticoagulation however his last cardiology visit indicated that if he had any recurrence of atrial fibrillation he would need to go back on anticoagulation due to his history of TIA. Vital signs on presentation showed a temperature of 96.0, heart rate 124, respiratory rate 20, blood pressure was 176/126 and pulse ox was 97% on room air. Repeat blood pressure was 147/114. His CBC was unremarkable. His chemistry panel was unremarkable other than mild hyperglycemia with a glucose of 116 nonfasting. Troponin were 14 and 14 respectively. BNP was markedly elevated at 706.5. TSH was 1.11. Chest x-ray is consistent with volume overload. EKG showed atrial fibrillation. No ST-T wave changes consistent with acute ischemia were noted. [facility] Medical History Anxiety Depression Atrial fibrillation Chest pain Hypertension Migraines TIA (transient ischemic attack) TIA (transient ischemic attack) (06/2019) Paroxysmal atrial fibrillation Essential (primary) hypertension Disequilibrium (06/2019) Pilomatrixoma of eyelid Lipoma of neck Former smoker Neoplasm of skin of eyelid Dysesthesia Mass of right side of neck New onset atrial fibrillation (12/05/17) COPD (chronic obstructive pulmonary disease) Non-ischemic cardiomyopathy Acute systolic CHF (congestive heart failure) (12/05/17) Nicotine dependence Fatty liver Psoriasis Psoriasiform eczema Non-STEMI (non-ST elevated myocardial infarction) (12/05/17) Atrial fibrillation with RVR (12/05/17) Home Medications ?Medication ?Instructions ?Recorded ?Last Taken ?Type dapagliflozin propanediol 10 mg 10 mg PO DAILY #30 tabs 01/19/23 11/28/23 Rx tablet (Farxiga) aspirin 81 mg tablet,delayed 81 mg PO DAILY asa 06/16/23 11/28/23 History release (Adult Aspirin Regimen) albuterol sulfate 90 mcg/actuation 2 puff inhalation Q6H PRN 06/18/23 11/28/23 Rx aerosol inhaler shortness of breath or wheezing #8.5 grams carvedilol 25 mg tablet 25 mg PO BID #180 tabs 11/16/23 11/28/23 Rx losartan 100 mg tablet 100 mg PO DAILY blood pressure #90 11/16/23 11/28/23 Rx tabs Allergy/AdvReac Type Severity Reaction Status Date / Time doxycycline Allergy Rash Verified 11/28/23 15:03 Family History Father Heart disease Myocardial infarction early 60's Hypertension Uncle Heart disease Myocardial infarction Mother Hypertension Asthma Breast cancer Diabetes Surgical History History of eye surgery History of right and left heart catheterization (12/07/17) History of herniorrhaphy Social History (Updated 11/28/23 @ 18:[address] Keara Orellana DO) Smoking Status: Former smoker how long ago did patient quit smokin alcohol intake: never substance use type: does not use caffeine: Yes Type: carbonated beverages Number of servings: 1 and coffee Number of servings: 2 ROS Constitutional Constitutional: Reports malaise and weakness; Denies anorexia, change in weight, chills, fatigue, fever(s), night sweats or other Eyes Eyes: Reports other Details: clear drainage ; Denies blurry vision, change in eye color, change in vision, discharge from eye(s), double vision, erythema, eye pain or loss of vision ENT HEENT: Denies abnormal hearing, dysphagia, ear pain, epistaxis, headache(s), hearing loss, nasal congestion, nasal discharge, post nasal drip, sinus pressure, sore throat or other Respiratory/Chest Respiratory/Chest: Reports dyspnea and shortness of breath with exertion; Denies cough, excessive phlegm production, hemoptysis, productive cough, shortness of breath at rest, wheezing or other Gastrointestinal Gastrointestinal: Denies abdominal pain, coffee ground emesis, constipation, diarrhea, dyspepsia, hematemesis, hematochezia, loose stools, melena, nausea, vomiting or other Genitourinary Genitourinary: Denies burning urination, difficulty urinating, dysuria, hematuria, nocturia, urinary frequency, urinary hesitancy, urinary incontinence, urinary urgency or other Musculoskeletal Musculoskeletal: Denies arthralgias, back pain, joint pain, joint stiffness, joint swelling, myalgias, neck pain or other Neurologic Neurologic: Denies abnormal gait, abnormal speech, confusion, disequilibrium, dizziness, focal weakness, headache(s), numbness, paresthesias, seizure-like activity, seizures, syncope, tingling, tremor(s) or other Psychiatric Psychiatric: Denies anxiety, depression, homicidal ideation, suicidal ideation or other Endocrine Endocrinology: Denies change in body appearance, cold intolerance, excessive sweating, heat intolerance, polydipsia, polyuria or other Hematologic/Lymphatic Hematologic/Lymphatic: Denies anemia, easy bleeding, easy bruising, lymphadenopathy or other Allergic/Immunologic Allergic/Immunologic: Denies rhinitis, hives, eczemia, asthma or other Vital Signs Vital Signs Vital Signs: 11/28/23 14:54 11/28/23 14:54 11/28/23 15:10 Temperature 96.0 F L Temperature Source Temporal Pulse Rate 124 H Respiratory Rate 20 H Respiratory Effort Short of Breath Labored Respiratory Pattern Normal Blood Pressure 176/126 H Blood Pressure Mean 142 Pulse Ox 97 Oxygen Delivery Method Room Air Room Air 11/28/23 15:54 11/28/23 16:20 Temperature 97.8 F Temperature Source Pulse Rate 119 H 113 H Respiratory Rate 17 21 H Respiratory Effort Respiratory Pattern Blood Pressure 147/114 H 144/123 H Blood Pressure Mean 125 130 Pulse Ox 94 93 Oxygen Delivery Method Room Air Weight Weight: 91.4 kg Body Mass Index (BMI) 28.0 Physical Exam Const alert, oriented x3, no apparent distress and well nourished Constitutional Narrative: Overweight, upper middle-aged, white male sitting up in bed, currently appears comfortable, nontoxic-appearing General Appearance: cooperative HEENT normocephalic, head/scalp atraumatic and moist oral mucous membranes HEENT Narrative: Dentures in place, Mallampati 2, no thrush Eyes PERRL, EOMs intact bilaterally and conjunctivae normal Eyes Narrative: No scleral icterus Neck no lymphadenopathy and supple Neck Narrative: Positive JVD, trachea midline, no thyroid enlargement Resp no retractions, no use of accessory muscles and No clear to auscultation bilaterally Resp Narrative: Diminished with crackles at bases bilaterally, mild tachypnea Auscultation: crackles; Negative for rhonchi or wheezes Cardio S1 normal heart sound, S2 normal heart sound, no murmurs, no rub, no gallops and no clicks; Negative for no JVD Cardio Narrative: Irregular irregular rhythm, tachycardic GI normal to inspection, nondistended, normoactive bowel sounds, soft to palpation and non-tender Extremity Extremity Narrative: Trace bilateral lower extremity pitting edema, no cyanosis or clubbing Skin no rashes or lesions noted, no wounds, skin turgor normal, no jaundice, no petechiae and no mottling Neuro oriented x3, moves all extremities and no focal motor deficits Speech: speech normal Psych affect normal Psych Narrative: Eye contact is good, patient interacts appropriately and answers all questions appropriately Results Lab / Micro Data 11/28/23 14:55 11/28/23 14:55 Labs: Laboratory Results - last 24 hr 11/28/23 14:55: WBC 8.8, RBC 4.92, Hgb 14.9, Hct 47.9, MCV 97.4 H, MCH 30.3, M CHC 31.1 L, RDW Std Deviation 47.5 H, RDW Coeff of Sanjuanita 13.3, Plt Count 258, MPV 11.5, Immature Gran % (Auto) 0.500, Neut % (Auto) 71.6 H, Lymph % (Auto) 18.0 L, Whiteside % (Auto) 7.8, Eos % (Auto) 1.1, Baso % (Auto) 1.0, Absolute Neuts (auto) 6.3, Absolute Lymphs (auto) 1.58, Nucleated RBC % 0, Sodium 140, Potassium 3.7, Chloride 105, Carbon Dioxide 30.0, Anion Gap 5, BUN 15, Creatinine 0.96, Estim Creat Clear Calc 89.88, Est GFR (MDRD) Af Amer 102, Est GFR (MDRD) Non-Af 84, BUN/Creatinine Ratio 15.7, Glucose 116 H, Calcium 8.9, Troponin I High Sens 14, B-Natriuretic Peptide 706.5 H, TSH 1.110 Imaging Radiology Impression Chest X-Ray 11/28/23 15:10 IMPRESSION: Mild cardiomegaly with evidence of a vascular congestion and mild CHF. There is blunting of both costophrenic angles posteriorly. Electronically Signed: Tanmay Zheng MD at 15:35 EDT , Assessment & Plan Assessment/Plan (1) Hypoxia: (2) Fatigue: QUALIFIERS: Fatigue type: chronic, unspecified Qualified Code(s): R53.82 - Chronic fatigue, unspecified (3) Paroxysmal atrial fibrillation: (4) Acute on chronic heart failure with reduced ejection fraction (HFrEF, <= 40%): PLAN: Plan Exertional hypoxia secondary to acute on chronic heart failure with reduced ejection fraction -Last echocardiogram was done on 01/10/2023 at which time he had an EF of 25% and stage I diastolic dysfunction -Repeat echocardiogram -Scheduled Lasix 40 mg 3 times daily -Continue home Farxiga, losartan, and carvedilol -Daily weights -Strict I's and O's -Fluid restriction to 1750 cc daily -Sodium restricted diet -Will need ambulatory pulse ox prior to discharge Paroxysmal atrial fibrillation with rapid ventricular rate -Continue home Coreg -Would theoretically avoid Cardizem with depressed EF -If home medications do not can control rate may need to consider amiodarone bolus and drip -Patient has not been anticoagulated but does have a history of TIA since he has recurrent A-fib will start Eliquis 5 mg twice daily Fatigue -Likely related to the above -Continue to monitor and should improve once heart rate and volume status improved History of nonischemic cardiomyopathy -Will need outpatient follow-up--> has been about 1 year since his previous appointment -Continue home carvedilol -Continue home Farxiga -Continue home losartan -Consider addition of Aldactone versus transition to Entresto -May need to be evaluated for ICD if EF is still poor Hypertension -Continue home losartan -Continue home carvedilol -Monitor blood pressure -Goal blood pressure is less than 130/80 History of TIA -Continue aspirin -Will start Eliquis History of tobacco abuse -Anticipate patient has COPD at baseline -Does not appear he is ever had PFTs here -Would recommend outpatient pulmonary referral after discharge -Recommend ongoing tobacco cessation -As needed albuterol at home will hold now due to a RVR DVT prophylaxis -Apixaban 5 mg p.o. twice daily CODE STATUS -Full code as verified at the time of admission Charges/Coding Visit Charges Inpatient E&M: 41404 Init Hosp L3
[2023-11-28] MEDS: APIXABAN 5 MG TABLET PO (16:48)
[2023-11-28] MEDS: Metoprolol Tartrate 5 MG/5 ML Vial IV (16:49)
[2023-11-28 17:00] VITALS: BP 161/119; PULSE 100; RESP 20; O2SAT 93
[2023-11-28 17:13] LABS: Reflex Troponin-HS? (from REC) Y
[2023-11-28 17:25] VITALS: BMI 26.9
--- NOTE | 2023-11-28 17:25 | ECHOD_ITS ---
Reason For Study: AFIB/FLUTTER Procedure This was a 2D Doppler, Color Flow transthoracic echocardiogram. Exam performed in department. Left Ventricle Mildly dilated left ventricle. Severe LV systolic dysfunction with global hypokinesis. Estimated LVEF 20 to 25%. Right Ventricle Normal right ventricle. Atria The left atrium is moderately enlarged. The right atrium is mildly enlarged. Mitral Valve Trivial mitral valve insufficiency. Tricuspid Valve Trivial tricuspid valve insufficiency. Normal pulmonary artery pressure. Aortic Valve Trisinus/trileaflet aortic valve. Pulmonic Valve The pulmonic valve is not well visualized. Great Vessels Mildly dilated aortic root. Pericardium/Pleural No pericardial effusion. MMode/2D Measurements & Calculations LVIDd: 5.4 cm IVSd: 0.95 cm Ao root diam: 4.0 cm LVIDs: 4.4 cm LVPWd: 1.0 cm RVDd: 3.4 cm FS: 18.3 % LAV(MOD-bp): 90.9 ml LVAd ap4: 36.1 cm2 SV(MOD-sp4): 38.3 ml LAV(MOD-bp) Indexed: 39.5 ml/m2 LVLd ap4: 8.9 cm LAV(MOD-sp2): 89.6 ml EDV(MOD-sp4): 122.6 ml LAV(MOD-sp4): 89.2 ml EDV(sp4-el): 124.1 ml LVAs ap4: 28.1 cm2 LVLs ap4: 8.1 cm ESV(MOD-sp4): 84.3 ml ESV(sp4-el): 83.4 ml EF(MOD-sp4): 31.2 % EF(sp4-el): 32.9 % SV(sp4-el): 40.8 ml LA A4 area: 26.8 cm2 LA dimension(2D): 4.7 cm RA A4 area: 20.9 cm2 TAPSE: 1.7 cm Doppler Measurements & Calculations MV E max nela: 65.0 cm/sec Ao V2 max: 90.4 cm/sec LV V1 max: 71.8 cm/sec Ao max P.3 mmHg LV V1 max P.1 mmHg Ao V2 mean: 63.3 cm/sec LV V1 mean P.1 mmHg Ao mean P.7 mmHg LV V1 mean: 48.0 cm/sec Ao V2 VTI: 12.9 cm LV V1 VTI: 10.1 cm AV (velocity ratio): 0.78 PA V2 max: 61.3 cm/sec TR max nela: 231.6 cm/sec PA V2 mean: 46.4 cm/sec TR max P.5 mmHg ECHO/Echo Complete Interpretation Summary Mildly dilated left ventricle. Severe LV systolic dysfunction with global hypokinesis. Estimated LVEF 20 to 25 %. The left atrium is moderately enlarged. The right atrium is mildly enlarged. Mildly dilated aortic root. Ordering Physician: Keara Orellana Referring Physician: Kendra Antunez Performed By: Ellie Ramírez RDCS, RVT
[2023-11-28 17:30] VITALS: BP 159/114; PULSE 96; RESP 20; TEMP 36.9; O2SAT 93
[2023-11-28 17:38] LABS: Troponin-I HS 14 pg/mL (3.0-78.0)
[2023-11-28] MEDS: Carvedilol 25 MG Tablet PO (18:45)
[2023-11-28] MEDS: Atorvastatin Calcium 80 MG Tablet PO (20:59)
[2023-11-28] MEDS: Spironolactone 25 MG Tablet 12.5 MG PO (20:59)
[2023-11-28 21:00] VITALS: BP 140/107; PULSE 105; RESP 18; TEMP 36.7; O2SAT 93
[2023-11-29 03:00] VITALS: BP 144/98; PULSE 97; RESP 18; TEMP 36; O2SAT 93
[2023-11-29] MEDS: Furosemide 40 MG/4 ML Vial IV ×3 (05:33→19:47)
[2023-11-29] MEDS: 0.9% Saline Lock 10 ML Syringe IV ×2 (05:34→13:43)
[2023-11-29 05:52] VITALS: BMI 26.9
[2023-11-29 06:11] LABS: Absolute Lymphocyte Count 1.63 X10^3/uL (0.83-4.51); Absolute Neutrophil Count 5.7 X10^3/uL (2.0-7.7); Basophil# 0.07 X10^3/uL; Basophil% 0.8 % (0-1); Eosinophil# 0.11 X10^3/uL; Eosinophils% 1.3 % (0-5); Hematocrit 46.2 % (40-54); Hemoglobin 14.7 g/dL (13.0-16.5); Lymphocyte # 1.63 X10^3/ul (0.83-4.51); Lymphocyte % 19.5 % (19-41); Mean Corp Hgb Conc 31.8 g/dL (32-36); Mean Corpuscular Hgb 30.1 pg (27.0-32.0); Mean Corpuscular Volume 94.5 fL (80-94); Mean Platelet Vol. 10.8 fl (6.2-12.0); Monocyte# 0.78 X10^3/uL; Monocyte% 9.3 % (0-10); NRBC Flagged by Analyzer 0 % (0-5); Neutrophil # 5.73 X10^3/uL (2.7-7.7); Neutrophil % 68.7 % (47-70); Platelet Count 254 K/mm3 (150-450); RBC Distribution Width CV 13.2 % (11.6-14.6); RBC Distribution Width SD 45.6 fl (35.1-43.9); Red Blood Count 4.89 M/mm3 (4.6-6.2); White Blood Count 8.4 K/mm3 (4.4-11.0)
[2023-11-29 07:35] LABS: ALB/GLOB Ratio 0.9 RATIO (0.9-2.4); AST(SGOT) 28 U/L (15-37); Alanine Aminotransfer ALT/SGPT 65 U/L (16-61); Albumin, Serum 3.4 g/dL (3.2-5.0); Alkaline Phosphatase 53 U/L (45-117); Anion Gap 5 (5-15); BUN 13 mg/dL (7-18); BUN/Creat Ratio 15.5 RATIO (10-20); Calcium,Total 9.4 mg/dL (8.5-10.1); Chloride 100 mmol/L (98-107); Cholesterol 193 mg/dL (200); Creatinine, Serum 0.84 mg/dL (0.70-1.30); EST Glomerular Filtration Rate 98 mL/min (>60); Est Glom Filt Rate - Afr Amer 119 mL/min (>60); Estimated Creatinine Clearance 94.62 ml/min; Globulin 3.8 g/dL (2.2-4.2); Glucose 99 mg/dL (74-106); High Density Lipoprotein 31 mg/dL; Magnesium 2.2 mg/dL (1.6-2.6); Phosphorus 3.7 mg/dL (2.5-4.9); Potassium 3.6 mmol/L (3.5-5.1); Protein, Total 7.2 g/dL (6.4-8.2); Sodium Level 140 mmol/L (136-145); Triglycerides 147 mg/dL; Very Low Density Lipoprotein 29 mg/dL (5-40)
--- NOTE | 2023-11-29 08:04 | PN.HOSP_ITS ---
Reason for Visit Reason for Visit: Diagnoses Paroxysmal atrial fibrillation (11/28/23) Acute on chronic systolic (congestive) heart failure (11/28/23) Hypoxemia (11/28/23) Chronic fatigue, unspecified (11/28/23) Subjective Subjective Breathing better, but has not exerted himself. Objective Data Objective Data Vital Signs: Vital Signs Temp Pulse Resp BP Pulse Ox O2 Del Method 36.0 C L 97 18 144/98 H 93 Room Air 11/29/23 03:00 11/29/23 03:00 11/29/23 03:00 11/29/23 03:00 11/29/23 03:00 11/29/23 03:00 Oxygen Delivery Method Room Air Weight: 87.8 kg Body Mass Index (BMI) 26.9 Intake & Output: Intake and Output for Last 24 Hours 11/27/23 11/28/23 11/29/23 23:59 23:59 23:59 Intake Total 270 / 270 Output Total 730 / 2730 2800 / 2800 Balance -730 / -2580 -2530 / -2530 Lab / Micro Data 11/29/23 05:55 11/29/23 05:55 Labs: Laboratory Results - last 24 hr 11/28/23 14:55: WBC 8.8, RBC 4.92, Hgb 14.9, Hct 47.9, MCV 97.4 H, MCH 30.3, M CHC 31.1 L, RDW Std Deviation 47.5 H, RDW Coeff of Sanjuanita 13.3, Plt Count 258, MPV 11.5, Immature Gran % (Auto) 0.500, Neut % (Auto) 71.6 H, Lymph % (Auto) 18.0 L, [place] % (Auto) 7.8, Eos % (Auto) 1.1, Baso % (Auto) 1.0, Absolute Neuts (auto) 6.3, Absolute Lymphs (auto) 1.58, Nucleated RBC % 0, Sodium 140, Potassium 3.7, Chloride 105, Carbon Dioxide 30.0, Anion Gap 5, BUN 15, Creatinine 0.96, Estim Creat Clear Calc 89.88, Est GFR (MDRD) Af Amer 102, Est GFR (MDRD) Non-Af 84, BUN/Creatinine Ratio 15.7, Glucose 116 H, Calcium 8.9, Troponin I High Sens 14, B-Natriuretic Peptide 706.5 H, TSH 1.110 11/28/23 16:55: Troponin I High Sens 14 11/29/23 05:55: WBC 8.4, RBC 4.89, Hgb 14.7, Hct 46.2, MCV 94.5 H, MCH 30.1, M CHC 31.8 L, RDW Std Deviation 45.6 H, RDW Coeff of Sanjuanita 13.2, Plt Count 254, MPV 10.8, Immature Gran % (Auto) 0.400, Neut % (Auto) 68.7, Lymph % (Auto) 19.5, [place] % (Auto) 9.3, Eos % (Auto) 1.3, Baso % (Auto) 0.8, Absolute Neuts (auto) 5.7, Absolute Lymphs (auto) 1.63, Nucleated RBC % 0, Sodium 140, Potassium 3.6, Chloride 100, Carbon Dioxide 35.0 H, Anion Gap 5, BUN 13, Creatinine 0.84, Estim Creat Clear Calc 94.62, Est GFR (MDRD) Af Amer 119, Est GFR (MDRD) Non-Af 98, BUN/Creatinine Ratio 15.5, Glucose 99, Calcium 9.4, Phosphorus 3.7, Magnesium 2.2, Total Bilirubin 1.00, AST 28, ALT 65 H, Alkaline Phosphatase 53, Total Protein 7.2, Albumin 3.4, Globulin 3.8, Albumin/Globulin Ratio 0.9, Triglycerides 147, Cholesterol 193, LDL Cholesterol 133 H, VLDL Cholesterol 29, HDL Cholesterol 31 L Radiography Diagnostic Testing: Radiology Impression Chest X-Ray 11/28/23 15:10 IMPRESSION: Mild cardiomegaly with evidence of a vascular congestion and mild CHF. There is blunting of both costophrenic angles posteriorly. Electronically Signed: Tanmay Zheng MD at 15:35 EDT , Physical Exam Const alert and no apparent distress HEENT head/scalp atraumatic and moist oral mucous membranes Neck no lymphadenopathy Resp normal respiratory effort, no retractions, no use of accessory muscles and clear to auscultation bilaterally Cardio regular rate, regular rhythm, S1 normal heart sound and S2 normal heart sound GI normal to inspection, nondistended, normoactive bowel sounds, soft to palpation, non-tender, non-distended and hepatosplenomegaly Extremity normal to inspection and no clubbing, cyanosis or edema Neuro Sensorium / Orientation: awake and alert Assessment & Plan Assessment/Plan (1) Hypoxia: (2) Fatigue: QUALIFIERS: Fatigue type: chronic, unspecified Qualified Code(s): R53.82 - Chronic fatigue, unspecified (3) Paroxysmal atrial fibrillation: (4) Acute on chronic heart failure with reduced ejection fraction (HFrEF, <= 40%): PLAN: Plan Acute HFrEF * echocardiogram was done on 01/10/2023 at which time he had an EF of 25% and stage I diastolic dysfunction. Follow up 11/28 shows an EF 20-25%, LAE (moderate), HERACLIO (mild) * Furosemide 40 mg 3 times daily * Continue home Farxiga, losartan, and carvedilol * Daily weights * Strict I's and O's * Fluid restriction to 1750 cc daily, Sodium restricted diet Paroxysmal atrial fibrillation with rapid ventricular rate * Continue home Coreg * Would theoretically avoid Cardizem with depressed EF * If home medications do not can control rate may need to consider amiodarone bolus and drip * Patient has not been anticoagulated but does have a history of TIA since he has recurrent A-fib will start Eliquis 5 mg twice daily Chronic conditions: * Hypertension-Continue home losartan-Continue home carvedilol-Monitor blood pressure-Goal blood pressure is less than 130/80 * History of TIA-Continue aspirin-Will start Eliquis * History of tobacco abuse-Anticipate patient has COPD at baseline-Does not appear he is ever had PFTs here-Would recommend outpatient pulmonary referral after discharge-Recommend ongoing tobacco cessation-As needed albuterol at home will hold now due to a RVR VTE prophylaxis: not indicted as patient is already on apixaban. CODE STATUS: Full Charges/Coding Visit Charges Inpatient E&M: 86990 Subs Hosp L2
[2023-11-29 09:00] VITALS: BP 118/83; PULSE 76; RESP 16; TEMP 36.8; O2SAT 93
[2023-11-29] MEDS: Empagliflozin 25 MG Tablet PO (09:43)
[2023-11-29] MEDS: APIXABAN 5 MG TABLET PO ×2 (09:43→19:46)
[2023-11-29] MEDS: Aspirin E.C. 81 MG Tablet PO (09:43)
[2023-11-29] MEDS: Spironolactone 25 MG Tablet 12.5 MG PO ×2 (09:44→19:46)
[2023-11-29] MEDS: Carvedilol 25 MG Tablet PO ×2 (09:44→19:46)
[2023-11-29] MEDS: Losartan Potassium 100 MG Tablet PO (09:44)
--- NOTE | 2023-11-29 10:49 | CASEMGMT ---
KIMBERLY CHILDS Assessment Face to Face with patient for initial transition planning/care coordination assessment. KIMBERLY CHILDS introduced self and role at [facility], pt voices understanding. Pt is A&Ox4 and is resting comfortably in bed and is calm. Care providers, pharmacy, and demographics verified. Admitting dx: HF PCP: Kendra Antunez Specialists: ELAINE Preferred [facility]acy: [facility] Insurance: [employer] Prescription Benefit: Yes LNOK: Jeanne Phillips (WILLIAN), Corinna Sharp (WILLIAN) Living Arrangements: Pt lives alone in a single story home with a basement and 3-4 steps to enter ADLs/IADLs: Ind Transportation: Self, family, friends, denies concerns. DME: BP Monitor. Pt is currently 93% on RA and may qualify for home oxygen. A verbal list of local in network DME companies provided to the pt at this time, pt prefers [facility] HHC/SNF: Denies Hx or needs Pt?s goal: Home Plan: home no needs. No PT/ OT ordered. Per the MD, the plan is to diurese and have an echo completed. Pt denies the need for HHC or OP Tx. Pt states that he feels safe discharging home with no additional needs at this time and denies further questions or concerns. Elli Huynh RN, CM
[2023-11-29 14:00] VITALS: PULSE 101
[2023-11-29 15:24] VITALS: BP 107/74; PULSE 56; RESP 16; TEMP 36.8; O2SAT 93
--- NOTE | 2023-11-29 16:17 | CHAPLAIN ---
Type of Pastoral Visit _x__ Initial Visit ___ Follow-up Visit ___ On-call Visit ___ General Patient Visit ___ Spiritual Assessment ___ Family Conference ___ Bereavement ___ Rapid Response ___ Code Blue ___ Other (describe below) Pastoral Care Referral From _x__ Patient ___ Family ___ Nurse ___ Physician ___ Distribution Operations Manager ___ Shipper And Receiving ___ Other (describe below) Sacrament/Intervention _x__ Active listening ___ Anointing ___ Synagogue ___ Bereavement ___ Communion _x__ Tabatha exploration ___ _x__ Life review _x__ Prayer ___ Reconciliation ___ Sacrament of Sick ___ Supportive presence ___ Wedding ___ Other (describe below) Pastoral Comments 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
[2023-11-29] MEDS: Atorvastatin Calcium 80 MG Tablet PO (19:46)
[2023-11-29 21:30] VITALS: BP 104/83; PULSE 95; RESP 16; TEMP 36.8; O2SAT 95
[2023-11-29] MEDS: MELATONIN 3 MG TABLET PO (21:43)
[2023-11-29 22:00] VITALS: PULSE 100; RESP 16; O2SAT 94
[2023-11-29] MEDS: Acetaminophen 325 MG Tablet 650 MG PO (22:56)
[2023-11-30 03:47] VITALS: O2SAT 89
[2023-11-30 03:51] VITALS: BP 114/84; PULSE 92; RESP 18; TEMP 36.6; O2SAT 94
[2023-11-30 04:52] VITALS: BMI 27.0
[2023-11-30 06:04] LABS: Absolute Neutrophil Count 5.1 X10^3/uL (2.0-7.7); Basophil# 0.06 X10^3/uL; Basophil% 0.8 % (0-1); Eosinophil# 0.16 X10^3/uL; Eosinophils% 2.1 % (0-5); Hematocrit 46.6 % (40-54); Hemoglobin 15.1 g/dL (13.0-16.5); Lymphocyte % 18.4 % (19-41); Mean Corp Hgb Conc 32.4 g/dL (32-36); Mean Corpuscular Hgb 30.4 pg (27.0-32.0); Mean Corpuscular Volume 93.8 fL (80-94); Mean Platelet Vol. 10.8 fl (6.2-12.0); Monocyte# 0.86 X10^3/uL; Monocyte% 11.3 % (0-10); NRBC Flagged by Analyzer 0 % (0-5); Neutrophil # 5.11 X10^3/uL (2.7-7.7); Neutrophil % 67.1 % (47-70); Platelet Count 241 K/mm3 (150-450); RBC Distribution Width CV 13.4 % (11.6-14.6); RBC Distribution Width SD 45.5 fl (35.1-43.9); Red Blood Count 4.97 M/mm3 (4.6-6.2); White Blood Count 7.6 K/mm3 (4.4-11.0)
[2023-11-30 06:10] VITALS: BP 121/89; PULSE 85; O2SAT 96
[2023-11-30] MEDS: Furosemide 40 MG/4 ML Vial IV (06:10)
[2023-11-30] MEDS: Glycerin/Hypromellose/PEG400 15 ml Bottle 1 DRP EACH EYE ×2 (06:10→08:22)
[2023-11-30] MEDS: 0.9% Saline Lock 10 ML Syringe IV (06:11)
[2023-11-30 06:36] LABS: Anion Gap 7 (5-15); BUN 24 mg/dL (7-18); BUN/Creat Ratio 25.6 RATIO (10-20); Calcium,Total 8.9 mg/dL (8.5-10.1); Chloride 95 mmol/L (98-107); Creatinine, Serum 0.94 mg/dL (0.70-1.30); EST Glomerular Filtration Rate 86 mL/min (>60); Est Glom Filt Rate - Afr Amer 104 mL/min (>60); Estimated Creatinine Clearance 84.56 ml/min; Glucose 106 mg/dL (74-106); Sodium Level 138 mmol/L (136-145)
--- NOTE | 2023-11-30 08:19 | PN.HOSP_ITS ---
Reason for Visit Reason for Visit: Diagnoses Paroxysmal atrial fibrillation (11/28/23) Acute on chronic systolic (congestive) heart failure (11/28/23) Hypoxemia (11/28/23) Chronic fatigue, unspecified (11/28/23) Subjective Subjective Feels well. No events overnight. Objective Data Objective Data Vital Signs: Vital Signs Temp Pulse Resp BP Pulse Ox O2 Del Method O2 Flow Rate 36.6 C 85 18 121/89 H 96 Nasal Cannula 2 11/30/23 03:51 11/30/23 06:10 11/30/23 03:51 11/30/23 06:10 11/30/23 06:10 11/30/23 06:10 11/30/23 06:10 Oxygen Flow Rate (L/min) 2 Oxygen Delivery Method Nasal Cannula Weight: 88 kg Body Mass Index (BMI) 27.0 Intake & Output: Intake and Output for Last 24 Hours 11/28/23 11/29/23 11/30/23 23:59 23:59 23:59 Intake Total 1020 / 1020 240 / 240 Output Total 730 / 2730 6100 / 6100 350 / 350 Balance -730 / -2580 -5080 / -5080 -110 / -110 Lab / Micro Data 11/30/23 05:46 11/30/23 05:46 Labs: Laboratory Results - last 24 hr 11/30/23 05:46: WBC 7.6, RBC 4.97, Hgb 15.1, Hct 46.6, MCV 93.8, MCH 30.4, MCHC 32.4, RDW Std Deviation 45.5 H, RDW Coeff of Sanjuanita 13.4, Plt Count 241, MPV 10.8, Immature Gran % (Auto) 0.300, Neut % (Auto) 67.1, Lymph % (Auto) 18.4 L, [place] % (Auto) 11.3 H, Eos % (Auto) 2.1, Baso % (Auto) 0.8, Absolute Neuts (auto) 5.1, Absolute Lymphs (auto) 1.40, Nucleated RBC % 0, Sodium 138, Potassium 3.0 L, C hloride 95 L, Carbon Dioxide 36.0 H, Anion Gap 7, BUN 24 H, Creatinine 0.94, Estim Creat Clear Calc 84.56, Est GFR (MDRD) Af Amer 104, Est GFR (MDRD) Non-Af 86, BUN/Creatinine Ratio 25.6 H, Glucose 106, Calcium 8.9 Micro: Microbiology 11/30/23 04:20 Nasal Secretion SARS-CoV-2 Antigen (Rapid) - Final Radiography Diagnostic Testing: Radiology Impression Echocardiogram 11/28/23 17:25 Interpretation Summary Mildly dilated left ventricle. Severe LV systolic dysfunction with global hypokinesis. Estimated LVEF 20 to 25%. The left atrium is moderately enlarged. The right atrium is mildly enlarged. Mildly dilated aortic root. Ordering Physician: Keara Orellana Referring Physician: Kendra Antunez Performed By: Ellie Ramírez RDCS, RVT Physical Exam Const alert and no apparent distress HEENT head/scalp atraumatic and moist oral mucous membranes Assessment & Plan Assessment/Plan (1) Hypoxia: (2) Fatigue: QUALIFIERS: Fatigue type: chronic, unspecified Qualified Code(s): R53.82 - Chronic fatigue, unspecified (3) Paroxysmal atrial fibrillation: (4) Acute on chronic heart failure with reduced ejection fraction (HFrEF, <= 40%): PLAN: Plan Acute HFrEF * echocardiogram was done on 01/10/2023 at which time he had an EF of 25% and stage I diastolic dysfunction. Follow up 11/28 shows an EF 20-25%, LAE (moderate), HERACLIO (mild) * Furosemide 40 mg 3 times daily. Change to 40mg PO daily. * Continue home Farxiga, losartan, and carvedilol * Daily weights * Strict I's and O's * Fluid restriction to 1750 cc daily, Sodium restricted diet * Pt to follow up with Dr. Patiño on 01/14. With lack of improvement, I would be concerned that he may need an AICD. Paroxysmal atrial fibrillation with rapid ventricular rate * Continue home Coreg * Would theoretically avoid Cardizem with depressed EF * If home medications do not can control rate may need to consider amiodarone bolus and drip * Patient has not been anticoagulated but does have a history of TIA since he has recurrent A-fib will start Eliquis 5 mg twice daily Chronic conditions: * Hypertension-Continue home losartan-Continue home carvedilol-Monitor blood pressure-Goal blood pressure is less than 130/80 * History of TIA-Continue aspirin-Will start Eliquis * History of tobacco abuse-Anticipate patient has COPD at baseline-Does not appear he is ever had PFTs here-Would recommend outpatient pulmonary referral after discharge-Recommend ongoing tobacco cessation-As needed albuterol at home will hold now due to a RVR VTE prophylaxis: not indicted as patient is already on apixaban. CODE STATUS: Full
[2023-11-30] MEDS: Aspirin E.C. 81 MG Tablet PO (08:23)
[2023-11-30] MEDS: Potassium Chloride Oral Tablet 20 MEQ 60 MEQ PO (08:47)
[2023-11-30] MEDS: Carvedilol 25 MG Tablet PO (09:42)
[2023-11-30] MEDS: Empagliflozin 25 MG Tablet PO (09:43)
[2023-11-30] MEDS: Losartan Potassium 100 MG Tablet PO (09:43)
[2023-11-30] MEDS: Spironolactone 25 MG Tablet 12.5 MG PO (09:43)
[2023-11-30] MEDS: APIXABAN 5 MG TABLET PO (09:43)
[2023-11-30 10:41] VITALS: O2SAT 91; O2SAT 93
--- NOTE | 2023-11-30 11:22 | PCM.DC.SUM ---
Providers Date of Admission: 11/28/23 Primary Care Physician: Dr. Kendra Antunez MD Reason For Visit: ACUTE EXACERBATION OF HEART FAILURE Diagnosis Discharge Diagnosis (1) Hypoxia: Status: Acute Code(s): R09.02 - Hypoxemia (2) Fatigue: Status: Chronic Code(s): R53.83 - Other fatigue Qualifiers: Fatigue type: chronic, unspecified Qualified Code(s): R53.82 - Chronic fatigue, unspecified (3) Paroxysmal atrial fibrillation: Status: Chronic Code(s): I48.0 - Paroxysmal atrial fibrillation (4) Acute on chronic heart failure with reduced ejection fraction (HFrEF, <= 40%): Status: Chronic Code(s): I50.23 - Acute on chronic systolic (congestive) heart failure Plan Acute HFrEF echocardiogram was done on 01/10/2023 at which time he had an EF of 25% and stage I diastolic dysfunction. Follow up 11/28 shows an EF 20-25%, LAE (moderate), HERACLIO (mild) Furosemide 40 mg 3 times daily. Change to 40mg PO daily. Continue home Farxiga, losartan, and carvedilol Daily weights Strict I's and O's Fluid restriction to 1750 cc daily, Sodium restricted diet Pt to follow up with Dr. Patiño on 01/14. With lack of improvement, I would be concerned that he may need an AICD. Paroxysmal atrial fibrillation with rapid ventricular rate Continue home Coreg Would theoretically avoid Cardizem with depressed EF If home medications do not can control rate may need to consider amiodarone bolus and drip Patient has not been anticoagulated but does have a history of TIA since he has recurrent A-fib will start Eliquis 5 mg twice daily Chronic conditions: Hypertension-Continue home losartan-Continue home carvedilol-Monitor blood pressure-Goal blood pressure is less than 130/80 History of TIA-Continue aspirin-Will start Eliquis History of tobacco abuse-Anticipate patient has COPD at baseline-Does not appear he is ever had PFTs here-Would recommend outpatient pulmonary referral after discharge-Recommend ongoing tobacco cessation-As needed albuterol at home will hold now due to a RVR VTE prophylaxis: not indicted as patient is already on apixaban. CODE STATUS: Full Medications at Discharge Home Medications dapagliflozin propanediol 10 mg tablet (Farxiga) 10 mg PO DAILY #30 tabs 01/19/23 aspirin 81 mg tablet,delayed release (Adult Aspirin Regimen) 81 mg PO DAILY asa 06/16/23 albuterol sulfate 90 mcg/actuation aerosol inhaler 2 puff inhalation Q6H PRN shortness of breath or wheezing #8.5 grams 06/18/23 carvedilol 25 mg tablet 25 mg PO BID #180 tabs 11/16/23 losartan 100 mg tablet 100 mg PO DAILY blood pressure #90 tabs 11/16/23 apixaban 5 mg tablet (Eliquis) 5 mg PO BID #60 tabs 11/30/23 atorvastatin 80 mg tablet 80 mg PO QHS #30 tabs 11/30/23 furosemide 40 mg tablet 40 mg PO DAILY #30 tabs 11/30/23 spironolactone 25 mg tablet 12.5 mg (1/2 x 25 mg) PO BID #60 tabs 11/30/23 Hospital Course Operations None Summary of Care Provided Minutes Spent on Discharge: 32 Hospital Course: Patient presents with shortness of breath. CXR shows pulmonary vascular congestion. He was started on IV furosemide. He responded. Echo showed an EF of 20-25%, relatively unchanged from 2022. He also had afib and will be on apixaban. Patient will follow up with Dr. Patiño of cardiology on 01/14. Given his lack of improvement, he may need an AICD. Will defer to cardiology to determine if that would be necessary. Weight / BMI Weight Weight: 88 kg Body Mass Index (BMI) 27.0 ABG / Lab / Microbiology Data 11/30/23 05:46 11/30/23 05:46 Laboratory: Laboratory Results - last 24 hr 11/30/23 05:46: WBC 7.6, RBC 4.97, Hgb 15.1, Hct 46.6, MCV 93.8, MCH 30.4, MCHC 32.4, RDW Std Deviation 45.5 H, RDW Coeff of Sanjuanita 13.4, Plt Count 241, MPV 10.8, Immature Gran % (Auto) 0.300, Neut % (Auto) 67.1, Lymph % (Auto) 18.4 L, [place] % (Auto) 11.3 H, Eos % (Auto) 2.1, Baso % (Auto) 0.8, Absolute Neuts (auto) 5.1, Absolute Lymphs (auto) 1.40, Nucleated RBC % 0, Sodium 138, Potassium 3.0 L, Chloride 95 L, Carbon Dioxide 36.0 H, Anion Gap 7, BUN 24 H, Creatinine 0.94, Estim Creat Clear Calc 84.56, Est GFR (MDRD) Af Amer 104, Est GFR (MDRD) Non-Af 86, BUN/Creatinine Ratio 25.6 H, Glucose 106, Calcium 8.9 Microbiology: Microbiology 11/30/23 04:20 Nasal Secretion SARS-CoV-2 Antigen (Rapid) - Final Radiography Diagnostic Testing: Radiology Impression Echocardiogram 11/28/23 17:25 Interpretation Summary Mildly dilated left ventricle. Severe LV systolic dysfunction with global hypokinesis. Estimated LVEF 20 to 25%. The left atrium is moderately enlarged. The right atrium is mildly enlarged. Mildly dilated aortic root. Ordering Physician: Keara Orellana Referring Physician: Kendra Antunez Performed By: Ellie Ramírez RDCS, RVT D/C Instructions Discharge Diet: Low fat / Low cholesterol and - (fluid restrict 1.5 liters per day.) Meaningful Use Info Meaningful Use Meaningful Use Diagnoses (Choose all that apply): CHF CHF SANA/ARB ordered at discharge?: Yes Documented LVEF (%): 20 Ischemic Stroke Statin Dosing Therapy Reference: STATIN DOSE THERAPY REFERENCE: * Patients > 75 years receive moderate or high dose statin therapy. * Patients 75 years or YOUNGER should receive HIGH intensity statin dose unless contraindicated. You will be required to document reason for non-treatment if statin daily dose does not meet guidelines. HIGH DOSE STATIN THERAPY DAILY Atorvastatin > than or = to 40 mg Rosuvastatin > than or = to 20 mg Amlodipine + Atorvastatin > than or = to 2.5/40 mg Ezetimibe + Simvastatin 10/80 mg Simvastatin 80mg Discharge Plan Admission Admit Date/Time: 11/28/23 16:31 Primary Reason for Your Visit: CHF exacerbation. Attending Provider: Garo Lewis Primary Care Provider: Kendra Antunez Consulting Providers: Milena Huddleston; Keara Orellana Instructions Patient Instructions: Heart Failure: Being Active, Heart Failure Dc, Heart Failure Care Discharge Orders/Prescriptions Prescriptions: New atorvastatin 80 mg Tablet 80 mg PO QHS Qty: 30 0RF spironolactone 25 mg Tablet 12.5 mg PO BID Qty: 60 0RF Eliquis 5 mg Tablet 5 mg PO BID Qty: 60 0RF furosemide 40 mg tablet 40 mg PO DAILY Qty: 30 0RF Continued aspirin [Adult Aspirin Regimen] 81 mg tablet,delayed release (DR/EC) 81 mg PO DAILY albuterol sulfate 90 mcg/actuation HFA aerosol inhaler 2 puff inhalation Q6H PRN (Reason: shortness of breath or wheezing) Qty: 8.5 0RF Farxiga 10 mg tablet 10 mg PO DAILY Qty: 30 12RF carvedilol 25 mg tablet 25 mg PO BID Qty: 180 3RF Rx Instructions: must administer with a meal/food losartan 100 mg tablet 100 mg PO DAILY Qty: 90 3RF Referrals / Follow Up: Kendra Antunez MD [Primary Care Provider] - Within 2 Weeks HaroonYvon bowen MD [Med Staff - Active Staff] - 01/15/24 10:30 am Disposition Disposition (needs filled in before D/C Order can be placed): Home, Self Care Charges/Coding Visit Charges Inpatient E&M: 53912 Disch Hosp >30min
--- NOTE | 2023-11-30 12:30 | CASEMGMT ---
Patient has order for discharge. Patient is discharging on Eliquis, KIMBERLY CHILDS called [facility] retail, cost is $20. RN CM in to discuss needs at discharge. RN CM updated patient regarding Eliquis cost. Patient denies needs or help at discharge. Patient had no further questions or concerns.
[2023-11-30 13:00] VITALS: BP 116/98; PULSE 89; RESP 18; TEMP 36.3; O2SAT 93
== END 2023-11-30 14:12 | disposition home or self-care (01) | DRG 291 ==
LOC: ED 15:31 → PCU 16:47
PROVIDERS: Internal Medicine; Admitting Provider Internal Medicine; Emergency Provider Emergency Medicine; PCP Family Medicine
DX: I11.0 Hypertensive heart disease with heart failure (principal); I50.21 Acute systolic (congestive) heart failure; E03.9 Hypothyroidism, unspecified; J44.9 Chronic obstructive pulmonary disease, unspecified; I48.0 Paroxysmal atrial fibrillation; I25.2 Old myocardial infarction; R09.02 Hypoxemia; Z79.82 Long term (current) use of aspirin; Z79.899 Other long term (current) drug therapy; Z86.73 Personal history of transient ischemic attack (TIA), and cerebral infarction without residual deficits; Z87.891 Personal history of nicotine dependence
CPT/HCPCS: 36415; 71046; 80048; 80053; 80061; 83735; 83880; 84100; 84443; 84484; 85025; 87426; 93005; 93306; 94668; 97802; 99252; 99285; Q9957; A4216; G0463; J1940

== ENCOUNTER → 2023-12-07 | Outpatient (CLI) | payer OTHER, SELFPAY ==
[2023-12-07 17:51] LABS: Absolute Lymphocyte Count 2.01 X10^3/uL (0.83-4.51); Absolute Neutrophil Count 7.5 X10^3/uL (2.0-7.7); Basophil# 0.09 X10^3/uL; Basophil% 0.8 % (0-1); Eosinophil# 0.18 X10^3/uL; Eosinophils% 1.6 % (0-5); Hematocrit 48.4 % (40-54); Hemoglobin 15.2 g/dL (13.0-16.5); Lymphocyte # 2.01 X10^3/ul (0.83-4.51); Lymphocyte % 17.9 % (19-41); Mean Corp Hgb Conc 31.4 g/dL (32-36); Mean Corpuscular Hgb 30.5 pg (27.0-32.0); Mean Platelet Vol. 12.4 fl (6.2-12.0); Monocyte# 1.34 X10^3/uL; Monocyte% 11.9 % (0-10); NRBC Flagged by Analyzer 0 % (0-5); Neutrophil # 7.54 X10^3/uL (2.7-7.7); Neutrophil % 67.3 % (47-70); Platelet Count 280 K/mm3 (150-450); RBC Distribution Width CV 13.3 % (11.6-14.6); RBC Distribution Width SD 47.8 fl (35.1-43.9); Red Blood Count 4.99 M/mm3 (4.6-6.2); White Blood Count 11.2 K/mm3 (4.4-11.0)
[2023-12-07 18:08] LABS: Anion Gap 8 (5-15); BUN 20 mg/dL (7-18); BUN/Creat Ratio 22.4 RATIO (10-20); Calcium,Total 9.3 mg/dL (8.5-10.1); Chloride 99 mmol/L (98-107); Creatinine, Serum 0.89 mg/dL (0.70-1.30); EST Glomerular Filtration Rate 91 mL/min (>60); Est Glom Filt Rate - Afr Amer 110 mL/min (>60); Glucose 106 mg/dL (74-106); PSA,Total - Annual Screen 2.08 ng/mL (0.00-4.00); Potassium 4.4 mmol/L (3.5-5.1); Sodium Level 137 mmol/L (136-145); Thyroid Stim Hormone (TSH) 0.917 uIU/mL (0.358-3.740)
== END | disposition home or self-care (01) ==
LOC: MFPLAB 14:13
PROVIDERS: PCP Family Medicine; Visit Provider Family Medicine
DX: I50.9 Heart failure, unspecified (principal)
CPT/HCPCS: 36415; 80048; 84153; 84443; 85025; G0103

== ENCOUNTER → 2023-12-31 | Outpatient (CLI) | payer OTHER, SELFPAY | END | disposition home or self-care (01) | LOC: PSN 11:43 | PROVIDERS: PCP Family Medicine; Referring Provider Nurse Practitioner Family; Visit Provider Nurse Practitioner Family | DX: R55 Syncope and collapse (principal); I48.0 Paroxysmal atrial fibrillation; I42.8 Other cardiomyopathies | CPT/HCPCS: 93225; 93226 ==

== ENCOUNTER 2024-01-09 10:09 | Day surgery (SDC) | payer OTHER, SELFPAY ==
[2023-12-31 10:17] LABS: Anion Gap 5 (5-15); BUN 29 mg/dL (7-18); BUN/Creat Ratio 25.4 RATIO (10-20); Calcium,Total 9.4 mg/dL (8.5-10.1); Chloride 101 mmol/L (98-107); Creatinine, Serum 1.14 mg/dL (0.70-1.30); EST Glomerular Filtration Rate 69 mL/min (>60); Est Glom Filt Rate - Afr Amer 83 mL/min (>60); Glucose 85 mg/dL (74-106); Potassium 4.4 mmol/L (3.5-5.1); Sodium Level 137 mmol/L (136-145)
[2024-01-08 07:22] VITALS: BMI 25.7
--- NOTE | 2024-01-09 12:34 | PRO.PCM_ITS ---
Procedure Report Date of Procedure: 01/09/24 DC cardioversion 63-year-old man with a history of cardiomyopathy and persistent atrial fibri llation. Patient is being evaluated and undergoing the above procedure to exclude tachycardia induced cardiomyopathy. Patient was seen by Dr. Campbell of the critical care division. Informed consent was obtained. Anterior-posterior pads were applied. Patient was then administered 6 mg of intravenous etomidate and 200 J of biphasic DC cardioversion energy were applied twice which was just briefly successful in converting to sinus rhythm but reverted to atrial fibrillation. Patient was then given an additional 4 mg of intravenous etomidate with total of 10 mg. 300 J of DC cardioversion energy biphasic were applied and this was unsuccessful in converting patient to sinus rhythm. Conclusion: Successful DC cardioversion from atrial fibrillation to sinus rhythm. Consider amiodarone loading and repeat DC cardioversion.
--- NOTE | 2024-01-09 12:39 | PCM.OP.PRO ---
Procedure Report Date of Procedure: 01/09/24 CONSCIOUS SEDATION REPORT DATE OF SERVICE: January 09, 2024 BRIEF HISTORY OF PRESENT ILLNESS: The patient is a 63-year-old male who presented to [facility] for an elective outpatient cardioversion due to underlying atrial fibrillation. The patient has never previously undergone a cardioversion. He denied any prior anesthetic complications. The patient has never previously been diagnosed with obstructive sleep apnea. He is a prior smoker without any formal diagnosis of COPD or asthma. His last surface echocardiogram demonstrated an ejection fraction of 20 to 25%. He is systemically anticoagulated on Eliquis. PHYSICAL EXAMINATION: VITAL SIGNS: Reviewed and were acceptable. GENERAL: The patient is a male, in no apparent distress, speaking in full sentences. HEENT: Normocephalic, atraumatic. Mucous membranes are moist and pink. Good mouth opening noted. Trachea is midline. CHEST: S1, S2 irregularly irregular. No murmurs, rubs or gallops were noted. LUNGS: Clear to auscultation bilaterally without appreciable wheezes, rales or rhonchi. ABDOMEN: Soft, nontender, nondistended. Positive bowel sounds. EXTREMITIES: There is no clubbing, cyanosis or edema. ASA Class: II DESCRIPTION OF PROCEDURE: After confirmation of informed consent, the patient's anesthesia plan was reviewed in detail. Etomidate was chosen. Risks and benefits were reviewed and the patient agreed to proceed. At 1222, the patient was given his first bolus of etomidate. In total, the patient required 10 mg of etomidate throughout the procedure to help facilitate 3 attempts at cardioversion, the first and second at 200 J and the third at 300 J. Unfortunately, this was unsuccessful in restoring normal sinus rhythm. The patient was monitored until 1239, at which time he reached his baseline mental status and function. The patient tolerated the procedure well. COMPLICATIONS: None ESTIMATED BLOOD LOSS: None RECOMMENDATIONS: Okay to recover in usual fashion. Procedures Pulmonary Pulmonary Procedures /Diagnostic Testin Con Sedation
== END 2024-01-09 13:40 | disposition home or self-care (01) ==
PROVIDERS: Nurse Practitioner Family; PCP Family Medicine; Referring Provider Internal Medicine Cardiovascular Disease; Visit Provider Internal Medicine Cardiovascular Disease
DX: I48.19 Other persistent atrial fibrillation (principal); I48.0 Paroxysmal atrial fibrillation; I42.8 Other cardiomyopathies; I10 Essential (primary) hypertension; Z79.899 Other long term (current) drug therapy; Z87.891 Personal history of nicotine dependence; Z79.01 Long term (current) use of anticoagulants
CPT/HCPCS: 36415; 80048; 92960; 93005; J7040

== ENCOUNTER 2024-01-30 10:39 | Day surgery (SDC) | payer OTHER, SELFPAY ==
[2024-01-29 07:13] VITALS: BMI 25.9
--- NOTE | 2024-01-30 12:28 | PCM.OP.PRO ---
Procedure Report Date of Procedure: 01/30/24 DC cardioversion. 63-year-old man with a history of dilated cardiomyopathy and persistent atrial fibrillation here for elective cardioversion. Patient has been on therapeutic anticoagulation. After informed consent was obtained patient was seen by Dr. Campbell of the critical care division. The patient was administered 6 mg of intravenous etomidate. Anterior-posterior pads were applied 200 J of synchronized DC cardioversion energy were applied with brief reversal to sinus rhythm but then patient went back into atrial fibrillation. An additional 200 J were applied of biphasic energy which was unsuccessful in restoring sinus rhythm. After this an additional 4 mg of intravenous etomidate was administered and then 300 J of synchronized DC cardioversion energy were applied but this was once again not successful in attaining sinus rhythm. Conclusion: Unsuccessful atrial fibrillation cardioversion attempt to sinus rhythm. Will proceed with ablation attempt.
--- NOTE | 2024-01-30 12:33 | PCM.OP.PRO ---
Procedure Report Date of Procedure: 01/30/24 CONSCIOUS SEDATION REPORT DATE OF SERVICE: January 30, 2024 BRIEF HISTORY OF PRESENT ILLNESS: The patient is a 63-year-old male who presented to [facility] to undergo an elective outpatient cardioversion due to underlying atrial fibrillation. The patient did undergo a prior cardioversion in December 2023, for which etomidate was utilized. The patient tolerated the procedure well and denied any anesthetic complications. He is systemically anticoagulated on Eliquis. His last surface echocardiogram demonstrated an ejection fraction of 20 to 25%. PHYSICAL EXAMINATION: VITAL SIGNS: Reviewed and were acceptable. GENERAL: The patient is a male, in no apparent distress, speaking in full sentences. HEENT: Normocephalic, atraumatic. Mucous membranes are moist and pink. Good mouth opening noted. Trachea is midline. Good neck mobility. CHEST: S1, S2 irregularly irregular. No murmurs, rubs or gallops were noted. LUNGS: Clear to auscultation bilaterally without appreciable wheezes, rales or rhonchi. ABDOMEN: Soft, nontender, nondistended. Positive bowel sounds. EXTREMITIES: There is no clubbing, cyanosis or edema. ASA Class: II DESCRIPTION OF PROCEDURE: After confirmation of informed consent, the patient's anesthesia plan was reviewed in detail. Etomidate was chosen. Risks and benefits were reviewed and the patient agreed to proceed. At 1218, the patient was given his first bolus of etomidate. In total, the patient required 10 mg of etomidate throughout the entire procedure to facilitate 3 separate attempts at cardioversion, the first 2 at 200 J and the third at 300 J. Unfortunately, the procedure was unsuccessful in restoring normal sinus rhythm. The patient was monitored until 1233, at which time he reached his baseline mental status and function. The patient tolerated the procedure well. COMPLICATIONS: None ESTIMATED BLOOD LOSS: None RECOMMENDATIONS: Okay to recover in usual fashion. Procedures Pulmonary Pulmonary Procedures /Diagnostic Testin Con Sedation
== END 2024-01-30 13:20 | disposition home or self-care (01) ==
PROVIDERS: PCP Family Medicine; Referring Provider Internal Medicine Cardiovascular Disease; Visit Provider Internal Medicine Cardiovascular Disease
DX: I48.0 Paroxysmal atrial fibrillation (principal); I42.8 Other cardiomyopathies; I10 Essential (primary) hypertension; Z86.73 Personal history of transient ischemic attack (TIA), and cerebral infarction without residual deficits; Z87.891 Personal history of nicotine dependence; R53.83 Other fatigue; R55 Syncope and collapse
CPT/HCPCS: 92960; 93005

== ENCOUNTER → 2024-03-17 | Outpatient (CLI) | payer OTHER, SELFPAY ==
[2024-03-17 10:37] LABS: Hematocrit 50.7 % (40-54); Hemoglobin 16.3 g/dL (13.0-16.5); Mean Corp Hgb Conc 32.1 g/dL (32-36); Mean Corpuscular Hgb 30.9 pg (27.0-32.0); Mean Platelet Vol. 10.6 fl (6.2-12.0); Platelet Count 253 K/mm3 (150-450); RBC Distribution Width CV 13.2 % (11.6-14.6); RBC Distribution Width SD 47.1 fl (35.1-43.9); Red Blood Count 5.28 M/mm3 (4.6-6.2); White Blood Count 8.6 K/mm3 (4.4-11.0)
[2024-03-17 11:11] LABS: Anion Gap 8 (5-15); BUN 15 mg/dL (7-18); BUN/Creat Ratio 12.4 RATIO (10-20); Calcium,Total 8.9 mg/dL (8.5-10.1); Chloride 102 mmol/L (98-107); Creatinine, Serum 1.21 mg/dL (0.70-1.30); EST Glomerular Filtration Rate 64 mL/min (>60); Est Glom Filt Rate - Afr Amer 77 mL/min (>60); Glucose 90 mg/dL (74-106); Potassium 3.3 mmol/L (3.5-5.1); Sodium Level 141 mmol/L (136-145)
== END | disposition home or self-care (01) ==
LOC: LAB 10:23
PROVIDERS: PCP Family Medicine
DX: I48.19 Other persistent atrial fibrillation (principal)
CPT/HCPCS: 36415; 80048; 85027

== ENCOUNTER → 2024-07-07 | Outpatient (CLI) | payer MEDICARE, SELFPAY ==
--- NOTE | 2024-07-07 13:55 | ECHOL_ITS ---
Reason For Study Reason For Study: Evaluate EF post Ablation Procedure This was a limited 2D transthoracic echocardiogram. Myocardial strain analysis was performed in this exam to aid in the assessment of cardiac function. Exam performed in department. Left Ventricle Normal LV size. The global longitudinal strain = -12.8% (abnormal). The left ventricular ejection fraction is 40 %. There is moderate global hypokinesis of the left ventricle. Right Ventricle Normal RV size. Normal systolic function. Atria Normal left atrium. Normal right atrium. Mitral Valve Normal mitral valve. Tricuspid Valve Normal tricuspid valve. Aortic Valve Trisinus/trileaflet aortic valve. Great Vessels Normal aortic root. Pericardium/Pleural No pericardial effusion. MMode/2D Measurements & Calculations LVIDd: 5.3 cm IVSd: 1.3 cm LA dimension: 4.4 cm LVIDs: 4.1 cm LVPWd: 1.1 cm FS: 21.5 % LVAd ap4: 30.2 cm2 LVAd ap2: 29.6 cm2 SV(MOD-sp4): 38.2 ml LVLd ap4: 8.0 cm LVLd ap2: 7.5 cm SI(MOD-sp4): 18.7 ml/m2 EDV(MOD-sp4): 95.3 ml EDV(MOD-sp2): 99.9 ml EDV(sp4-el): 96.2 ml EDV(sp2-el): 99.3 ml LVAs ap4: 22.1 cm2 LVAs ap2: 20.5 cm2 LVLs ap4: 7.2 cm LVLs ap2: 6.5 cm ESV(MOD-sp4): 57.2 ml ESV(MOD-sp2): 57.4 ml ESV(sp4-el): 57.3 ml ESV(sp2-el): 55.3 ml EF(MOD-sp4): 40.0 % EF(MOD-sp2): 42.6 % EF(sp4-el): 40.4 % SV(MOD-sp2): 42.5 ml SV(sp4-el): 38.9 ml SI(MOD-sp2): 20.8 ml/m2 ECHO/Echo, Limited Study Interpretation Summary The global longitudinal strain = -12.8% (abnormal). Normal LV size. The left ventricular ejection fraction is 40 %. The global longitudinal strain is moderately abnormal. Compared to previous santos dy, the left ventricular systolic function has improved.. Ordering Physician: Marco Duran Referring Physician: Kendra Antunez M.D. Performed By: Luis Lewis RCS
== END | disposition home or self-care (01) ==
LOC: CVS 13:55
PROVIDERS: PCP Family Medicine; Referring Provider Nurse Practitioner Family; Visit Provider Nurse Practitioner Family
DX: I42.8 Other cardiomyopathies (principal); I48.0 Paroxysmal atrial fibrillation; I10 Essential (primary) hypertension
CPT/HCPCS: 93308

== ENCOUNTER → 2024-07-17 | Outpatient (CLI) | payer MEDICARE, SELFPAY ==
[2024-07-17 18:44] LABS: AST(SGOT) 22 U/L (<=37); Alanine Aminotransfer ALT/SGPT 29 U/L (<=46); Anion Gap 12 (5-15); BUN 15 mg/dL (4-19); BUN/Creat Ratio 16.1 RATIO (10-20); Calcium,Total 9.2 mg/dL (7.6-11.0); Carbon Dioxide 27.2 mmol/L (21.0-32.0); Chloride 102 mmol/L (98-108); Cholesterol 155 mg/dL (<=200); Creatinine, Serum 0.95 mg/dL (0.70-1.20); EST Glomerular Filtration Rate 89 (>60); Glucose 96 mg/dL (70-99); High Density Lipoprotein 46 mg/dL; Low Density Lipoprotein Calc. 87 mg/dL; Potassium 4.3 mmol/L (3.3-5.1); Sodium Level 141 mmol/L (133-145); Triglycerides 111 mg/dL; Very Low Density Lipoprotein 22 mg/dL (5-40); cholesterol:hdl ratio screen 3.38
== END | disposition home or self-care (01) ==
PROVIDERS: PCP Family Medicine; Referring Provider Family Medicine; Visit Provider Family Medicine
DX: I11.0 Hypertensive heart disease with heart failure (principal); I50.9 Heart failure, unspecified; E78.5 Hyperlipidemia, unspecified
CPT/HCPCS: 36415; 80048; 80061; 84443; 84450; 84460

== ENCOUNTER 2024-09-02 18:11 | Emergency (ER) | payer MEDICARE, SELFPAY ==
[2024-09-02] VITALS (14 sets, daily range): BP systolic 108–187; BP diastolic 87–109; PULSE 77–88; RESP 12–24; TEMP 36.4–36.6; O2SAT 88–97; BMI 27.4
--- NOTE | 2024-09-02 19:07 | ED.VIS.DYS ---
HPI History of Present Illness Chief Complaint: Shortness of Breath Informant: patient Onset/Context/Timing Onset: Today Context: gradual Timing: Continuous Quality: Positive for Wheezing Worsened by: Coughing Relieved by: Nothing Associated Symptoms cough, rhinorrhea and sore throat; Negative for post nasal drip, ear pain, fever, chills, sweats, clear sputum, white sputum, yellow sputum or green sputum Chest Pain: Positive for None Narrative Narrative: Patient presents with shortness of breath that began today. Patient states he feels like he is wheezing. Patient admits to a cough. Patient denies any sputum production. Patient admits to some recent rhinorrhea and sore throat. Patient admits to some sweats but denies any fevers or chills. Patient denies any chest pain. Patient denies any nausea or vomiting. Patient states his breathing is worse with coughing. Patient states nothing makes it better. PE Risk Factors: Negative for Cancer, OCP + Smoking + > 35, Prior DVT or PE, Recent immobilization, Recent surgery or Recent travel [facility] Medical History Pneumonia Anxiety Depression Atrial fibrillation Chest pain Hypertension Migraines TIA (transient ischemic attack) Congestive heart failure TIA (transient ischemic attack) (06/2019) Paroxysmal atrial fibrillation Essential (primary) hypertension Disequilibrium (06/2019) Pilomatrixoma of eyelid Lipoma of neck Former smoker Neoplasm of skin of eyelid Dysesthesia Mass of right side of neck New onset atrial fibrillation (12/05/17) COPD (chronic obstructive pulmonary disease) Non-ischemic cardiomyopathy Acute systolic CHF (congestive heart failure) (12/05/17) Nicotine dependence Fatty liver Psoriasis Psoriasiform eczema Non-STEMI (non-ST elevated myocardial infarction) (12/05/17) Atrial fibrillation with RVR (12/05/17) Home Medications ?Medication ?Instructions ?Recorded ?Last Taken ?Type aspirin 81 mg tablet,delayed 81 mg PO DAILY heart health 06/16/23 01/09/24 History release (Adult Aspirin Regimen) apixaban 5 mg tablet (Eliquis) 5 mg PO BID #180 tabs 12/14/23 09/02/24 Rx atorvastatin 80 mg tablet 80 mg PO QHS #90 tabs 12/14/23 Unknown Rx dapagliflozin propanediol 10 mg 10 mg PO DAILY diabetes #90 tabs 12/14/23 09/02/24 Rx tablet (Farxiga) carvedilol 25 mg tablet 12.5 mg PO BID 04/14/24 09/02/24 History furosemide 40 mg tablet 40 mg PO Q OTHER DAY edema 07/16/24 Unknown History potassium chloride 20 mEq 20 meq PO DAILY #90 tabs 07/16/24 Unknown Rx tablet,extended release albuterol sulfate 90 mcg/actuation 1 - 2 puff inhalation Q4H PRN PRN 09/02/24 Unknown Rx aerosol inhaler (Ventolin HFA) Wheezing ##1 prednisone 20 mg tablet 60 mg (3 x 20 mg) PO DAILY #15 09/02/24 Unknown Rx TABLETS Allergy/AdvReac Type Severity Reaction Status Date / Time doxycycline Allergy Rash Verified 09/02/24 18:12 Family History Father Heart disease Myocardial infarction early 60's Hypertension Uncle Heart disease Myocardial infarction Mother Hypertension Asthma Breast cancer Diabetes Surgical History History of radiofrequency ablation (RFA) procedure for cardiac arrhythmia (03/27/24) History of cardioversion (~12/2023) History of eye surgery History of right and left heart catheterization (12/07/17) History of herniorrhaphy Social History Smoking Status: Former smoker how long ago did patient quit smokin alcohol intake: never substance use type: does not use caffeine: Yes Type: carbonated beverages Number of servings: 1 and coffee Number of servings: 2 ROS ROS ED Constitutional Constitutional ED: Denies chills or fever(s) Eyes Eyes: Denies blurry vision or change in vision ENT ENT ED: Reports sore throat; Denies rhinorrhea Cardiovascular Cardiovascular: Denies chest pain or palpitations Respiratory/Chest Respiratory/Chest: Reports cough and dyspnea Gastrointestinal Gastrointestinal: Denies nausea or vomiting Genitourinary Genitourinary ED: Denies dysuria or hematuria Musculoskeletal Musculoskeletal: Denies back pain or neck pain Integumentary Denies abscess or rash Neurologic Neurologic: Denies headache(s) or weakness Allergic/Immunologic Allergic/Immunologic ED: Denies mouth swelling or urticaria EXAM Physical Exam Const Vital Signs: 09/02/24 18:12 09/02/24 18:14 09/02/24 18:23 Temperature 97.6 F L 97.6 F L Temperature Source Oral Oral Pulse Rate 88 83 Respiratory Rate 24 H 15 Respiratory Effort Blood Pressure 187/109 H 163/107 H Blood Pressure Mean 135 125 Pulse Ox 93 97 88 Oxygen Delivery Method Room Air Nasal Cannula Room Air Oxygen Flow Rate (L/min) 2 09/02/24 18:23 09/02/24 18:25 09/02/24 19:11 Temperature Temperature Source Pulse Rate 84 Respiratory Rate 12 Respiratory Effort Short of Breath Labored Blood Pressure Blood Pressure Mean Pulse Ox 93 91 Oxygen Delivery Method Nasal Cannula Nasal Cannula Nasal Cannula Oxygen Flow Rate (L/min) 2 2 2 09/02/24 19:14 09/02/24 19:32 09/02/24 19:55 Temperature 97.8 F Temperature Source Oral Pulse Rate 81 79 80 Respiratory Rate 23 H 18 18 Respiratory Effort Blood Pressure 126/87 H 126/87 H Blood Pressure Mean 100 100 Pulse Ox 91 91 Oxygen Delivery Method Room Air Nasal Cannula Oxygen Flow Rate (L/min) 2 09/02/24 20:00 09/02/24 20:00 09/02/24 21:00 Temperature 97.9 F 98 F Temperature Source Oral Oral Pulse Rate 83 83 83 Respiratory Rate 18 23 H 19 H Respiratory Effort Blood Pressure 108/96 H 108/96 H 143/98 H Blood Pressure Mean 100 100 113 Pulse Ox 94 94 93 Oxygen Delivery Method Nasal Cannula Room Air Nasal Cannula Oxygen Flow Rate (L/min) 2 2 09/02/24 21:00 09/02/24 21:57 09/02/24 22:00 Temperature Temperature Source Pulse Rate 78 86 87 Respiratory Rate 16 18 18 Respiratory Effort Blood Pressure 143/98 H Blood Pressure Mean 113 Pulse Ox 93 91 Oxygen Delivery Method Nasal Cannula Room Air Oxygen Flow Rate (L/min) 2 09/02/24 22:24 Temperature 97.9 F Temperature Source Pulse Rate 77 Respiratory Rate 18 Respiratory Effort Blood Pressure 143/98 H Blood Pressure Mean 113 Pulse Ox 91 Oxygen Delivery Method Oxygen Flow Rate (L/min) Positive well nourished and well developed General Appearance ED: well developed and NAD HEENT Reports moist mucous membranes atraumatic Neck supple, no meningeal signs and no JVD Resp normal respiratory effort Auscultation: wheezes expiratory wheezes and throughout Cardio regular rate and regular rhythm GI non-tender and non-distended Palpation: soft Neuro oriented x3, CN's II-XII intact bilaterally and no sensory deficits noted [place] Coma Scale: document GCS findings Spontaneous Obeys Commands Oriented 15 Sensorium / Orientation: alert Speech: speech normal Motor Exam: strength 5/5 throughout Psych mental status grossly normal MDM MDM MDM Narrative Medical decision making narrative: Differential diagnosis includes pneumonia, bronchitis, COPD exacerbation, asthma, cardiac dysrhythmia, cardiac ischemia, and anxiety. EKG will be obtained to assess for cardiac dysrhythmia and cardiac ischemia. Chest x-ray will be obtained to assess for pneumonia or bronchitis. CBC will be obtained to assess for leukocytosis and anemia. Basic metabolic profile will be obtained to assess for electrolyte abnormality and renal function. High-sensitivity troponin will be obtained to assess for cardiac ischemia. 2-hour repeat high-sensitivity troponin will be obtained to assess for ongoing cardiac ischemia. History & Record Review Additional record(s) reviewed:: Prior outpatient record, Prior ED visit and Prior labs Lab Data Attestation: I reviewed the patient's lab results. Lab results narrative: CBC was reviewed. There is a mild leukocytosis of 13.2. The remainder is within normal limits. Basic metabolic profile was reviewed and was essentially within normal limits. Initial high-sensitivity troponin was reviewed and was normal at 8. 2-hour repeat high-sensitivity troponin was reviewed and was normal at 13. Labs: Laboratory Results - last 24 hr 09/02/24 09/02/24 18:23 20:17 WBC 13.2 H RBC 5.03 Hgb 15.7 Hct 49.2 MCV 97.8 H MCH 31.2 MCHC 31.9 L RDW Std Deviation 50.9 H RDW Coeff of [place] 14.1 Plt Count 243 MPV 11.0 Immature Gran % (Auto) 0.600 Neut % (Auto) 78.5 H Lymph % (Auto) 10.0 L [place] % (Auto) 7.6 Eos % (Auto) 2.5 Baso % (Auto) 0.8 Absolute Neuts (auto) 10.3 H Absolute Lymphs (auto) 1.32 Nucleated RBC % 0 Sodium 139 Potassium 4.1 Chloride 99 Carbon Dioxide 29.4 Anion Gap 11 BUN 15 Creatinine 0.98 Estim Creat Clear Calc 80.04 Est GFR (MDRD) Non-Af 85 BUN/Creatinine Ratio 15.1 Glucose 100 H Calcium 9.2 Troponin T High Sens 8 Troponin T Hi Sens 2 Hr 13 Radiography Chest X-Ray - ED: 2 View, Read by ED Physician, Read by Radiologist and No Acute Disease Diagnostic Testing: Clinical Impression(s) from Imaging Studies Chest X-Ray 09/02/24 19:55 IMPRESSION: NO ACUTE FINDINGS. Reading Location: [place] [id number] PA and lateral chest x-ray was obtained. There are 2 views. On my independent interpretation, lung graham are clear. There is normal cardiac silhouette. Bony thorax is normal. There is no acute process noted. Radiologist also interpreted the x-ray and agrees. EKG Initial EKG: Attestation: I personally reviewed and interpreted this EKG as follows: Interpretation: Sinus Rhythm (79) and Non-Specific ST Changes Comments: EKG was obtained. On my independent interpretation, it showed a normal sinus rhythm with a rate of 79. AR interval, QRS interval, and QTc intervals were all normal. [place] was normal. There are nonspecific ST-T wave changes. Prior EKG tracings: available for review Prior: Unchanged (07/16/2024) Treatment and Re-Evaluation :: Patient was given a DuoNeb aerosol. Patient was given a dose of Solu-Medrol. Patient was given a repeat albuterol aerosol. Patient is feeling better on reevaluation. Patient was ambulated on room air and his pulse oximeter was 90%. Patient wants to go home. Patient was given a prescription for an albuterol [place]. Patient was given a spacer. Patient was given a prescription for a short course of prednisone. Patient was instructed to follow-up with his primary care physician in 3 to 5 days. Patient was instructed to return if worse in any way. Patient understood and was agreeable with the plan. All questions were answered. Discharge Plan Triage Chief Complaint: Shortness of Breath ED Provider: Garo Mtz Dx/Rx/DC Orders Clinical Impression: Dyspnea, Essential (primary) hypertension Instructions: ED COPD Flare, ED Dyspnea Prescriptions: New prednisone 20 mg tablet 60 mg PO DAILY Qty: 15 0RF albuterol sulfate [Ventolin HFA] 90 mcg/actuation HFA aerosol inhaler 1 - 2 puff inhalation Q4H PRN PRN (Reason: Wheezing) Qty: 1 0RF No Action Eliquis 5 mg tablet 5 mg PO BID Qty: 180 3RF atorvastatin 80 mg tablet 80 mg PO QHS Qty: 90 4RF dapagliflozin propanediol [Farxiga] 10 mg tablet 10 mg PO DAILY Qty: 90 3RF carvedilol 25 mg tablet 12.5 mg PO BID potassium chloride 20 mEq tablet extended release 20 meq PO DAILY Qty: 90 3RF furosemide 40 mg tablet 40 mg PO Q OTHER DAY aspirin [Adult Aspirin Regimen] 81 mg tablet,delayed release (DR/EC) 81 mg PO DAILY Primary Care Provider: Kendra Antunez Referrals: Kendra Antunez MD [Primary Care Provider] - 3-5 Days Print Language: Slovak Disposition Disposition: Home, Self Care Discharge Date/Time: 09/02/24 22:31
--- NOTE | 2024-09-02 19:15 | EKG12_ITS ---
Test Reason : SOB Blood Pressure : */* mmHG Vent. Rate : 79 BPM Atrial Rate : 79 BPM P-R Int : 196 ms QRS Dur : 86 ms QT Int : 382 ms P-R-T Axes : 86 78 56 degrees QTcB Int : 438 ms Normal sinus rhythm Septal infarct , age undetermined Abnormal ECG Confirmed by TERI YOUNGER, INNA ([id number]), editor managing director JAKY FERGUSON ([id number]) on 09/03/2024 10:36:39 AM Referred By: Confirmed By: INNA WILLIAMSON MD
[2024-09-02] MEDS: Ipratropium/Albuterol Sulfate 3 ML AMPUL.NEB INHALATION (19:32)
[2024-09-02 19:37] LABS: Absolute Lymphocyte Count 1.32 X10^3/uL (0.83-4.51); Absolute Neutrophil Count 10.3 X10^3/uL (2.0-7.7); Basophil% 0.8 % (0-1); Eosinophil# 0.33 X10^3/uL; Eosinophils% 2.5 % (0-5); Hematocrit 49.2 % (40-54); Hemoglobin 15.7 g/dL (13.0-16.5); Lymphocyte # 1.32 X10^3/ul (0.83-4.51); Mean Corp Hgb Conc 31.9 g/dL (32-36); Mean Corpuscular Hgb 31.2 pg (27.0-32.0); Mean Corpuscular Volume 97.8 fL (80-94); Monocyte% 7.6 % (0-10); NRBC Flagged by Analyzer 0 % (0-5); Neutrophil # 10.33 X10^3/uL (2.7-7.7); Neutrophil % 78.5 % (47-70); Platelet Count 243 K/mm3 (150-450); RBC Distribution Width CV 14.1 % (11.6-14.6); RBC Distribution Width SD 50.9 fl (35.1-43.9); Red Blood Count 5.03 M/mm3 (4.6-6.2); White Blood Count 13.2 K/mm3 (4.4-11.0)
[2024-09-02] MEDS: MethylPREDNISolone 125 MG/2 ML Vial 60 MG IV (19:49)
--- NOTE | 2024-09-02 19:55 | RAD_ITS ---
PROCEDURE: CHEST PA AND LATERAL 09/02/2024 REASON FOR EXAM: COUGH TECHNIQUE: Frontal and lateral views of the chest. COMPARISON: None. FINDINGS: Hardware: None. Heart: The heart size is normal. Mediastinum: The mediastinal contour is unremarkable. Lungs: The lungs are clear. Bones: The bones are unremarkable. RAD/Chest PA and Lateral IMPRESSION: NO ACUTE FINDINGS. Reading Location: [place] [id number]
[2024-09-02 19:58] LABS: Troponin T High Sensitivity 8 ng/L (<=22)
[2024-09-02 20:01] LABS: Anion Gap 11 (5-15); BUN 15 mg/dL (4-19); BUN/Creat Ratio 15.1 RATIO (10-20); Calcium,Total 9.2 mg/dL (7.6-11.0); Carbon Dioxide 29.4 mmol/L (21.0-32.0); Chloride 99 mmol/L (98-108); Creatinine, Serum 0.98 mg/dL (0.70-1.20); EST Glomerular Filtration Rate 85 (>60); Estimated Creatinine Clearance 80.04 ml/min (50-250); Glucose 100 mg/dL (70-99); Potassium 4.1 mmol/L (3.3-5.1); Sodium Level 139 mmol/L (133-145)
[2024-09-02 21:04] LABS: Troponin T High Sens 2 HR 13 ng/L (<=22)
[2024-09-02] MEDS: Albuterol 2.5 MG/3 ML VIAL.NEB. INHALATION (21:57)
== END 2024-09-02 22:31 | disposition home or self-care (01) ==
PROVIDERS: Emergency Provider Emergency Medicine; PCP Family Medicine; Visit Provider Emergency Medicine
DX: R06.02 Shortness of breath (principal); I11.0 Hypertensive heart disease with heart failure; I50.21 Acute systolic (congestive) heart failure; J44.9 Chronic obstructive pulmonary disease, unspecified; I48.0 Paroxysmal atrial fibrillation; Z87.891 Personal history of nicotine dependence; Z79.01 Long term (current) use of anticoagulants; Z79.899 Other long term (current) drug therapy; D72.829 Elevated white blood cell count, unspecified
CPT/HCPCS: 71046; 80048; 84484; 85025; 93005; 94640; 99284; A4216

== ENCOUNTER → 2024-12-24 | Outpatient (CLI) | payer MEDICARE, SELFPAY ==
[2024-12-24 16:07] LABS: PSA,Total - Annual Screen 1.14 ng/mL (0.02-4.00)
== END | disposition home or self-care (01) ==
LOC: MFPLAB 11:34
PROVIDERS: PCP Family Medicine
DX: Z12.5 Encounter for screening for malignant neoplasm of prostate (principal)
CPT/HCPCS: 36415; 84153; G0103

== ENCOUNTER → 2025-03-23 | Outpatient (CLI) | payer MEDICARE, SELFPAY ==
--- NOTE | 2025-03-23 09:44 | ECHOD_ITS ---
Reason For Study Reason For Study: DCMP Procedure This was a 2D Doppler, Color Flow transthoracic echocardiogram. Exam performed in department. Left Ventricle Normal LV size. Moderate concentric left ventricular hypertrophy. The estimated ejection fraction is 53 %. No regional wall motion abnormalities noted. Right Ventricle Normal RV size. Normal systolic function. Atria Normal left atrium. Normal right atrium. Mitral Valve Normal mitral valve. Tricuspid Valve Normal tricuspid valve. Aortic Valve Trisinus/trileaflet aortic valve. Pulmonic Valve Normal pulmonic valve. Great Vessels Mildly dilated aortic root. The pulmonary artery is normal size. Inferior vena cava collapse with sniff. Pericardium/Pleural No pericardial effusion. MMode/2D Measurements & Calculations LVIDd: 5.0 cm IVSd: 1.5 cm Ao root diam: 4.0 cm LVIDs: 3.8 cm LVPWd: 1.3 cm FS: 25.2 % LAV(MOD-sp4): 62.0 ml LVAd ap4: 25.1 cm2 SV(MOD-sp4): 34.2 ml LVLd ap4: 7.8 cm SI(MOD-sp4): 16.6 ml/m2 EDV(MOD-sp4): 67.9 ml EDV(sp4-el): 68.6 ml LVAs ap4: 15.7 cm2 LVLs ap4: 6.4 cm ESV(MOD-sp4): 33.7 ml ESV(sp4-el): 32.6 ml EF(MOD-sp4): 50.4 % EF(sp4-el): 52.5 % SV(sp4-el): 36.0 ml LA A4 area: 20.4 cm2 LA dimension(2D): 4.2 cm RA A4 area: 14.2 cm2 Doppler Measurements & Calculations Ao V2 max: 123.5 cm/sec LV V1 max: 118.9 cm/sec PA V2 max: 87.5 cm/sec Ao max P.2 mmHg LV V1 max P.7 mmHg PA V2 mean: 57.8 cm/sec Ao V2 mean: 86.6 cm/sec LV V1 mean P.7 mmHg Ao mean P.3 mmHg LV V1 mean: 92.1 cm/sec Ao V2 VTI: 18.2 cm LV V1 VTI: 16.3 cm AV (velocity ratio): 0.90 ECHO/Echo Complete Interpretation Summary Normal LV size. Moderate concentric left ventricular hypertrophy. The estimated ejection fraction is 53 %. Compared to previous study, the left ventricular systolic function has improved .. Ordering Physician: Yvon Patiño Referring Physician: Yvon Patiño Performed By: Ying Hayden RCS
== END | disposition home or self-care (01) ==
LOC: CVS 09:44
PROVIDERS: Referring Provider Internal Medicine Cardiovascular Disease; Visit Provider Internal Medicine Cardiovascular Disease
DX: I42.8 Other cardiomyopathies (principal)
CPT/HCPCS: 93306

== ENCOUNTER → 2025-03-26 | Outpatient (CLI) | payer MEDICARE, SELFPAY ==
--- NOTE | 2025-03-26 13:23 | RAD_ITS ---
PROCEDURE: CHEST PA AND LATERAL 03/26/2025 REASON FOR EXAM: COPD, COUGH TECHNIQUE: Procedure Code: RADCXR Modality: DX Procedure: CHEST PA AND LATERAL COMPARISON: 09/02/24 FINDINGS: No focal consolidation. Bibasilar subsegmental atelectasis. Hyperinflated lungs may reflect COPD/pulmonary emphysema. No pleural effusion or pneumothorax. Cardiac silhouette is within normal limits. No acute fractures. RAD/Chest PA and Lateral IMPRESSION: No focal consolidation. Bibasilar subsegmental atelectasis. Hyperinflated lung s may reflect COPD/pulmonary emphysema. Reading Location: [id number]
== END | disposition home or self-care (01) ==
LOC: MTRAD 13:23
PROVIDERS: Referring Provider Family Medicine; Visit Provider Family Medicine
DX: J44.9 Chronic obstructive pulmonary disease, unspecified (principal)
CPT/HCPCS: 71046